=== PATIENT | male | born 1955 | race Two or more races ===

== ENCOUNTER 2024-01-31 14:44 | Inpatient (IN) | payer MEDICARE, MEDICAID ==
[2024-01-31] VITALS (15 sets, daily range): BP systolic 70–159; BP diastolic 21–64; PULSE 89–128; RESP 20; TEMP 99.3–101.1; O2SAT 93–100
[~2024-01-31] VITALS: Ht 182.9 cm; Wt 155.5 kg
[2024-01-31] MEDS: LACTATED RINGER'S 1,000 ML IV ONE (00:14)
[2024-01-31] MEDS: ETOMIDATE (2MG/ML) 20ML VIAL IV ONE ×2 (14:50→15:37)
[2024-01-31] MEDS: ROCURONIUM 10MG/ML 10ML VIAL IV ONE ×2 (14:50→15:37)
[2024-01-31] MEDS: NOREPINEPHRINE 8 MG/250ML KIT 250 ML IV ONE (14:55)
[2024-01-31] MEDS: NOREPINEPHRINE 8 MG/250ML KIT 250 ML IV SCH (15:00)
[2024-01-31 15:26] LABS: Basophils # (auto) 0 10 ^3/uL (0-0.2); Eosinophils # (auto) 0 10 ^3/uL (0-0.8); Eosinophils % (auto) 0.2 % (0.0-7.0); Hematocrit 38.2 % (41.0-53.0); Hemoglobin 12.2 g/dL (13.5-17.5); Lymphocytes # (auto) 0.3 10 ^3/uL (0.4-5.4); Lymphocytes % (auto) 2.9 % (10.0-50.0); Mean Corpuscular Hemoglobin 28.2 pg (28.0-32.0); Mean Corpuscular Hgb Conc. 31.9 g/dL (32.0-36.0); Mean Corpuscular Volume 88.5 fL (80.0-100.0); Monocytes # (auto) 0.1 10 ^3/uL (0-1.3); Monocytes % (auto) 0.6 % (0.0-12.0); Neutrophils # (auto) 8.3 10 ^3/uL (1.6-8.6); Neutrophils % (auto) 96.3 % (37.0-80.0); Nucleated Red Blood Cells % 0.1 %; Red Blood Cells 4.31 10^6/uL (4.5-5.90); Red Cell Distribution Width 16.2 % (11.8-14.3); White Blood Cell 8.6 10^3/uL (4.4-10.8)
[2024-01-31 15:40] LABS: Urine Bacteria MANY /hpf (None Seen); Urine Blood 3+ /uL (Negative); Urine Clarity Ex.Turbid (Clear); Urine Color Light-Orange (Yellow); Urine Mucus FEW (None Seen); Urine Protein, UAD 2+ (Negative); Urine Specific Gravity 1.012 (1.001-1.035); Urine Urobilinogen Normal (Negative); Urine WBC 1284 /hpf (0 - 3); Urine WBC Clumps PRESENT /hpf (None Seen)
[2024-01-31] MEDS: VANCOMYCIN 1GM/200ML 200 ML IV ONE (15:41)
[2024-01-31] MEDS: SODIUM CHLORIDE 0.9% 3,000 ML IV ONE (15:41)
[2024-01-31] MEDS: CEFEPIME 2GM/50ML NS 50 ML IV ONE (15:42)
[2024-01-31 15:45] LABS: Alanine Aminotransferase 12 U/L (7-40); Alkaline Phosphatase 112 U/L (46-116); Anion Gap 9 (5-15); Aspartate Aminotransferase 22 U/L (13-40); BUN/Creatinine Ratio 12.7 (10.0-20.0); Bilirubin, Total 1.2 mg/dL (0.2-1.0); Blood Urea Nitrogen 39 mg/dL (9-23); Calcium 8.9 mg/dL (8.7-10.4); Carbon Dioxide 24 mmol/L (20-30); Chloride 104 mmol/L (98-107); Glucose 83 mg/dL (74-106); Lipase 46 U/L (12-53); Potassium 5.5 mmol/L (3.5-5.1); Sodium 137 mmol/L (136-145)
[2024-01-31 15:47] LABS: Lactic Acid w/Reflex 4.9 mmol/L (0.4-2.0)
[2024-01-31] MEDS: MIDAZOLAM DRIP 50 mg/50mL 50 ML IV ONE (16:24)
[2024-01-31] MEDS: MIDAZOLAM DRIP 50 mg/50mL 50 ML IV SCH (16:31)
[2024-01-31] MEDS: VASOPRESSIN 20 UNITS in SODIUM CHL 0.9% 99 ML IV SCH (16:41)
[2024-01-31 16:48] LABS: Base Excess -3.9 mmol/L (-2.0-2.0)
[2024-01-31] MEDS ORDERED: DOCUSATE SOD 100 MG CAP PO PRN (17:30)
[2024-01-31] MEDS ORDERED: ONDANSETRON HCL 4 MG/2 ML VIAL IV PRN (17:30)
[2024-01-31] MEDS ORDERED: MORPHINE SULFATE INJ 2 MG/ml SYRG IV PRN (17:30)
[2024-01-31] MEDS ORDERED: HYDROmorphone HCL 2 MG/ML VL/or syr IV PRN (17:30)
[2024-01-31] MEDS ORDERED: MAALOX PLUS or MAALOX 30 ML PO PRN (17:30)
[2024-01-31] MEDS ORDERED: NITROGLYCERIN 0.4 MG SL TAB SL PRN (17:30)
[2024-01-31] MEDS: PHENYLEPHRINE IV 250 ML IV ONE ×2 (17:55→17:58)
[2024-01-31] MEDS: fentaNYL Drip 2500mCg/250mlNS 250 ML IV SCH (19:50)
[2024-01-31] MEDS: PHENYLEPHRINE IV 250 ML IV SCH (20:00)
[2024-01-31] MEDS: ACETAMINOPHEN 650 mg PER 20.3 mL UD GT PRN (22:12)
[2024-01-31 22:32] LABS: Hemoglobin 11.9 g/dL (13.5-17.5); Mean Corpuscular Hgb Conc. 32.6 g/dL (32.0-36.0); Red Cell Distribution Width 15.8 % (11.8-14.3)
[2024-01-31 22:37] LABS: Hematocrit 36.5 % (41.0-53.0); Mean Corpuscular Volume 85.8 fL (80.0-100.0); Red Blood Cells 4.26 10^6/uL (4.5-5.90)
[2024-01-31 22:46] LABS: Alanine Aminotransferase 14 U/L (7-40); Albumin 2.8 g/dL (3.2-4.8); Alkaline Phosphatase 115 U/L (46-116); Anion Gap 13 (5-15); Aspartate Aminotransferase 31 U/L (13-40); BUN/Creatinine Ratio 14.3 (10.0-20.0); Bilirubin, Total 1.2 mg/dL (0.2-1.0); Blood Urea Nitrogen 46 mg/dL (9-23); Calcium 8.2 mg/dL (8.7-10.4); Carbon Dioxide 19 mmol/L (20-30); Chloride 107 mmol/L (98-107); Glucose 117 mg/dL (74-106); Magnesium 1.7 mg/dL (1.6-2.6); Potassium 5.1 mmol/L (3.5-5.1); Sodium 139 mmol/L (136-145); Total Protein 5.9 g/dL (5.7-8.2)
[2024-01-31 22:48] LABS: White Blood Cell 44.7 10^3/uL (4.4-10.8)
[2024-01-31 22:49] LABS: Basophils % (manual) 0 (0.0-2.0); Blast Cells 0; Eosinophils % (manual) 0 (0-7); Myelocytes % 0; Promyelocytes % 0; Reactive Lymphocytes 0
[2024-01-31] MEDS: NOREPINEPHRINE BITARTRATE 32 MG in SODIUM CHL 0.9% 218 ML IV SCH (22:56)
[2024-01-31] MEDS: PHENYLEPHRINE INJ 80 MG in SODIUM CHL 0.9% 242 ML IV SCH (22:56)
[2024-01-31] MEDS: SODIUM CHLOR 0.9% PF (SALINE LOCK) 10ML VIAL/SYR IV SCH (22:56)
[2024-01-31 23:25] LABS: Band Neutrophils % (manual) 15
[2024-01-31 23:26] LABS: Anisocytosis Slight; Large Platelets FEW; Lymphocytes % (manual) 1 (10.0-50.0); Metamyelocytes % 1; Monocytes % (manual) 4 (0-12); Platelet Estimate Increased
[2024-02-01] VITALS (113 sets, daily range): BP systolic 78–178; BP diastolic 30–90; PULSE 70–130; RESP 16–25; TEMP 97.7–101.1; O2SAT 85–100
[2024-02-01] MEDS ORDERED: VANCOMYCIN PER PHARMACY 0 MG IV SCH (00:15)
[2024-02-01] MEDS: SODIUM ZIRCONIUM CYCL 10 GM PAK PO ONE (01:20)
[2024-02-01] MEDS: PIPERACILLIN-TAZOB 3.375GM 100 ML IV SCH (01:24)
[2024-02-01] MEDS: LACTATED RINGER'S 1,000 ML IV SCH (01:30)
[2024-02-01 04:23] LABS: Mean Corpuscular Hgb Conc. 33.1 g/dL (32.0-36.0)
[2024-02-01 04:25] LABS: Hematocrit 35.8 % (41.0-53.0); Hemoglobin 11.9 g/dL (13.5-17.5); Mean Corpuscular Hemoglobin 28.1 pg (28.0-32.0); Mean Corpuscular Volume 84.9 fL (80.0-100.0); Red Blood Cells 4.22 10^6/uL (4.5-5.90); Red Cell Distribution Width 15.4 % (11.8-14.3)
[2024-02-01 04:36] LABS: Alanine Aminotransferase 14 U/L (7-40); Albumin 2.8 g/dL (3.2-4.8); Alkaline Phosphatase 113 U/L (46-116); Anion Gap 11 (5-15); Aspartate Aminotransferase 29 U/L (13-40); BUN/Creatinine Ratio 15.4 (10.0-20.0); Bilirubin, Total 1.2 mg/dL (0.2-1.0); Blood Urea Nitrogen 47 mg/dL (9-23); Calcium 8.3 mg/dL (8.7-10.4); Carbon Dioxide 20 mmol/L (20-30); Chloride 106 mmol/L (98-107); Glucose 172 mg/dL (74-106); Potassium 5.4 mmol/L (3.5-5.1); Sodium 137 mmol/L (136-145)
[2024-02-01 04:46] LABS: White Blood Cell 35.2 10^3/uL (4.4-10.8)
[2024-02-01 04:47] LABS: Basophils % (manual) 0 (0.0-2.0); Blast Cells 0; Eosinophils % (manual) 0 (0-7); Metamyelocytes % 0; Myelocytes % 0; Promyelocytes % 0; Reactive Lymphocytes 0
[2024-02-01 04:54] LABS: Anisocytosis Slight; Band Neutrophils % (manual) 4; Large Platelets FEW; Lymphocytes % (manual) 4 (10.0-50.0); Monocytes % (manual) 2 (0-12); Platelet Estimate Adequate
[2024-02-01] MEDS: DOPamine 1600MCG/ML D5W 250 ML IV SCH (06:30)
[2024-02-01 07:38] LABS: Base Excess -3.1 mmol/L (-2.0-2.0)
[2024-02-01] MEDS ORDERED: DEXTROSE (50%) 50ML SYRG IV PRN (08:15)
[2024-02-01 09:03] LABS: INR 1.41 (0.9-1.15); Prothrombin Time 14.6 sec (9.3-11.8)
[2024-02-01] MEDS ORDERED: SODIUM CHLORIDE LOCK 0 ML ONE (09:16)
[2024-02-01] MEDS ORDERED: LIDOCAINE 2%HCL (LOCAL ANESTH.) INJ 20ML MDV ONE (09:16)
[2024-02-01] MEDS ORDERED: EPINEPHrine HCL 1 MG/1 ML AMP ONE (09:17)
[2024-02-01] MEDS ORDERED: MIDAZOLAM HCL 5 MG/ML-1ML VIAL ONE (09:17)
[2024-02-01] MEDS ORDERED: GLYCOPYRROLATE 0.2 MG/ML 1ML VIAL ONE (09:17)
[2024-02-01] MEDS ORDERED: LIDOCAINE 2% JELLY 11ml (GLYDO) ONE (09:18)
[2024-02-01] MEDS ORDERED: fentaNYL CITRATE 100 MCG/2 ML VL ONE (09:18)
[2024-02-01] MEDS ORDERED: MEROPENEM 500MG IVPB 50 ML IV SCH (10:00)
[2024-02-01] MEDS: SODIUM BICARB 8.4% 50Meq/50ml SYR INJ IV ONE (10:14)
[2024-02-01] MEDS: DEXTROSE (50%) 50ML SYRG IV ONE (10:14)
[2024-02-01] MEDS: HYDROCORTISONE SOD SUCC 100 MG/2ML INJ VIAL IV SCH (10:15)
[2024-02-01] MEDS: VANCOMYCIN 1GM/200ML 200 ML IV SCH (10:15)
[2024-02-01] MEDS: PANTOPRAZOLE 40 MG/10 ML VIAL INJ IV SCH (10:15)
[2024-02-01] MEDS: ALBUTEROL SULF 2.5 MG/0.5ML(0.5%) NEB SOLN NEB ONE (10:15)
[2024-02-01] MEDS: InsuLIN REG 1unit/0.01ml Soln (100units/ml) IV ONE (10:29)
[2024-02-01] MEDS: ENOXAPARIN SOD 30 MG/0.3 ML SYRINGE SC SCH (10:30)
[2024-02-01 10:40] LABS: INR 1.63 (0.9-1.15); Partial Thromboplastin Time 32.5 SEC (24.5-34.5); Prothrombin Time 16.7 sec (9.3-11.8)
[2024-02-01 11:28] LABS: Base Excess -4.8 mmol/L (-2.0-2.0)
[2024-02-01] MEDS: MEROPENEM 500MG IVPB 50 ML IV ONE (11:43)
[2024-02-01] MEDS: ACCU-CHEK COMFORT CURVE STRIP VI SCH (11:47)
[2024-02-01] MEDS: InsuLIN REG 1unit/0.01ml Soln (100units/ml) SC SCH (12:04)
[2024-02-01 13:48] LABS: Chloride 106 mmol/L (98-107); Potassium 4.7 mmol/L (3.5-5.1); Sodium 140 mmol/L (136-145)
[2024-02-01 13:49] LABS: Anion Gap 10 (5-15); Carbon Dioxide 24 mmol/L (20-30)
[2024-02-01 13:50] LABS: Calcium 8.5 mg/dL (8.7-10.4)
[2024-02-01 13:54] LABS: Glucose 155 mg/dL (74-106)
[2024-02-01 13:55] LABS: BUN/Creatinine Ratio 18.6 (10.0-20.0); Blood Urea Nitrogen 50 mg/dL (9-23)
[2024-02-01 16:20] LABS: Base Excess -5.1 mmol/L (-2.0-2.0)
[2024-02-01] MEDS: ENOXAPARIN SOD 30 MG/0.3 ML SYRINGE SC ONE (18:38)
[2024-02-01] MEDS: MEROPENEM 500MG IVPB 50 ML IV SCH (21:03)
[2024-02-01 22:24] LABS: Base Excess -2.8 mmol/L (-2.0-2.0)
[2024-02-01] MEDS: AZITHROMYCIN 500MG/ 250ML 250 ML IV ONE (23:26)
[2024-02-02] VITALS (111 sets, daily range): BP systolic 93–159; BP diastolic 30–94; PULSE 38–110; RESP 16–37; TEMP 97–99; O2SAT 98–100
[2024-02-02 04:00] LABS: Basophils # (auto) 0 10 ^3/uL (0-0.2); Basophils % (auto) 0.1 % (0.0-2.0); Eosinophils # (auto) 0.2 10 ^3/uL (0-0.8); Eosinophils % (auto) 0.9 % (0.0-7.0); Hematocrit 33.5 % (41.0-53.0); Hemoglobin 11.2 g/dL (13.5-17.5); Lymphocytes # (auto) 0.4 10 ^3/uL (0.4-5.4); Lymphocytes % (auto) 1.9 % (10.0-50.0); Mean Corpuscular Hemoglobin 28.1 pg (28.0-32.0); Mean Corpuscular Hgb Conc. 33.3 g/dL (32.0-36.0); Mean Corpuscular Volume 84.2 fL (80.0-100.0); Monocytes # (auto) 0.8 10 ^3/uL (0-1.3); Monocytes % (auto) 3.5 % (0.0-12.0); Neutrophils # (auto) 21.6 10 ^3/uL (1.6-8.6); Neutrophils % (auto) 93.6 % (37.0-80.0); Red Blood Cells 3.98 10^6/uL (4.5-5.90); Red Cell Distribution Width 15.7 % (11.8-14.3)
[2024-02-02 04:17] LABS: Alanine Aminotransferase 13 U/L (7-40); Albumin 2.8 g/dL (3.2-4.8); Alkaline Phosphatase 103 U/L (46-116); Anion Gap 8 (5-15); Aspartate Aminotransferase 21 U/L (13-40); BUN/Creatinine Ratio 23.7 (10.0-20.0); Blood Urea Nitrogen 47 mg/dL (9-23); Calcium 8.5 mg/dL (8.7-10.4); Carbon Dioxide 25 mmol/L (20-30); Chloride 107 mmol/L (98-107); GFR African American 43 mL/min; GFR Non-African American 36 mL/min; Glucose 175 mg/dL (74-106); Magnesium 1.9 mg/dL (1.6-2.6); Sodium 140 mmol/L (136-145)
[2024-02-02 04:18] LABS: Bilirubin, Total 0.6 mg/dL (0.2-1.0); Phosphorus 4.4 mg/dL (2.4-5.1)
[2024-02-02 08:13] LABS: Base Excess -0.9 mmol/L (-2.0-2.0)
[2024-02-02] MEDS ORDERED: Nepro With Carb Steady 1 Liter Bottle GT SCH (08:30)
[2024-02-02] MEDS ORDERED: LIDOCAINE 2% JELLY 11ml (GLYDO) ONE (08:47)
[2024-02-02] MEDS ORDERED: LIDOCAINE 2%HCL (LOCAL ANESTH.) INJ 20ML MDV ONE (08:47)
[2024-02-02] MEDS ORDERED: EPINEPHrine HCL 1 MG/1 ML AMP ONE (08:47)
[2024-02-02] MEDS ORDERED: GLYCOPYRROLATE 0.2 MG/ML 1ML VIAL ONE (08:48)
[2024-02-02] MEDS: AZITHROMYCIN 500MG/ 250ML 250 ML IV SCH (12:49)
[2024-02-02] MEDS: ENOXAPARIN SOD 60 MG/0.6 ML SYRINGE SC ONE (21:28)
[2024-02-03] VITALS (107 sets, daily range): BP systolic 94–161; BP diastolic 37–83; PULSE 46–88; RESP 17–24; TEMP 96.3–98.5; O2SAT 95–100
[2024-02-03 03:52] LABS: Basophils # (auto) 0 10 ^3/uL (0-0.2); Eosinophils # (auto) 0 10 ^3/uL (0-0.8); Hematocrit 31.6 % (41.0-53.0); Hemoglobin 10.5 g/dL (13.5-17.5); Lymphocytes # (auto) 0.5 10 ^3/uL (0.4-5.4); Lymphocytes % (auto) 3.5 % (10.0-50.0); Mean Corpuscular Hemoglobin 28.2 pg (28.0-32.0); Mean Corpuscular Hgb Conc. 33.3 g/dL (32.0-36.0); Mean Corpuscular Volume 84.6 fL (80.0-100.0); Monocytes # (auto) 0.4 10 ^3/uL (0-1.3); Monocytes % (auto) 3.1 % (0.0-12.0); Neutrophils # (auto) 12.1 10 ^3/uL (1.6-8.6); Neutrophils % (auto) 93.4 % (37.0-80.0); Nucleated Red Blood Cells % 0.1 %; Red Blood Cells 3.74 10^6/uL (4.5-5.90); Red Cell Distribution Width 15.7 % (11.8-14.3)
[2024-02-03 04:06] LABS: Alanine Aminotransferase 11 U/L (7-40); Albumin 2.5 g/dL (3.2-4.8); Alkaline Phosphatase 79 U/L (46-116); Anion Gap 5 (5-15); Aspartate Aminotransferase 16 U/L (13-40); BUN/Creatinine Ratio 34.2 (10.0-20.0); Blood Urea Nitrogen 41 mg/dL (9-23); Calcium 8.5 mg/dL (8.7-10.4); Carbon Dioxide 28 mmol/L (20-30); Chloride 111 mmol/L (98-107); Glucose 130 mg/dL (74-106); Magnesium 2.2 mg/dL (1.6-2.6); Potassium 4.2 mmol/L (3.5-5.1); Sodium 144 mmol/L (136-145)
[2024-02-03 04:07] LABS: Bilirubin, Total 0.5 mg/dL (0.2-1.0); Total Protein 5.4 g/dL (5.7-8.2)
[2024-02-03 08:07] LABS: Base Excess 1.7 mmol/L (-2.0-2.0)
[2024-02-03] MEDS: NOREPINEPHRINE 8 MG/250ML KIT 250 ML IV SCH (09:00)
[2024-02-03] MEDS: ENOXAPARIN SOD 100 MG/1 ML SYRINGE SC SCH (10:36)
[2024-02-03 11:22] LABS: Basophils # (auto) 0 10 ^3/uL (0-0.2); Basophils % (auto) 0.1 % (0.0-2.0); Eosinophils # (auto) 0 10 ^3/uL (0-0.8); Eosinophils % (auto) 0.1 % (0.0-7.0); Hematocrit 30.1 % (41.0-53.0); Lymphocytes # (auto) 0.6 10 ^3/uL (0.4-5.4); Lymphocytes % (auto) 6.3 % (10.0-50.0); Mean Corpuscular Hemoglobin 28.2 pg (28.0-32.0); Mean Corpuscular Hgb Conc. 33.3 g/dL (32.0-36.0); Mean Corpuscular Volume 84.7 fL (80.0-100.0); Monocytes # (auto) 0.4 10 ^3/uL (0-1.3); Monocytes % (auto) 4.5 % (0.0-12.0); Neutrophils # (auto) 8.8 10 ^3/uL (1.6-8.6); Red Blood Cells 3.55 10^6/uL (4.5-5.90); Red Cell Distribution Width 15.4 % (11.8-14.3); White Blood Cell 9.8 10^3/uL (4.4-10.8)
[2024-02-03 11:33] LABS: Chloride 112 mmol/L (98-107); Sodium 145 mmol/L (136-145)
[2024-02-03 11:34] LABS: Anion Gap 3 (5-15); Carbon Dioxide 30 mmol/L (20-30)
[2024-02-03 11:35] LABS: Calcium 8.4 mg/dL (8.7-10.4)
[2024-02-03 11:39] LABS: BUN/Creatinine Ratio 38.8 (10.0-20.0); Blood Urea Nitrogen 40 mg/dL (9-23); Glucose 125 mg/dL (74-106)
[2024-02-03] MEDS: AMPICILLIN SOD 2GM INJ 2 GM in SODIUM CHL 0.9% 100 ML IV SCH (18:08)
[2024-02-03] MEDS: HYDROCORTISONE SOD SUCC 100 MG/2ML INJ VIAL IV SCH (21:57)
[2024-02-04] VITALS (109 sets, daily range): BP systolic 90–184; BP diastolic 35–128; PULSE 59–147; RESP 12–25; TEMP 96.6–99.1; O2SAT 90–100
[2024-02-04 04:09] LABS: Basophils # (auto) 0 10 ^3/uL (0-0.2); Basophils % (auto) 0.1 % (0.0-2.0); Eosinophils # (auto) 0 10 ^3/uL (0-0.8); Eosinophils % (auto) 0.1 % (0.0-7.0); Hematocrit 31.1 % (41.0-53.0); Hemoglobin 10.5 g/dL (13.5-17.5); Lymphocytes # (auto) 0.6 10 ^3/uL (0.4-5.4); Lymphocytes % (auto) 7.2 % (10.0-50.0); Mean Corpuscular Hemoglobin 28.2 pg (28.0-32.0); Mean Corpuscular Hgb Conc. 33.6 g/dL (32.0-36.0); Monocytes # (auto) 0.4 10 ^3/uL (0-1.3); Monocytes % (auto) 5.1 % (0.0-12.0); Neutrophils # (auto) 6.9 10 ^3/uL (1.6-8.6); Neutrophils % (auto) 87.5 % (37.0-80.0); Nucleated Red Blood Cells % 0.1 %; Red Cell Distribution Width 15.5 % (11.8-14.3); White Blood Cell 7.8 10^3/uL (4.4-10.8)
[2024-02-04 04:38] LABS: Alanine Aminotransferase 21 U/L (7-40); Albumin 2.4 g/dL (3.2-4.8); Alkaline Phosphatase 79 U/L (46-116); Anion Gap 5 (5-15); Aspartate Aminotransferase 36 U/L (13-40); BUN/Creatinine Ratio 44.6 (10.0-20.0); Blood Urea Nitrogen 37 mg/dL (9-23); Calcium 8.5 mg/dL (8.7-10.4); Carbon Dioxide 29 mmol/L (20-30); Chloride 113 mmol/L (98-107); Glucose 123 mg/dL (74-106); Potassium 3.9 mmol/L (3.5-5.1); Sodium 147 mmol/L (136-145)
[2024-02-04 04:39] LABS: Bilirubin, Total 0.5 mg/dL (0.2-1.0)
[2024-02-04 07:15] LABS: Base Excess 4.6 mmol/L (-2.0-2.0)
[2024-02-04] MEDS: ALBUMIN 25% 100 ML IV SCH (10:15)
[2024-02-04] MEDS: ALBUMIN 25% 100 ML IV ONE (10:15)
[2024-02-04] MEDS: FUROSEMIDE 20 MG/2 ML VIAL IV ONE (12:34)
[2024-02-04] MEDS: FREE WATER GT SCH (14:00)
[2024-02-04] MEDS ORDERED: MEROPENEM 1GM IVPB 50 ML IV SCH (18:00)
[2024-02-04] MEDS: MEROPENEM 1GM IVPB 50 ML IV SCH (19:00)
[2024-02-05] VITALS (88 sets, daily range): BP systolic 85–194; BP diastolic 53–135; PULSE 71–151; RESP 12–35; TEMP 97.5–98.8; O2SAT 81–100
[2024-02-05 03:30] LABS: Basophils # (auto) 0 10 ^3/uL (0-0.2); Basophils % (auto) 0.1 % (0.0-2.0); Eosinophils # (auto) 0 10 ^3/uL (0-0.8); Eosinophils % (auto) 0.1 % (0.0-7.0); Hemoglobin 10.4 g/dL (13.5-17.5); Lymphocytes # (auto) 0.6 10 ^3/uL (0.4-5.4); Lymphocytes % (auto) 10.3 % (10.0-50.0); Mean Corpuscular Hemoglobin 28.6 pg (28.0-32.0); Mean Corpuscular Hgb Conc. 33.7 g/dL (32.0-36.0); Mean Corpuscular Volume 84.9 fL (80.0-100.0); Monocytes # (auto) 0.2 10 ^3/uL (0-1.3); Monocytes % (auto) 4.5 % (0.0-12.0); Neutrophils # (auto) 4.7 10 ^3/uL (1.6-8.6); Nucleated Red Blood Cells % 0.1 %; Red Blood Cells 3.65 10^6/uL (4.5-5.90); Red Cell Distribution Width 14.8 % (11.8-14.3); White Blood Cell 5.5 10^3/uL (4.4-10.8)
[2024-02-05 03:44] LABS: Chloride 110 mmol/L (98-107); Potassium 3.6 mmol/L (3.5-5.1); Sodium 146 mmol/L (136-145)
[2024-02-05 03:45] LABS: Anion Gap 5 (5-15); Calcium 8.9 mg/dL (8.7-10.4); Carbon Dioxide 31 mmol/L (20-30)
[2024-02-05 03:50] LABS: Blood Urea Nitrogen 33 mg/dL (9-23); Glucose 140 mg/dL (74-106)
[2024-02-05 07:05] LABS: Base Excess 3.3 mmol/L (-2.0-2.0)
[2024-02-05] MEDS: hydrALAZINE HCL 20 MG/ML VL ONE (08:16)
[2024-02-05] MEDS: hydrALAZINE HCL 20 MG/ML VL IV PRN (08:20)
[2024-02-05] MEDS: FUROSEMIDE 20 MG/2 ML VIAL IV ONE (08:48)
[2024-02-05 09:31] LABS: Base Excess 4.1 mmol/L (-2.0-2.0)
[2024-02-05] MEDS: FUROSEMIDE 20 MG/2 ML VIAL IV SCH (09:41)
[2024-02-05] MEDS: METOPROLOL TARTRATE 1MG/1ML-5ML VIAL IV ONE (09:42)
[2024-02-05] MEDS: ENOXAPARIN SOD 150 MG/1 ML SYRINGE SC SCH (09:55)
[2024-02-05] MEDS ORDERED: ENOXAPARIN SOD 100 MG/1 ML SYRINGE SC SCH (10:00)
[2024-02-06] VITALS (41 sets, daily range): BP systolic 114–173; BP diastolic 44–141; PULSE 73–127; RESP 12–23; TEMP 97.8–98.6; O2SAT 88–100
[2024-02-06 03:47] LABS: Basophils # (auto) 0 10 ^3/uL (0-0.2); Basophils % (auto) 0.1 % (0.0-2.0); Eosinophils # (auto) 0 10 ^3/uL (0-0.8); Eosinophils % (auto) 0.5 % (0.0-7.0); Lymphocytes # (auto) 0.7 10 ^3/uL (0.4-5.4); Lymphocytes % (auto) 12.8 % (10.0-50.0); Mean Corpuscular Hemoglobin 28.4 pg (28.0-32.0); Mean Corpuscular Hgb Conc. 33.3 g/dL (32.0-36.0); Mean Corpuscular Volume 85.5 fL (80.0-100.0); Monocytes # (auto) 0.3 10 ^3/uL (0-1.3); Neutrophils # (auto) 4.7 10 ^3/uL (1.6-8.6); Neutrophils % (auto) 81.6 % (37.0-80.0); Red Blood Cells 3.86 10^6/uL (4.5-5.90); Red Cell Distribution Width 15.1 % (11.8-14.3); White Blood Cell 5.8 10^3/uL (4.4-10.8)
[2024-02-06 04:06] LABS: Alanine Aminotransferase 29 U/L (7-40); Alkaline Phosphatase 69 U/L (46-116); Anion Gap 5 (5-15); BUN/Creatinine Ratio 41.4 (10.0-20.0); Blood Urea Nitrogen 29 mg/dL (9-23); Calcium 8.8 mg/dL (8.7-10.4); Carbon Dioxide 35 mmol/L (20-30); Chloride 110 mmol/L (98-107); Glucose 107 mg/dL (74-106); Magnesium 1.9 mg/dL (1.6-2.6); Potassium 3.7 mmol/L (3.5-5.1); Sodium 150 mmol/L (136-145)
[2024-02-06 04:07] LABS: Albumin 2.9 g/dL (3.2-4.8); Aspartate Aminotransferase 29 U/L (13-40); Bilirubin, Total 0.6 mg/dL (0.2-1.0); Total Protein 5.7 g/dL (5.7-8.2)
[2024-02-06] MEDS: D5W 5% 1,000 ML IV SCH (06:18)
[2024-02-06] MEDS: FUROSEMIDE 20 MG/2 ML VIAL IV SCH (06:20)
[2024-02-06] MEDS: DOCUSATE SOD 100 MG CAP PO ONE (08:45)
[2024-02-06] MEDS ORDERED: DOCUSATE SOD 100 MG CAP PO PRN (08:45)
[2024-02-06 09:20] LABS: Urine Bacteria FEW /hpf (None Seen); Urine Blood 3+ /uL (Negative); Urine Clarity Turbid (Clear); Urine Color Yellow (Yellow); Urine Mucus FEW (None Seen); Urine Protein, UAD TRACE (Negative); Urine Specific Gravity 1.017 (1.001-1.035); Urine Urobilinogen Normal (Negative); Urine WBC 73 /hpf (0 - 3); Urine pH 5.5 (5.0-9.0)
[2024-02-06] MEDS ORDERED: FUROSEMIDE 20 MG/2 ML VIAL IV SCH (10:00)
[2024-02-06] MEDS: METOPROLOL TARTRATE 1MG/1ML-5ML VIAL IV ONE ×2 (10:08→10:10)
[2024-02-06] MEDS: CARVEDILOL 3.125 MG TAB PO ONE (21:29)
[2024-02-06] MEDS: CARVEDILOL 3.125 MG TAB PO SCH (22:00)
[2024-02-07] VITALS (29 sets, daily range): BP systolic 69–141; BP diastolic 37–66; PULSE 78–128; RESP 13–24; TEMP 97.6–98.5; O2SAT 93–100
[2024-02-07 05:06] LABS: Basophils # (auto) 0 10 ^3/uL (0-0.2); Basophils % (auto) 0.2 % (0.0-2.0); Eosinophils # (auto) 0.3 10 ^3/uL (0-0.8); Eosinophils % (auto) 3.8 % (0.0-7.0); Hematocrit 34.1 % (41.0-53.0); Hemoglobin 11.4 g/dL (13.5-17.5); Lymphocytes # (auto) 1.3 10 ^3/uL (0.4-5.4); Lymphocytes % (auto) 16.5 % (10.0-50.0); Mean Corpuscular Hemoglobin 28.3 pg (28.0-32.0); Mean Corpuscular Hgb Conc. 33.4 g/dL (32.0-36.0); Mean Corpuscular Volume 84.9 fL (80.0-100.0); Monocytes # (auto) 0.6 10 ^3/uL (0-1.3); Monocytes % (auto) 7.8 % (0.0-12.0); Neutrophils # (auto) 5.8 10 ^3/uL (1.6-8.6); Neutrophils % (auto) 71.7 % (37.0-80.0); Nucleated Red Blood Cells % 0.1 %; Red Blood Cells 4.02 10^6/uL (4.5-5.90); White Blood Cell 8.1 10^3/uL (4.4-10.8)
[2024-02-07 05:20] LABS: Alanine Aminotransferase 33 U/L (7-40); Albumin 2.8 g/dL (3.2-4.8); Alkaline Phosphatase 65 U/L (46-116); Aspartate Aminotransferase 30 U/L (13-40); BUN/Creatinine Ratio 35.9 (10.0-20.0); Blood Urea Nitrogen 23 mg/dL (9-23); Calcium 8.4 mg/dL (8.7-10.4); Chloride 105 mmol/L (98-107); Glucose 95 mg/dL (74-106); Magnesium 1.5 mg/dL (1.6-2.6); Potassium 2.9 mmol/L (3.5-5.1); Sodium 148 mmol/L (136-145)
[2024-02-07 05:21] LABS: Bilirubin, Total 0.7 mg/dL (0.2-1.0); Total Protein 5.3 g/dL (5.7-8.2)
[2024-02-07 05:28] LABS: Anion Gap 2.99999 (5-15); Carbon Dioxide > 40 mmol/L (20-30)
[2024-02-07] MEDS: POTASSIUM CHL 20MEQ/100ML 100 ML IV ONE (06:29)
[2024-02-07] MEDS: MAGNESIUM SULFATE 1GM/100ML 100 ML IV SCH (08:52)
[2024-02-07 08:56] LABS: INR 1.3 (0.9-1.15); Partial Thromboplastin Time 34.7 SEC (24.5-34.5); Prothrombin Time 13.5 sec (9.3-11.8)
[2024-02-07] MEDS: POTASSIUM CHL 20MEQ/100ML 100 ML IV SCH (10:20)
[2024-02-07] MEDS ORDERED: ACETYLCYSTEINE 10 %(100MG/ML) SOL 4ML NEB PRN (10:30)
[2024-02-07 13:18] LABS: Base Excess 13.6 mmol/L (-2.0-2.0)
[2024-02-07] MEDS: POTASSIUM CHLORIDE 20 MEQ, LIDOCAINE 1% (LOCAL ANESTH.) 2 ML in SODIUM CHL 0.9% 100 ML IV ONE (13:29)
[2024-02-07] MEDS ORDERED: ACETYLCYSTEINE 10 %(100MG/ML) SOL 4ML NEB SCH (14:00)
[2024-02-07] MEDS ORDERED: IPRATROPIUM BROM 0.5 MG/2.5ML INH SOL NEB SCH (14:00)
[2024-02-07] MEDS ORDERED: ALBUTEROL SULF 2.5 MG/0.5ML(0.5%) NEB SOLN NEB SCH (14:00)
[2024-02-07 14:47] LABS: Body Fluid Red Blood Cells 310000 CUMM (0-2000); Body Fluid White Blood Cells 5 CUMM (0-200)
[2024-02-08] VITALS (17 sets, daily range): BP systolic 105–131; BP diastolic 43–65; PULSE 78–97; RESP 13–22; TEMP 97–98.4; O2SAT 94–100
[2024-02-08 05:31] LABS: Basophils # (auto) 0 10 ^3/uL (0-0.2); Basophils % (auto) 0.3 % (0.0-2.0); Eosinophils # (auto) 0.4 10 ^3/uL (0-0.8); Eosinophils % (auto) 6.8 % (0.0-7.0); Hematocrit 34.2 % (41.0-53.0); Hemoglobin 11.5 g/dL (13.5-17.5); Lymphocytes # (auto) 1.3 10 ^3/uL (0.4-5.4); Lymphocytes % (auto) 20.9 % (10.0-50.0); Mean Corpuscular Hemoglobin 28.5 pg (28.0-32.0); Mean Corpuscular Hgb Conc. 33.7 g/dL (32.0-36.0); Mean Corpuscular Volume 84.5 fL (80.0-100.0); Monocytes # (auto) 0.5 10 ^3/uL (0-1.3); Monocytes % (auto) 8.8 % (0.0-12.0); Neutrophils # (auto) 3.9 10 ^3/uL (1.6-8.6); Neutrophils % (auto) 63.2 % (37.0-80.0); Red Blood Cells 4.05 10^6/uL (4.5-5.90); Red Cell Distribution Width 15.1 % (11.8-14.3); White Blood Cell 6.2 10^3/uL (4.4-10.8)
[2024-02-08 05:38] LABS: Alanine Aminotransferase 30 U/L (7-40); Albumin 2.7 g/dL (3.2-4.8); Alkaline Phosphatase 61 U/L (46-116); Aspartate Aminotransferase 25 U/L (13-40); BUN/Creatinine Ratio 33.9 (10.0-20.0); Blood Urea Nitrogen 19 mg/dL (9-23); Calcium 8.3 mg/dL (8.7-10.4); Chloride 101 mmol/L (98-107); Glucose 91 mg/dL (74-106); Magnesium 1.7 mg/dL (1.6-2.6); Sodium 146 mmol/L (136-145); Total Protein 5.3 g/dL (5.7-8.2)
[2024-02-08 05:57] LABS: Anion Gap 4.99999 (5-15); Carbon Dioxide > 40 mmol/L (20-30)
[2024-02-08] MEDS: POTASSIUM CHL 20MEQ/100ML 100 ML IV ONE (07:00)
[2024-02-08 07:39] LABS: Base Excess 15.8 mmol/L (-2.0-2.0)
[2024-02-08] MEDS: POTASSIUM CHL 20MEQ/100ML 100 ML IV SCH (09:00)
[2024-02-08] MEDS: MAGNESIUM SULFATE 1GM/100ML 100 ML IV SCH (09:52)
[2024-02-08] MEDS: ASPirin 81 mg TAB PO SCH (09:56)
[2024-02-08 13:08] LABS: Protein, Body Fluid 2.9 g/dL (.)
[2024-02-08] MEDS ORDERED: ACETYLCYSTEINE 10 %(100MG/ML) SOL 4ML NEB ONE (13:30)
[2024-02-08] MEDS ORDERED: ACETYLCYSTEINE 10 %(100MG/ML) SOL 4ML NEB PRN (13:30)
[2024-02-08] MEDS: ALBUTEROL SULF 2.5 MG/0.5ML(0.5%) NEB SOLN NEB SCH (18:36)
[2024-02-08] MEDS: ACETYLCYSTEINE 10 %(100MG/ML) SOL 4ML NEB SCH (18:36)
[2024-02-08 21:11] LABS: Potassium 3.6 mmol/L (3.5-5.1)
[2024-02-08 21:17] LABS: Magnesium 1.9 mg/dL (1.6-2.6)
[2024-02-08] MEDS: ACETAMINOPHEN 325 MG TAB PO PRN (22:44)
[2024-02-08] MEDS: ATORVASTATIN 20 MG TAB PO SCH (22:44)
[2024-02-08] MEDS: CEFEPIME 2GM/50ML NS 50 ML IV ONE (23:30)
[2024-02-09] VITALS (24 sets, daily range): BP systolic 109–126; BP diastolic 33–56; PULSE 69–97; RESP 15–24; TEMP 97.7–98.5; O2SAT 89–100
[2024-02-09 05:13] LABS: Basophils # (auto) 0 10 ^3/uL (0-0.2); Basophils % (auto) 0.4 % (0.0-2.0); Eosinophils # (auto) 0.6 10 ^3/uL (0-0.8); Eosinophils % (auto) 10.6 % (0.0-7.0); Hematocrit 36.3 % (41.0-53.0); Lymphocytes # (auto) 1.5 10 ^3/uL (0.4-5.4); Lymphocytes % (auto) 26.1 % (10.0-50.0); Mean Corpuscular Hemoglobin 28.1 pg (28.0-32.0); Mean Corpuscular Hgb Conc. 33.1 g/dL (32.0-36.0); Mean Corpuscular Volume 84.6 fL (80.0-100.0); Monocytes # (auto) 0.5 10 ^3/uL (0-1.3); Monocytes % (auto) 9.2 % (0.0-12.0); Neutrophils % (auto) 53.7 % (37.0-80.0); Nucleated Red Blood Cells % 0.1 %; Red Blood Cells 4.29 10^6/uL (4.5-5.90); Red Cell Distribution Width 15.3 % (11.8-14.3); White Blood Cell 5.7 10^3/uL (4.4-10.8)
[2024-02-09 05:29] LABS: Alanine Aminotransferase 27 U/L (7-40); Albumin 2.6 g/dL (3.2-4.8); Alkaline Phosphatase 58 U/L (46-116); Aspartate Aminotransferase 26 U/L (13-40); BUN/Creatinine Ratio 24.6 (10.0-20.0); Blood Urea Nitrogen 14 mg/dL (9-23); Calcium 8.1 mg/dL (8.7-10.4); Chloride 99 mmol/L (98-107); Glucose 104 mg/dL (74-106); Magnesium 1.8 mg/dL (1.6-2.6); Potassium 3.2 mmol/L (3.5-5.1); Sodium 144 mmol/L (136-145)
[2024-02-09 05:30] LABS: Bilirubin, Total 1.2 mg/dL (0.2-1.0); Total Protein 5.3 g/dL (5.7-8.2)
[2024-02-09 05:38] LABS: Anion Gap 4.99999 (5-15)
[2024-02-09 05:39] LABS: Carbon Dioxide > 40 mmol/L (20-30)
[2024-02-09] MEDS: MAGNESIUM SULFATE 1GM/100ML 100 ML IV SCH (06:33)
[2024-02-09] MEDS: POTASSIUM CHL 20MEQ/100ML 100 ML IV ONE (08:06)
[2024-02-09 08:18] LABS: Base Excess 13.8 mmol/L (-2.0-2.0)
[2024-02-09] MEDS: CEFEPIME 2GM/50ML NS 50 ML IV SCH (09:55)
[2024-02-09] MEDS: ENOXAPARIN SOD 40 MG/0.4 ML SYRINGE SC SCH (09:57)
[2024-02-09] MEDS ORDERED: ENOXAPARIN SOD 40 MG/0.4 ML SYRINGE SC SCH (10:00)
[2024-02-09] MEDS: ACETYLCYSTEINE 10 %(100MG/ML) SOL 4ML NEB SCH (10:52)
[2024-02-09] MEDS: ALBUTEROL SULF 2.5 MG/0.5ML(0.5%) NEB SOLN NEB SCH (15:50)
[2024-02-09] MEDS: CEFEPIME 2GM/50ML 50 ML IV SCH (17:57)
[2024-02-09 20:19] LABS: Potassium 3.4 mmol/L (3.5-5.1)
[2024-02-09] MEDS ORDERED: CEFEPIME 2GM/50ML 50 ML IV SCH (22:00)
[2024-02-09] MEDS: POTASSIUM EFFERVESENT TAB 25 MEQ PO ONE (22:48)
[2024-02-10] VITALS (45 sets, daily range): BP systolic 73–130; BP diastolic 19–67; PULSE 76–108; RESP 11–28; TEMP 97.8–98.7; O2SAT 89–100
[2024-02-10 06:20] LABS: Basophils # (auto) 0 10 ^3/uL (0-0.2); Basophils % (auto) 0.5 % (0.0-2.0); Eosinophils # (auto) 0.6 10 ^3/uL (0-0.8); Hematocrit 35.2 % (41.0-53.0); Lymphocytes # (auto) 1.5 10 ^3/uL (0.4-5.4); Lymphocytes % (auto) 22.3 % (10.0-50.0); Mean Corpuscular Hemoglobin 28.5 pg (28.0-32.0); Mean Corpuscular Volume 83.7 fL (80.0-100.0); Monocytes # (auto) 0.6 10 ^3/uL (0-1.3); Monocytes % (auto) 8.4 % (0.0-12.0); Neutrophils % (auto) 59.8 % (37.0-80.0); Nucleated Red Blood Cells % 0.1 %; Red Blood Cells 4.21 10^6/uL (4.5-5.90); Red Cell Distribution Width 15.3 % (11.8-14.3); White Blood Cell 6.6 10^3/uL (4.4-10.8)
[2024-02-10 06:37] LABS: Alanine Aminotransferase 29 U/L (7-40); Albumin 2.8 g/dL (3.2-4.8); Alkaline Phosphatase 59 U/L (46-116); BUN/Creatinine Ratio 28.8 (10.0-20.0); Blood Urea Nitrogen 17 mg/dL (9-23); Calcium 8.3 mg/dL (8.7-10.4); Chloride 97 mmol/L (98-107); Glucose 98 mg/dL (74-106); Magnesium 1.9 mg/dL (1.6-2.6); Potassium 3.6 mmol/L (3.5-5.1); Sodium 140 mmol/L (136-145)
[2024-02-10 06:38] LABS: Bilirubin, Total 1.5 mg/dL (0.2-1.0); Total Protein 5.5 g/dL (5.7-8.2)
[2024-02-10 06:52] LABS: Aspartate Aminotransferase 25 U/L (13-40)
[2024-02-10 06:57] LABS: Anion Gap 2.99999 (5-15); Carbon Dioxide > 40 mmol/L (20-30)
[2024-02-10 09:09] LABS: Base Excess 9.4 mmol/L (-2.0-2.0)
[2024-02-10] MEDS: POTASSIUM EFFERVESENT TAB 25 MEQ PO ONE (09:12)
[2024-02-10] MEDS: fentaNYL CITRATE 100 MCG/2 ML VL IV ONE (18:23)
[2024-02-10] MEDS: MIDAZOLAM HCL 5 MG/ML-1ML VIAL IV ONE (18:23)
[2024-02-11] VITALS (35 sets, daily range): BP systolic 91–127; BP diastolic 40–60; PULSE 75–105; RESP 13–25; TEMP 97.5–99.2; O2SAT 92–100
[2024-02-11 05:14] LABS: Basophils # (auto) 0.1 10 ^3/uL (0-0.2); Basophils % (auto) 0.8 % (0.0-2.0); Eosinophils # (auto) 0.5 10 ^3/uL (0-0.8); Eosinophils % (auto) 5.9 % (0.0-7.0); Hematocrit 34.6 % (41.0-53.0); Hemoglobin 11.8 g/dL (13.5-17.5); Lymphocytes # (auto) 1.8 10 ^3/uL (0.4-5.4); Mean Corpuscular Hgb Conc. 34.2 g/dL (32.0-36.0); Mean Corpuscular Volume 84.7 fL (80.0-100.0); Monocytes # (auto) 0.7 10 ^3/uL (0-1.3); Monocytes % (auto) 7.9 % (0.0-12.0); Neutrophils # (auto) 5.4 10 ^3/uL (1.6-8.6); Neutrophils % (auto) 64.4 % (37.0-80.0); Nucleated Red Blood Cells % 0.4 %; Red Blood Cells 4.08 10^6/uL (4.5-5.90); Red Cell Distribution Width 15.6 % (11.8-14.3); White Blood Cell 8.4 10^3/uL (4.4-10.8)
[2024-02-11 05:29] LABS: Alanine Aminotransferase 29 U/L (7-40); Alkaline Phosphatase 59 U/L (46-116); Anion Gap 3 (5-15); Aspartate Aminotransferase 33 U/L (13-40); BUN/Creatinine Ratio 26.3 (10.0-20.0); Blood Urea Nitrogen 15 mg/dL (9-23); Calcium 8.6 mg/dL (8.7-10.4); Carbon Dioxide 36 mmol/L (20-30); Chloride 99 mmol/L (98-107); Glucose 100 mg/dL (74-106); Magnesium 1.8 mg/dL (1.6-2.6); Potassium 4.2 mmol/L (3.5-5.1); Sodium 138 mmol/L (136-145)
[2024-02-11 05:30] LABS: Albumin 2.7 g/dL (3.2-4.8); Bilirubin, Total 1.5 mg/dL (0.2-1.0); Total Protein 5.6 g/dL (5.7-8.2)
[2024-02-12] VITALS (29 sets, daily range): BP systolic 90–128; BP diastolic 33–75; PULSE 76–105; RESP 9–26; TEMP 97.5–98.7; O2SAT 93–100
[2024-02-12 04:59] LABS: Basophils # (auto) 0.1 10 ^3/uL (0-0.2); Basophils % (auto) 0.8 % (0.0-2.0); Eosinophils # (auto) 0.4 10 ^3/uL (0-0.8); Eosinophils % (auto) 6.5 % (0.0-7.0); Hematocrit 35.8 % (41.0-53.0); Hemoglobin 12.1 g/dL (13.5-17.5); Lymphocytes # (auto) 1.8 10 ^3/uL (0.4-5.4); Lymphocytes % (auto) 27.5 % (10.0-50.0); Mean Corpuscular Hemoglobin 28.1 pg (28.0-32.0); Mean Corpuscular Hgb Conc. 33.8 g/dL (32.0-36.0); Mean Corpuscular Volume 83.1 fL (80.0-100.0); Monocytes # (auto) 0.6 10 ^3/uL (0-1.3); Monocytes % (auto) 9.8 % (0.0-12.0); Neutrophils # (auto) 3.6 10 ^3/uL (1.6-8.6); Neutrophils % (auto) 55.4 % (37.0-80.0); Nucleated Red Blood Cells % 0.1 %; Red Blood Cells 4.31 10^6/uL (4.5-5.90); Red Cell Distribution Width 15.6 % (11.8-14.3); White Blood Cell 6.5 10^3/uL (4.4-10.8)
[2024-02-12 05:15] LABS: Chloride 98 mmol/L (98-107); Potassium 3.9 mmol/L (3.5-5.1); Sodium 136 mmol/L (136-145)
[2024-02-12 05:16] LABS: Anion Gap 4 (5-15); Carbon Dioxide 34 mmol/L (20-30)
[2024-02-12 05:21] LABS: BUN/Creatinine Ratio 19.7 (10.0-20.0); Blood Urea Nitrogen 14 mg/dL (9-23); Glucose 99 mg/dL (74-106)
[2024-02-13] VITALS (25 sets, daily range): BP systolic 103–119; BP diastolic 34–77; PULSE 57–93; RESP 10–86; TEMP 97.8–98.7; O2SAT 91–98
[2024-02-13 04:47] LABS: Basophils # (auto) 0.1 10 ^3/uL (0-0.2); Eosinophils # (auto) 0.4 10 ^3/uL (0-0.8); Eosinophils % (auto) 5.2 % (0.0-7.0); Hematocrit 36.7 % (41.0-53.0); Hemoglobin 12.3 g/dL (13.5-17.5); Lymphocytes % (auto) 28.3 % (10.0-50.0); Mean Corpuscular Hemoglobin 27.9 pg (28.0-32.0); Mean Corpuscular Hgb Conc. 33.5 g/dL (32.0-36.0); Mean Corpuscular Volume 83.3 fL (80.0-100.0); Monocytes # (auto) 0.7 10 ^3/uL (0-1.3); Neutrophils # (auto) 3.9 10 ^3/uL (1.6-8.6); Neutrophils % (auto) 55.5 % (37.0-80.0); Nucleated Red Blood Cells % 0.1 %; Red Blood Cells 4.41 10^6/uL (4.5-5.90); Red Cell Distribution Width 15.4 % (11.8-14.3); White Blood Cell 6.9 10^3/uL (4.4-10.8)
[2024-02-13 05:07] LABS: Alanine Aminotransferase 32 U/L (7-40); Albumin 3.1 g/dL (3.2-4.8); Alkaline Phosphatase 70 U/L (46-116); Anion Gap 6 (5-15); Aspartate Aminotransferase 29 U/L (13-40); BUN/Creatinine Ratio 25.4 (10.0-20.0); Bilirubin, Total 1.8 mg/dL (0.2-1.0); Blood Urea Nitrogen 17 mg/dL (9-23); Calcium 9.1 mg/dL (8.7-10.4); Carbon Dioxide 34 mmol/L (20-30); Chloride 95 mmol/L (98-107); Glucose 106 mg/dL (74-106); Magnesium 1.8 mg/dL (1.6-2.6); Potassium 3.8 mmol/L (3.5-5.1); Sodium 135 mmol/L (136-145); Total Protein 6.3 g/dL (5.7-8.2)
[2024-02-13] MEDS: FUROSEMIDE 40 MG/4 ML VIAL IV SCH (09:34)
[2024-02-13] MEDS: cefTRIAXone 1GM/50ML D5W 50 ML IV SCH (09:34)
[2024-02-13] MEDS ORDERED: ATOR20TA50 PO (16:00)
[2024-02-13] MEDS ORDERED: ASPI-325 PO (16:00)
[2024-02-13] MEDS ORDERED: CEFP200T15 PO (16:00)
[2024-02-13] MEDS ORDERED: CARV-214 PO (16:00)
[2024-02-14] VITALS (15 sets, daily range): BP systolic 103–121; BP diastolic 50–73; PULSE 68–95; RESP 16–80; TEMP 36.4; O2SAT 90–100
[2024-02-14 06:39] LABS: Basophils # (auto) 0.1 10 ^3/uL (0-0.2); Basophils % (auto) 1.2 % (0.0-2.0); Eosinophils # (auto) 0.3 10 ^3/uL (0-0.8); Eosinophils % (auto) 4.7 % (0.0-7.0); Hematocrit 35.2 % (41.0-53.0); Lymphocytes # (auto) 1.7 10 ^3/uL (0.4-5.4); Lymphocytes % (auto) 26.9 % (10.0-50.0); Mean Corpuscular Hemoglobin 28.3 pg (28.0-32.0); Mean Corpuscular Volume 83.2 fL (80.0-100.0); Monocytes # (auto) 0.7 10 ^3/uL (0-1.3); Monocytes % (auto) 10.9 % (0.0-12.0); Neutrophils # (auto) 3.5 10 ^3/uL (1.6-8.6); Neutrophils % (auto) 56.3 % (37.0-80.0); Nucleated Red Blood Cells % 0.1 %; Red Blood Cells 4.22 10^6/uL (4.5-5.90); Red Cell Distribution Width 15.4 % (11.8-14.3); White Blood Cell 6.3 10^3/uL (4.4-10.8)
[2024-02-14 07:00] LABS: Alanine Aminotransferase 29 U/L (7-40); Albumin 3.2 g/dL (3.2-4.8); Alkaline Phosphatase 75 U/L (46-116); Anion Gap 6 (5-15); Aspartate Aminotransferase 29 U/L (13-40); BUN/Creatinine Ratio 29.2 (10.0-20.0); Bilirubin, Total 1.8 mg/dL (0.2-1.0); Blood Urea Nitrogen 19 mg/dL (9-23); Calcium 9.6 mg/dL (8.7-10.4); Carbon Dioxide 33 mmol/L (20-30); Chloride 97 mmol/L (98-107); Glucose 93 mg/dL (74-106); Magnesium 1.8 mg/dL (1.6-2.6); Potassium 3.4 mmol/L (3.5-5.1); Sodium 136 mmol/L (136-145); Total Protein 6.2 g/dL (5.7-8.2)
[2024-02-14] MEDS: POTASSIUM CHLORIDE 60 MEQ, LIDOCAINE 1% (LOCAL ANESTH.) 6 ML in SODIUM CHL 0.9% 500 ML IV ONE (07:30)
[2024-02-15] VITALS (8 sets, daily range): BP systolic 104–116; BP diastolic 46–55; PULSE 62–91; RESP 16–20; TEMP 97.4–98.2; O2SAT 95–98
[2024-02-15 04:28] LABS: Basophils # (auto) 0.1 10 ^3/uL (0-0.2); Basophils % (auto) 1.2 % (0.0-2.0); Eosinophils # (auto) 0.3 10 ^3/uL (0-0.8); Eosinophils % (auto) 5.1 % (0.0-7.0); Hematocrit 34.2 % (41.0-53.0); Hemoglobin 11.8 g/dL (13.5-17.5); Lymphocytes # (auto) 1.7 10 ^3/uL (0.4-5.4); Lymphocytes % (auto) 29.8 % (10.0-50.0); Mean Corpuscular Hemoglobin 28.6 pg (28.0-32.0); Mean Corpuscular Hgb Conc. 34.5 g/dL (32.0-36.0); Monocytes # (auto) 0.6 10 ^3/uL (0-1.3); Monocytes % (auto) 10.3 % (0.0-12.0); Neutrophils # (auto) 3.1 10 ^3/uL (1.6-8.6); Neutrophils % (auto) 53.6 % (37.0-80.0); Nucleated Red Blood Cells % 0.1 %; Red Blood Cells 4.12 10^6/uL (4.5-5.90); Red Cell Distribution Width 15.4 % (11.8-14.3); White Blood Cell 5.7 10^3/uL (4.4-10.8)
[2024-02-15 04:45] LABS: Alanine Aminotransferase 28 U/L (7-40); Albumin 3.2 g/dL (3.2-4.8); Alkaline Phosphatase 76 U/L (46-116); Anion Gap 5 (5-15); Aspartate Aminotransferase 24 U/L (13-40); BUN/Creatinine Ratio 31.7 (10.0-20.0); Bilirubin, Total 1.4 mg/dL (0.2-1.0); Blood Urea Nitrogen 20 mg/dL (9-23); Calcium 9.5 mg/dL (8.7-10.4); Carbon Dioxide 32 mmol/L (20-30); Chloride 101 mmol/L (98-107); Glucose 107 mg/dL (74-106); Magnesium 1.8 mg/dL (1.6-2.6); Potassium 3.9 mmol/L (3.5-5.1); Sodium 138 mmol/L (136-145); Total Protein 6.2 g/dL (5.7-8.2)
== END 2024-02-15 15:10 | disposition hospice, home (50) | DRG 870 ==
LOC: ER 14:44 → EDBD 14:44 → TELE 17:21 → ICU WEST 21:14 → DOU IN ICU 02-06 13:45 → TELE-CENTR 02-13 04:59
PROVIDERS: ADMIT Internal Medicine Pulmonary Disease; ATTEND Internal Medicine Pulmonary Disease
PROC: 5A1955Z Respiratory Ventilation, Greater than 96 Consecutive Hours (ICD-10-PCS; principal; 2024-01-31)
PROC: 05HM33Z Insertion of Infusion Device into Right Internal Jugular Vein, Percutaneous Approach (ICD-10-PCS; 2024-01-31)
PROC: 03HY32Z Insertion of Monitoring Device into Upper Artery, Percutaneous Approach (ICD-10-PCS; 2024-01-31)
PROC: 0BH17EZ Insertion of Endotracheal Airway into Trachea, Via Natural or Artificial Opening (ICD-10-PCS; 2024-01-31)
PROC: 0B9B8ZZ Drainage of Left Lower Lobe Bronchus, Via Natural or Artificial Opening Endoscopic (ICD-10-PCS; 2024-02-02)
PROC: 0B968ZZ Drainage of Right Lower Lobe Bronchus, Via Natural or Artificial Opening Endoscopic (ICD-10-PCS; 2024-02-02)
PROC: 5A09357 Assistance with Respiratory Ventilation, Less than 24 Consecutive Hours, Continuous Positive Airway Pressure (ICD-10-PCS; 2024-02-05)
PROC: 0W9B3ZZ Drainage of Left Pleural Cavity, Percutaneous Approach (ICD-10-PCS; 2024-02-07)
PROC: 05HB33Z Insertion of Infusion Device into Right Basilic Vein, Percutaneous Approach (ICD-10-PCS; 2024-02-09)
PROC: B54MZZA Ultrasonography of Right Upper Extremity Veins, Guidance (ICD-10-PCS; 2024-02-09)
PROC: 0BC78ZZ Extirpation of Matter from Left Main Bronchus, Via Natural or Artificial Opening Endoscopic (ICD-10-PCS; 2024-02-10)
DX: A41.59 Other Gram-negative sepsis (principal); R65.21 Severe sepsis with septic shock; J86.9 Pyothorax without fistula; I21.A1 Myocardial infarction type 2; G93.41 Metabolic encephalopathy; J15.69 Pneumonia due to other Gram-negative bacteria; J96.21 Acute and chronic respiratory failure with hypoxia; I50.33 Acute on chronic diastolic (congestive) heart failure; J15.9 Unspecified bacterial pneumonia; N39.0 Urinary tract infection, site not specified; N17.9 Acute kidney failure, unspecified; Z68.43 Body mass index [BMI] 50.0-59.9, adult; E87.4 Mixed disorder of acid-base balance; E87.0 Hyperosmolality and hypernatremia; I13.0 Hypertensive heart and chronic kidney disease with heart failure and stage 1 through stage 4 chronic kidney disease, or unspecified chronic kidney disease; Z51.5 Encounter for palliative care; E87.5 Hyperkalemia; I48.91 Unspecified atrial fibrillation; R31.9 Hematuria, unspecified; E88.09 Other disorders of plasma-protein metabolism, not elsewhere classified; E66.01 Morbid (severe) obesity due to excess calories; N18.9 Chronic kidney disease, unspecified; N20.0 Calculus of kidney; Z79.899 Other long term (current) drug therapy; E11.22 Type 2 diabetes mellitus with diabetic chronic kidney disease
CPT/HCPCS: 32555; 36415; 36600; 70450; 70486; 71045; 76604; 76775; 76942; 80048; 80053; 80069; 80202; 81001; 82550; 82805; 82962; 83036; 83605; 83615; 83690; 83735; 83880; 83986; 84132; 84484; 85007; 85025; 85027; 85610; 85730; 87040; 87070; 87077; 87081; 87086; 87186; 87205; 89051; 92610; 93005; 93306; 93886; 93970; 94002; 94003; 94640; 94660; 94668; 97163; G0378; J0171; J0692; J1815; J2001; J2185; J2250; J2470; J2543; J3480; J7060; P9047

== ENCOUNTER 2024-05-28 17:28 | Inpatient (IN) | payer OTHER, MEDICAID ==
[~2024-05-28] VITALS: Ht 170.2 cm; Wt 161.5 kg
[~2024-05-28 17:28] MED LIST: ASPI-325 PO; ATOR20TA50 PO; CARV-214 PO; CEFP200T15 PO
--- NOTE | 2024-05-28 18:02 | ED.PDOC ---
History of Present Illness HPI Comments 69 y/o M, with a Hx of morbid obesity, CHF, DM, and HTN, is BIBA for ALOC, today. Per EMS report, patient is a resident of an assisted living facility and was brought after staff, initially called after finding patient altered for the past 2 hours. On scene, EMS informs on faculty staff that talked to them then reporting instead of patient being altered for 2 days and became non-verbal, today. Upon arrival to ED, patient is stated to be unable to answer questions and is A&Ox2. At time of assessment, patient is answering questions but is lethargic. Patient has no other reported associated symptoms or recent sick ailments or injuries. Chief Complaint: ALOC Time Seen by MD: 05:45 Primary Care Provider: JAMILAH Reviewed Notes: Nurses Notes, Top Frame Fitter Notes, Medications, Allergies Allergies: Coded Allergies: UNOBTAINABLE (Unverified , 01/31/24) ALOC Home Meds Active Scripts Cefpodoxime Proxetil (Cefpodoxime Proxetil) 200 Mg Tab, 1 TAB PO BID for 21 Days, #42 TAB Prov:JULIANO GOMEZ RESIDENT 02/13/24 Carvedilol (COREG) 3.125 Mg Tab, 3.125 MG PO Q12HR for 30 Days, #60 TAB Prov:JULIANO GOMEZ RESIDENT 02/13/24 Atorvastatin Calcium (ATORVASTATIN CALCIUM) 20 Mg Tab, 40 MG PO HS for 30 Days, #60 TAB 2 Refills Prov:JULIANO GOMEZ RESIDENT 02/13/24 Aspirin (Aspirin Low Dose) 81 Mg Tab, 81 MG PO DAILY for 30 Days, #30 TAB 2 Refills Prov:JULIANO GOMEZ RESIDENT 02/13/24 Information Source: Emergency Med Personnel Mode of Arrival: EMS Severity: Moderate Timing: Days Duration: Since onset Prehospital treatment: 12 Lead EKG, Automotive Glass Specialist Past Medical History PAST MEDICAL HISTORY: CHF, DM, HTN Past Medical History (Other): morbid obesity Surgical History: Unknown, Unobtainable Family History Family History: Unknown, Unobtainable Social History Smoker: Unknown, Unobtainable Alcohol: Unknown, Unobtainable Drugs: Unknown, Unobtainable Lives In: Assisted Care, Retirement Constitutional: denies: chills, diaphoresis, fatigue, fever, malaise, sweats, weakness, others EENTM: denies: blurred vision, double vision, ear bleeding, ear discharge, ear drainage, ear pain, ear ringing, eye pain, eye redness, hearing loss, mouth p ain, mouth swelling, nasal discharge, nose bleeding, nose congestion, nose pain, photophobia, tearing, throat pain, throat swelling, voice changes, others Respiratory: denies: cough, hemoptysis, orthopnea, SOB at rest, shortness of br eath, SOB with excertion, stridor, wheezing, others Cardiovascular: denies: chest pain, dizzy spells, diaphoresis, Dyspnea on exertion, edema, irregular heart beat, left arm pain, lightheadedness, palpitations, PND, syncope, others Gastrointestinal: denies: abdomen distended, abdominal pain, blood streaked bowels, constipated, diarrhea, dysphagia, difficulty swallowing, hematemesis, melena, nausea, poor appetite, poor fluid intake, rectal bleeding, rectal pain, vomiting, others Genitourinary: denies: burning, dysuria, flank pain, frequency, hematuria, incontinence, penile discharge, penile sore, pain, testicle pain, testicle swelling, urgency, others Neurological: reports: others (ALOC); denies: dizziness, fainting, headache, left sided numbness, left sided weakness, numbness, paresthesia, pre-existing deficit, right sided numbness, right sided weakness, seizure, speech problems, tingling, tremors, weakness Musculoskeletal: denies: back pain, gout, joint pain, joint swelling, muscle pain, muscle stiffness, neck pain, others Integumetry: denies: bruises, change in color, change in hair/nails, dryness, laceration, lesions, lumps, rash, wounds, others Allergic/Immunocompromised: denies: Difficulty Healing, Frequent Infections, Hives, Itching, others Hematologic/Lymphatic: denies: anemia, blood clots, easy bleeding, easy bruising, swollen glands, others Endocrine: denies: excessive hunger, excessive sweating, excessive thirst, excessive urination, flushing, intolerance to cold, intolerance to heat, unexplained weight gain, unexplained weight loss, others Psychiatric: denies: anxiety, bipolar disorder, depression, hopeless, panic disorder, schizophrenia, sleepless, suicidal, others All Other Systems: Reviewed and Negative Physical Exam General Appearance: Moderate Distress, Obese, Other (lethargic ) HEENT: Normal ENT Inspection, Pharynx Normal, TMs Normal Neck: Full Range of Motion, Non-Tender, Normal, Normal Inspection Respiratory: Chest Non-Tender, Decreased Breath Sounds, No Accessory Muscle Use, No Respiratory Distress Cardiovascular: No Edema, No JVD, No Murmur, No Gallop, Normal Peripheral Pulses, Regular Rate/Rhythm Breast Exam: Deferred Gastrointestinal: No Organomegaly, Non Tender, No Pulsatile Mass, Normal Bowel Sounds, Soft Genitalia: Deferred Pelvic: Deferred Rectal: Deferred Extremities: No calf tenderness, Normal capillary refill, No pedal edema Musculoskeletal : Apperance: Normal Neurologic: open die inspector II-XII nml as Tested, Other (answering questions and lethargic ) Cerebellar Function: Normal Reflexes: Normal Skin: Dry, Normal Color, Warm Lymphatic: No Adenopathy Was a procedure done? Was a procedure done?: No Differential Dx Considerations may include: encephalopathy, electrolyte imbalance, hypotension, dehydration, hyperglycemia, TIA, CVA X-Ray, Labs, Meds, VS Vital Signs Date Time Temp Pulse Resp B/P (MAP) Pulse Ox O2 Delivery O2 Flow Rate FiO2 05/28/24 19:30 Nasal Cannula* 2 28 05/28/24 18:22 78 05/28/24 18:05 98.3 74 12 119/47 (71) 96 98.3 05/28/24 18:03 92 Nasal Cannula* 2 28 05/28/24 17:36 98.3 57 20 103/60 (74) 92 Lab Test 05/28/24 19:04 05/28/24 18:06 Range/Units White Blood Count 10.4 4.4-10.8 10^3/uL Red Blood Count 4.68 4.5-5.90 10^6/uL Hemoglobin 14.3 13.5-17.5 g/dL Hematocrit 43.1 41.0-53.0 % Mean Corpuscular Volume 92.2 80.0-100.0 fL Mean Corpuscular Hemoglobin 30.5 28.0-32.0 pg Mean Corpuscular Hemoglobin Concent 33.1 32.0-36.0 g/dL Red Cell Distribution Width 16.7 H 11.8-14.3 % Platelet Count 255 140-450 10^3/uL Mean Platelet Volume 7.9 6.9-10.8 fL Neutrophils (%) (Auto) 84.9 H 37.0-80.0 % Lymphocytes (%) (Auto) 8.4 L 10.0-50.0 % Monocytes (%) (Auto) 5.8 0.0-12.0 % Eosinophils (%) (Auto) 0.7 0.0-7.0 % Basophils (%) (Auto) 0.2 0.0-2.0 % Neutrophils # (Auto) 8.9 H 1.6-8.6 10 ^3/uL Lymphocytes # (Auto) 0.9 0.4-5.4 10 ^3/uL Monocytes # (Auto) 0.6 0-1.3 10 ^3/uL Eosinophils # (Auto) 0.1 0-0.8 10 ^3/uL Basophils # (Auto) 0 0-0.2 10 ^3/uL Nucleated Red Blood Cells 0.1 % Sodium Level 144 136-145 mmol/L Potassium Level 4.7 3.5-5.1 mmol/L Chloride Level 105 98-107 mmol/L Carbon Dioxide Level 36 H 20-31 mmol/L Anion Gap 3 L 5-15 Blood Urea Nitrogen 22 9-23 mg/dL Creatinine 1.00 0.700-1.30 mg/dL Glomerular Filtration Rate Calc 81 >90 mL/min BUN/Creatinine Ratio 22.0 H 10.0-20.0 Serum Glucose 113 H 74-106 mg/dL Lactic Acid Level 1.3 0.4-2.0 mmol/L Calcium Level 9.4 8.7-10.4 mg/dL Total Bilirubin 1.0 0.2-1.0 mg/dL Aspartate Amino Transferase (AST) 8 L 13-40 U/L Alanine Aminotransferase (ALT) < 9 7-40 U/L Alkaline Phosphatase 88 46-116 U/L Total Protein 7.3 5.7-8.2 g/dL Albumin 3.4 3.2-4.8 g/dL Plasma/Serum Blood Alcohol < 3.0 <10 mg/dL Urine Color Yellow Yellow Urine Clarity Turbid H Clear Urine pH 6.0 5.0-9.0 Urine Specific [place] 1.016 1.001-1.035 Urine Protein Trace H Negative Urine Ketones Negative Negative Urine Blood Trace H Negative /uL Urine Nitrite Negative Negative Urine Bilirubin Negative Negative Urine Urobilinogen 2 H Negative mg/dL Urine Leukocyte Esterase 3+ Negative /uL Urine RBC 25 0 - 3 /hpf Urine WBC 278 0 - 3 /hpf Urine WBC Clumps Present None Seen /hpf Urine Squamous Epithelial Cells Few <5 /hpf Urine Bacteria Few H None Seen /hpf Urine Mucus Few None Seen Urine Glucose Normal Normal mg/dL Urine Opiates Screen Neg NEGATIVE Urine Fentanyl Screen Neg NEGATIVE Urine Barbiturates Screen Neg NEGATIVE Urine Phencyclidine Screen Neg NEGATIVE Urine Amphetamines Screen Neg NEGATIVE Urine Benzodiazepines Screen Neg NEGATIVE Urine Cocaine Screen Neg NEGATIVE Urine Cannabinoids Screen Neg NEGATIVE Current Medications Medications (Trade) Dose Ordered Sig/Lito Route Start Time Stop Time Status Last Admin Azithromycin 250 ml @ 125 mls/hr ONCE ONCE IV 05/28/24 19:00 05/28/24 20:59 DC 05/28/24 20:56 Ceftriaxone Sodium 50 ml @ 100 mls/hr ONCE ONCE IV 05/28/24 19:00 05/28/24 19:29 DC 05/28/24 20:21 X-Ray, Labs, Meds, VS Comment Patient will be admitted for altered mental status, pneumonia, urinary tract infection Patient will be started on azithromycin and Rocephin Time of 1ST Reevaluation: 06:15 Reevaluation 1ST: Unchanged Patient Education/Counseling: Diagnosis, Treatment, Other (patient is altered ) Family Education/Counseling: Diagnosis, Treatment, No Family Present Departure 1 Departure Time of Disposition: 21:29 Impression: Primary Impression: Altered mental state Qualified Codes: R40.0 - Somnolence Additional Impressions: Urinary tract infection Qualified Codes: N30.01 - Acute cystitis with hematuria Pneumonia Qualified Codes: J18.9 - Pneumonia, unspecified organism Disposition: ADMITTED INPATIENT Condition: Fair Critical Care Note Critical Care Time?: Yes (35 min-critical care time only) Stability Stability form required: No Heart Score Heart Score: Heart Score Response (Comments) Value History N/A 0 EKG N/A 0 Age N/A 0 Risk Factors N/A 0 Troponin N/A 0 Total 0 I personally scribed for ALANNA CORDOBA ([email or web address]) on 05/28/24 at 18:02. Electronically submitted by Matt Auguste ([email or web address]). ALANNA CORDOBA May 28, 2024 18:02
[2024-05-28 18:03] VITALS: O2SAT 92
[2024-05-28 18:25] LABS: Urine Bacteria FEW /hpf (None Seen); Urine Blood TRACE /uL (Negative); Urine Clarity Turbid (Clear); Urine Color Yellow (Yellow); Urine Mucus FEW (None Seen); Urine Protein, UAD TRACE (Negative); Urine Specific Gravity 1.016 (1.001-1.035); Urine Urobilinogen 2 mg/dL (Negative); Urine WBC 278 /hpf (0 - 3); Urine WBC Clumps PRESENT /hpf (None Seen)
--- NOTE | 2024-05-28 18:42 | DVH ---
CHEST RADIOGRAPH Indication:cough Technique: Single frontal view of the chest was obtained Comparison: XY CHEST PORTABLE on DOS: 02/15/24, XY CHEST PORTABLE on DOS: 02/14/24, XY CHEST PORTABLE on DOS: 02/13/24 FINDINGS: Lines and Tubes: None Lungs: Opacification of the right medial lower lung zone. Mild interstitial prominence. Left lower l cricket zone opacification with obscuration of the left hemidiaphragm. Pleura: No effusion. No pneumothorax. Cardiomediastinal contours: Limited evaluation of the heart size due to left lower lung zone opacific ation. Bones: No acute osseous abnormality. IMPRESSION: Improved aeration of the left hemithorax with persistent left lower lung zone opacification which may be from pleural effusion/ atelectasis / pneumonia. Right lower lung zone pneumonia/atelectasis. Pulmonary vascular congestion.
[2024-05-28 19:36] LABS: Basophils # (auto) 0 10 ^3/uL (0-0.2); Basophils % (auto) 0.2 % (0.0-2.0); Eosinophils # (auto) 0.1 10 ^3/uL (0-0.8); Eosinophils % (auto) 0.7 % (0.0-7.0); Hematocrit 43.1 % (41.0-53.0); Hemoglobin 14.3 g/dL (13.5-17.5); Lymphocytes # (auto) 0.9 10 ^3/uL (0.4-5.4); Lymphocytes % (auto) 8.4 % (10.0-50.0); Mean Corpuscular Hemoglobin 30.5 pg (28.0-32.0); Mean Corpuscular Hgb Conc. 33.1 g/dL (32.0-36.0); Mean Corpuscular Volume 92.2 fL (80.0-100.0); Monocytes # (auto) 0.6 10 ^3/uL (0-1.3); Monocytes % (auto) 5.8 % (0.0-12.0); Neutrophils # (auto) 8.9 10 ^3/uL (1.6-8.6); Neutrophils % (auto) 84.9 % (37.0-80.0); Nucleated Red Blood Cells % 0.1 %; Platelet Count (auto) 255 10^3/uL (140-450); Red Blood Cells 4.68 10^6/uL (4.5-5.90); Red Cell Distribution Width 16.7 % (11.8-14.3); White Blood Cell 10.4 10^3/uL (4.4-10.8)
[2024-05-28 19:47] LABS: Amphetamine Screen, Urine Neg (NEGATIVE); Barbiturate Scree,Urine Neg (NEGATIVE); Benzodiazephine Screen, Urine Neg (NEGATIVE); Cocaine Screen, Urine Neg (NEGATIVE)
[2024-05-28 19:48] LABS: Cannabinoid Screen, Urine Neg (NEGATIVE); Opiate Scree,Urine Neg (NEGATIVE); Phencyclidine Screen, Urine Neg (NEGATIVE)
[2024-05-28 19:55] LABS: Albumin 3.4 g/dL (3.2-4.8); Alkaline Phosphatase 88 U/L (46-116); Anion Gap 3 (5-15); Aspartate Aminotransferase 8 U/L (13-40); Blood Alcohol < 3.0 mg/dL (<10); Blood Urea Nitrogen 22 mg/dL (9-23); Calcium 9.4 mg/dL (8.7-10.4); Carbon Dioxide 36 mmol/L (20-31); Chloride 105 mmol/L (98-107); Glucose 113 mg/dL (74-106); Potassium 4.7 mmol/L (3.5-5.1); Sodium 144 mmol/L (136-145)
[2024-05-28 19:56] LABS: Total Protein 7.3 g/dL (5.7-8.2)
[2024-05-28 20:08] LABS: Alanine Aminotransferase < 9 U/L (7-40)
[2024-05-28] MEDS: cefTRIAXone 1GM/50ML D5W 50 ML IV ONE (20:21)
[2024-05-28] MEDS: AZITHROMYCIN 500MG/ 250ML 250 ML IV ONE (20:56)
--- NOTE | 2024-05-28 21:21 | DVH ---
EXAM: CT HEAD WITHOUT CONTRAST INDICATION: aloc TECHNIQUE: CT of the head without intravenous contrast. Radiation Dose Information: CT Dose: CTDI volume is 66.54 mGy. Dose-length product is 1066.36 mGy*cm The dose indicators for CT are the volume Computed Tomography (CT) Dose Index (CTDIvol) and the Dose Length Product (DLP), and are measured in units of mGy and mGy-cm, respectively. These indicators are not patient dose, but values generated from the CT scanner acquisition factors. The report includes radiation exposure data for exposures received during this examination. COMPARISON: CT HEAD WITHOUT CONTRAST on DOS: 02/02/24 FINDINGS: There is no evidence of acute intracranial hemorrhage, extra-axial collection, mass effect, midline s hift, herniation or hydrocephalus. The ventricles, sulci and cisterns are age appropriate. The sierra-white differentiation is intact. Patchy periventricular and subcortical white matter hypoattenuation is nonspecific but may be related to small vessel ischemic disease. The visualized paranasal sinuses and mastoid air cells are clear. The surrounding soft tissues and osseous structures are unremarkable. IMPRESSION: 1. No CT evidence of acute intracranial abnormality. HS:Y
[2024-05-28] MEDS ORDERED: DEXTROSE (50%) 50ML SYRG IV PRN (22:30)
[2024-05-28] MEDS ORDERED: ONDANSETRON HCL 4 MG/2 ML VIAL IV PRN (22:30)
[2024-05-28] MEDS ORDERED: ACETAMINOPHEN 325 MG TAB PO PRN (22:30)
[2024-05-29] VITALS (11 sets, daily range): BP systolic 81–148; BP diastolic 32–96; PULSE 60–95; RESP 16–22; TEMP 97.4–98.4; O2SAT 88–99
--- NOTE | 2024-05-29 00:29 | DVHHP2 ---
History of Present Illness Reason for Visit: Altered mental status History of Present Illness 69-year-old male presents for evaluation of altered mental status. Patient is a resident at a assisted living facility. He was noted to be progressively more confused over the past two days. Currently he is lethargic oriented x2. R eports mild shortness for breath. No blurred vision or unilateral weakness. No chest pain. Past Medical History Hypertension, CHF, diabetes mellitus Past Surgical History Unknown Family History Unknown Smoke: No ALCOHOL: none Drugs: None Lives: [facility] Review of Systems Review of Systems Review of systems are currently negative otherwise addressed in HPI. Allergies: Coded Allergies: UNOBTAINABLE (Unverified , 01/31/24) ALOC Medications Current Medications Medications Dose Ordered Sig/Lito Route Start Time Stop Time Status Last Admin Dose Admin Nystatin 1 applic BID TOP 05/29/24 10:00 Ciprofloxacin HCl 1 drop Q6HR EACHEYE 05/29/24 00:00 Ceftriaxone Sodium 50 ml @ 100 mls/hr DAILY@2100 IV 05/29/24 21:00 Azithromycin 250 ml @ 125 mls/hr DAILY@2200 IV 05/29/24 22:00 Atorvastatin Calcium 40 mg HS PO 05/29/24 22:00 Aspirin 81 mg DAILY PO 05/29/24 10:00 Metoprolol Tartrate 25 mg BID PO 05/29/24 10:00 Lisinopril 10 mg DAILY PO 05/29/24 10:00 Furosemide 20 mg DAILY PO 05/29/24 10:00 Apixaban 5 mg BID PO 05/29/24 10:00 UNV Diagnostic Test (Pha) 1 strip ACHS 05/29/24 07:00 Insulin Human Regular ACHS SC 05/29/24 07:00 Dextrose 50 ml UD PRN IV 05/28/24 22:30 Ondansetron HCl 4 mg Q4HP PRN IV 05/28/24 22:30 Enoxaparin Sodium 40 mg DAILY SC 05/29/24 10:00 UNV Acetaminophen 650 mg Q6HP PRN PO 05/28/24 22:30 Exam Vital Signs Vital Signs Date Time Temp Pulse Resp B/P (MAP) Pulse Ox O2 Delivery O2 Flow Rate FiO2 05/28/24 19:30 Nasal Cannula* 2 28 05/28/24 18:22 78 05/28/24 18:05 98.3 12 119/47 (71) 96 98.3 Exam Gen: 69 year old male in mild distress, morbidly obese Skin: Warm, dry, normal color and texture, rash under left breast HEENT: Normocephalic atraumatic, mucous membranes moist and pink, bilateral conjunctivitis. Neck: Cervical and supraclavicular nodes normal without enlargement, trachea is midline, thyroid gland is normal without masses. Pulmonary: Diminished breath sounds bilaterally. Cardiac: Regular rate and rhythm. No murmur Abdomen: Soft, nontender, nondistended, bowel sounds present all 4 quadrants, no guarding, no rigidity, no organomegaly. Extremities: No cyanosis, clubbing, no edema Neuro: Cranial nerves II through XII grossly intact, normal affect and speech, no focal motor deficits. Labs/Xrays ORDERING PHYSICIAN: ALANNA CORDOBA MOLD DESIGN ENGINEER PROCEDURE(s): CXRP - CHEST PORTABLE REASON: cough ORDER NUMBER(s): [id number], ACCESSION NUMBER(s): [id number] CHEST RADIOGRAPH Indication:cough Technique: Single frontal view of the chest was obtained Comparison: XY CHEST PORTABLE on DOS: 02/15/24, XY CHEST PORTABLE on DOS: 02/14/24, XY CHEST PORTABLE on DOS: 02/13/24 FINDINGS: Lines and Tubes: None Lungs: Opacification of the right medial lower lung zone. Mild interstitial prominence. Left lower lung zone opacification with obscuration of the left hemidiaphragm. Pleura: No effusion. No pneumothorax. Cardiomediastinal contours: Limited evaluation of the heart size due to left lower lung zone opacification. Bones: No acute osseous abnormality. IMPRESSION: Improved aeration of the left hemithorax with persistent left lower lung zone opacification which may be from pleural effusion/ atelectasis / pneumonia. Right lower lung zone pneumonia/atelectasis. Pulmonary vascular congestion. ATED BY: DEIDRE FANG DO ORDERING PHYSICIAN: ALANNA CORDOBA MOLD DESIGN ENGINEER PROCEDURE(s): HWOCT - HEAD WITHOUT CONTRAST REASON: aloc ORDER NUMBER(s): [id number], ACCESSION NUMBER(s): [id number] EXAM: CT HEAD WITHOUT CONTRAST INDICATION: aloc TECHNIQUE: CT of the head without intravenous contrast. Radiation Dose Information: CT Dose: CTDI volume is 66.54 mGy. Dose-length product is 1066.36 mGy*cm The dose indicators for CT are the volume Computed Tomography (CT) Dose Index (CTDIvol) and the Dose Length Product (DLP), and are measured in units of mGy and mGy-cm, respectively. These indicators are not patient dose, but values generated from the CT scanner acquisition factors. The report includes radiation exposure data for exposures received during this examination. COMPARISON: CT HEAD WITHOUT CONTRAST on DOS: 02/02/24 FINDINGS: There is no evidence of acute intracranial hemorrhage, extra-axial collection, mass effect, midline shift, herniation or hydrocephalus. The ventricles, sulci and cisterns are age appropriate. The sierra-white differentiation is intact. Patchy periventricular and subcortical white matter hypoattenuation is nonspecific but may be related to small vessel ischemic disease. The visualized paranasal sinuses and mastoid air cells are clear. The surrounding soft tissues and osseous structures are unremarkable. IMPRESSION: 1. No CT evidence of acute intracranial abnormality. Labs Test 05/28/24 19:04 05/28/24 18:06 Range/Units White Blood Count 10.4 4.4-10.8 10^3/uL Red Blood Count 4.68 4.5-5.90 10^6/uL Hemoglobin 14.3 13.5-17.5 g/dL Hematocrit 43.1 41.0-53.0 % Mean Corpuscular Volume 92.2 80.0-100.0 fL Mean Corpuscular Hemoglobin 30.5 28.0-32.0 pg Mean Corpuscular Hemoglobin Concent 33.1 32.0-36.0 g/dL Red Cell Distribution Width 16.7 H 11.8-14.3 % Platelet Count 255 140-450 10^3/uL Mean Platelet Volume 7.9 6.9-10.8 fL Neutrophils (%) (Auto) 84.9 H 37.0-80.0 % Lymphocytes (%) (Auto) 8.4 L 10.0-50.0 % Monocytes (%) (Auto) 5.8 0.0-12.0 % Eosinophils (%) (Auto) 0.7 0.0-7.0 % Basophils (%) (Auto) 0.2 0.0-2.0 % Neutrophils # (Auto) 8.9 H 1.6-8.6 10 ^3/uL Lymphocytes # (Auto) 0.9 0.4-5.4 10 ^3/uL Monocytes # (Auto) 0.6 0-1.3 10 ^3/uL Eosinophils # (Auto) 0.1 0-0.8 10 ^3/uL Basophils # (Auto) 0 0-0.2 10 ^3/uL Nucleated Red Blood Cells 0.1 % Sodium Level 144 136-145 mmol/L Potassium Level 4.7 3.5-5.1 mmol/L Chloride Level 105 98-107 mmol/L Carbon Dioxide Level 36 H 20-31 mmol/L Anion Gap 3 L 5-15 Blood Urea Nitrogen 22 9-23 mg/dL Creatinine 1.00 0.700-1.30 mg/dL Glomerular Filtration Rate Calc 81 >90 mL/min BUN/Creatinine Ratio 22.0 H 10.0-20.0 Serum Glucose 113 H 74-106 mg/dL Lactic Acid Level 1.3 0.4-2.0 mmol/L Calcium Level 9.4 8.7-10.4 mg/dL Total Bilirubin 1.0 0.2-1.0 mg/dL Aspartate Amino Transferase (AST) 8 L 13-40 U/L Alanine Aminotransferase (ALT) < 9 7-40 U/L Alkaline Phosphatase 88 46-116 U/L Total Protein 7.3 5.7-8.2 g/dL Albumin 3.4 3.2-4.8 g/dL Plasma/Serum Blood Alcohol < 3.0 <10 mg/dL Urine Color Yellow Yellow Urine Clarity Turbid H Clear Urine pH 6.0 5.0-9.0 Urine Specific [place] 1.016 1.001-1.035 Urine Protein Trace H Negative Urine Ketones Negative Negative Urine Blood Trace H Negative /uL Urine Nitrite Negative Negative Urine Bilirubin Negative Negative Urine Urobilinogen 2 H Negative mg/dL Urine Leukocyte Esterase 3+ Negative /uL Urine RBC 25 0 - 3 /hpf Urine WBC 278 0 - 3 /hpf Urine WBC Clumps Present None Seen /hpf Urine Squamous Epithelial Cells Few <5 /hpf Urine Bacteria Few H None Seen /hpf Urine Mucus Few None Seen Urine Glucose Normal Normal mg/dL Urine Opiates Screen Neg NEGATIVE Urine Fentanyl Screen Neg NEGATIVE Urine Barbiturates Screen Neg NEGATIVE Urine Phencyclidine Screen Neg NEGATIVE Urine Amphetamines Screen Neg NEGATIVE Urine Benzodiazepines Screen Neg NEGATIVE Urine Cocaine Screen Neg NEGATIVE Urine Cannabinoids Screen Neg NEGATIVE Assessment/Plan Assessment/Plan Assessment Metabolic encephalopathy Bilateral pneumonia Urinary tract infection Bilateral conjunctivitis Diabetes mellitus Morbid obesity Plan Admit the patient to [facility] surge to the hospitalist Rocephin/azithromycin Resume home medications Continue treatment per orders. Plan discussed with: Other My Orders Orders - BHASKAR DEXTER AGACNP Procedure Category Date Status Time Nystatin Powder PHA 05/29/24 In Process (Mycostatin Powder) 10:00 Ciprofloxacin 0.3% PHA 05/29/24 In Process Opthalmic (Cipro Opth 00:00 Ceftriaxone 1gm/50ml PHA 05/29/24 In Process D5w (Rocephin) 21:00 Azithromycin 500mg/ PHA 05/29/24 In Process 250ml (Zithromax 50 22:00 Atorvastatin (Lipitor) PHA 05/29/24 In Process 22:00 Aspirin Tablet PHA 05/29/24 In Process 10:00 Metoprolol Tartrate PHA 05/29/24 In Process Tablet (Lopressor Ta 10:00 Lisinopril Tablet PHA 05/29/24 In Process (Zestril Tablet) 10:00 Furosemide Tablet PHA 05/29/24 In Process (Lasix Tablet) 10:00 Apixaban (Eliquis) PHA 05/29/24 Pending 10:00 Blood Culture LUIS 05/28/24 In Process 22:29 Glucose Blood PHA 05/29/24 In Process (Accu-Chek Comfort 07:00 Insulin R (Human) PHA 05/29/24 In Process (Insulin R) 07:00 Dextrose 50% Syringe PHA 05/28/24 In Process 22:30 Admit ADMIT 05/28/24 Transmitted 22:29 Ondansetron Hcl PHA 05/28/24 In Process (Zofran) 22:30 Enoxaparin Sodium PHA 05/29/24 Pending (Lovenox) 10:00 Complete Blood Count LAB 05/29/24 Logged 04:00 Comprehensive LAB 05/29/24 Logged Metabolic Panel 04:00 Cardiac DIET 05/29/24 Transmitted Diet-2gna,Lofat,Lochol Breakfast Condition: Stable ZOE 05/28/24 In Process 22:29 Acetaminophen Tablet PHA 05/28/24 In Process (Tylenol Tablet) 22:30 Bedside Commode ZOE 05/28/24 In Process 22:29 Sequential ZOE 05/28/24 In Process Compression Device Date of Service: May 28, 2024 Billing Provider: BHASKAR DEXTER Common Visit Codes: [id number] INP/OBS CARE (HIGH) BHASKAR DEXTER May 29, 2024 00:29
[2024-05-29] MEDS: CIPROFLOXACIN 0.3%OPTH(EYE) SOL 5ML EACHEYE SCH (00:48)
[2024-05-29] MEDS: SODIUM CHLORIDE 0.9% 500 ML IV ONE (01:18)
[2024-05-29] MEDS: ALBUMIN 5% 250 ML IV ONE (04:26)
[2024-05-29] MEDS: InsuLIN REG 1unit/0.01ml Soln (100units/ml) SC SCH (06:25)
[2024-05-29] MEDS: ACCU-CHEK COMFORT CURVE STRIP VI SCH (06:26)
--- NOTE | 2024-05-29 06:47 | ECG ---
[facility] Test Date: 2024-05-28 Test Time: 18:22:36 Pat Name: ERROL ABDULLAHI Department: ER Room: 0294 A Gender: M Merchandise Planner: VANI : 1955 Requested By: ALANNA CORDOBA Order Number: [id number] Reading MD: Marciano Rodriguez Measurements Intervals Heath Rate: 78 P: 0 ND: 0 QRS: 133 QRSD: 112 T: 44 QT: 432 QTc: 493 Interpretive Statements Atrial fibrillation Incomplete right bundle branch block Anterior infarct, old Baseline wander in lead(s) V3,V6 Electronically Signed On 06-06-2024 12:57:15 PST by Marciano Rodriguez Please click the below link to view image of tracing.
[2024-05-29 07:11] LABS: Basophils # (auto) 0.1 10 ^3/uL (0-0.2); Basophils % (auto) 0.9 % (0.0-2.0); Eosinophils # (auto) 0.1 10 ^3/uL (0-0.8); Hematocrit 39.8 % (41.0-53.0); Hemoglobin 12.8 g/dL (13.5-17.5); Lymphocytes # (auto) 1.4 10 ^3/uL (0.4-5.4); Lymphocytes % (auto) 12.2 % (10.0-50.0); Mean Corpuscular Hemoglobin 29.8 pg (28.0-32.0); Mean Corpuscular Hgb Conc. 32.2 g/dL (32.0-36.0); Mean Corpuscular Volume 92.4 fL (80.0-100.0); Monocytes # (auto) 0.7 10 ^3/uL (0-1.3); Monocytes % (auto) 6.1 % (0.0-12.0); Neutrophils % (auto) 79.8 % (37.0-80.0); Nucleated Red Blood Cells % 0.2 %; Platelet Count (auto) 173 10^3/uL (140-450); Red Blood Cells 4.31 10^6/uL (4.5-5.90); Red Cell Distribution Width 16.6 % (11.8-14.3); White Blood Cell 11.3 10^3/uL (4.4-10.8)
[2024-05-29 07:35] LABS: Bilirubin, Total 0.7 mg/dL (0.2-1.0); Total Protein 6.7 g/dL (5.7-8.2)
[2024-05-29 07:42] LABS: Glucose 101 mg/dL (74-106)
[2024-05-29 07:45] LABS: Alanine Aminotransferase 10 U/L (7-40); Albumin 3.3 g/dL (3.2-4.8); Alkaline Phosphatase 78 U/L (46-116); Anion Gap 7 (5-15); Aspartate Aminotransferase 29 U/L (13-40); BUN/Creatinine Ratio 25.8 (10.0-20.0); Blood Urea Nitrogen 24 mg/dL (9-23); Calcium 8.9 mg/dL (8.7-10.4); Carbon Dioxide 29 mmol/L (20-31); Chloride 108 mmol/L (98-107); Potassium 5.2 mmol/L (3.5-5.1); Sodium 144 mmol/L (136-145)
[2024-05-29] MEDS: LISINOPRIL 5 MG TAB PO SCH (10:00)
[2024-05-29] MEDS: ASPirin 81 mg TAB PO SCH (10:00)
[2024-05-29] MEDS ORDERED: APIXABAN 5 MG TAB PO SCH (10:00)
[2024-05-29] MEDS: FUROSEMIDE 20 MG TAB PO SCH (10:00)
[2024-05-29] MEDS: METOPROLOL TARTRATE 25 MG TAB PO SCH (10:00)
[2024-05-29] MEDS: NYSTATIN TOPICAL POWDER 15GM TOP SCH (13:21)
--- NOTE | 2024-05-29 14:54 | DVH ---
Bilateral Chest Sonogram Clinical history: Pleural effusion Technique: Limited sonographic evaluation of the right and left chest was performed. Findings/Impression: There is no significant pleural effusion.
--- NOTE | 2024-05-29 15:35 | DVHPN2 ---
Subjective Patient encephalopathic Reviewed: Care Plan, H&P, Labs, Medications Changes from previous H/P or p: No Changes General: Per HPI Objective Vitals Vital Signs Date Time Temp Pulse Resp B/P (MAP) Pulse Ox O2 Delivery O2 Flow Rate FiO2 05/29/24 13:00 98.4 85 19 99/32 (54) 96 98.4 05/29/24 08:00 Nasal Cannula* 4 36 Intake/Output Intake and Output 05/29/24 07:00 Intake Total 1300 ml Output Total 300 ml Balance 1000 ml Intake Oral 0 ml IV Total 1300 ml Output Urine Total 300 ml General Appearance: Other (Lethargic) HEENT: Atraumatic, PERRLA Lungs: Clear to auscultation, Normal air movement Cardiovascular: Normal S1, Normal S2 Abdomen: Normal bowel sounds, Soft Musculoskeletal: Normal sensory function, Normal motor function Extremities: Other (Redness diaper extremity and left trunk) Neuro: Normal speech Skin: Dry, Intact Psych/Mental Status: Mental status NL, Mood NL Medications Current Medications Medications Dose Ordered Sig/Lito Route Start Time Stop Time Status Last Admin Dose Admin Nystatin 1 applic BID TOP 05/29/24 10:00 Ciprofloxacin HCl 1 drop Q6HR EACHEYE 05/29/24 00:00 05/29/24 12:00 1 DROP Ceftriaxone Sodium 50 ml @ 100 mls/hr DAILY@2100 IV 05/29/24 21:00 Atorvastatin Calcium 40 mg HS PO 05/29/24 22:00 Aspirin 81 mg DAILY PO 05/29/24 10:00 Metoprolol Tartrate 25 mg BID PO 05/29/24 10:00 Furosemide 20 mg DAILY PO 05/29/24 10:00 Apixaban 5 mg BID PO 05/29/24 10:00 Hold Diagnostic Test (Pha) 1 strip ACHS 05/29/24 07:00 05/29/24 11:32 1 STRIP Insulin Human Regular ACHS SC 05/29/24 07:00 Dextrose 50 ml UD PRN IV 05/28/24 22:30 Ondansetron HCl 4 mg Q4HP PRN IV 05/28/24 22:30 Enoxaparin Sodium 40 mg DAILY SC 05/29/24 10:00 Hold Acetaminophen 650 mg Q6HP PRN PO 05/28/24 22:30 Clindamycin Phosphate 50 ml @ 50 mls/hr Q8HR IV 05/29/24 22:00 Laboratory Results Laboratory Tests 05/29/24 06:34 Chemistry Test 05/28/24 19:04 05/29/24 06:34 Albumin 3.4 g/dL (3.2-4.8) 3.3 g/dL (3.2-4.8) Calcium Level 9.4 mg/dL (8.7-10.4) 8.9 mg/dL (8.7-10.4) Total Protein 7.3 g/dL (5.7-8.2) 6.7 g/dL (5.7-8.2) LFT Test 05/28/24 19:04 05/29/24 06:34 Alanine Aminotransferase (ALT) < 9 U/L (7-40) 10 U/L (7-40) Alkaline Phosphatase 88 U/L (46-116) 78 U/L (46-116) Aspartate Amino Transferase (AST) 8 U/L (13-40) L 29 U/L (13-40) Total Bilirubin 1.0 mg/dL (0.2-1.0) 0.7 mg/dL (0.2-1.0) Urinalysis Test 05/28/24 18:06 Urine Color Yellow (Yellow) Urine Clarity Turbid (Clear) H Urine pH 6.0 (5.0-9.0) Urine Specific [place] 1.016 (1.001-1.035) Urine Protein Trace (Negative) H Urine Ketones Negative (Negative) Urine Blood Trace /uL (Negative) H Urine Nitrite Negative (Negative) Urine Bilirubin Negative (Negative) Urine Urobilinogen 2 mg/dL (Negative) H Urine Leukocyte Esterase 3+ /uL (Negative) Urine RBC 25 /hpf (0 - 3) Urine WBC 278 /hpf (0 - 3) Urine WBC Clumps Present /hpf (None Seen) Urine Squamous Epithelial Cells Few /hpf (<5) Urine Bacteria Few /hpf (None Seen) H Urine Mucus Few (None Seen) Urine Glucose Normal mg/dL (Normal) Labs and/or images reviewed: Labs reviewed by me, Image(s) reviewed by me Assessment/Plan Assessment/Plan Impression: -metabolic encephalopathy -probable sepsis -cellulitis to left upper extremity and trunk -acute hypoxic respiratory failure -morbid obesity -complicated cystitis Plan: -check ESR, CRP, vitamin-D, TSH, ABG -O2 supplementation to keep saturation greater than 92% -change antibiotic therapy to Rocephin and clindamycin -pinzon cultures -CT of the head negative -based on ABG results, patient may require transfer to step-down ICU Critical care time spent with patient discussing and formulating plan of care: 40 minutes. This does not include time spent performing procedures. This medical document was created using an electronic medical record system with [employer] dictation system. Although this document has been carefully reviewed, there may still be some phonetic and typographical errors. These areas are purely typographical due to imperfections of the software programs, and do not reflect any compromise in the patient's medical care. Plan discussed with: Patient, Other (RN) My Orders Orders - JOHN ENRIQUE NP Procedure Category Date Status Time Order Specialty ZOE 05/29/24 In Process Mattress 13:34 * Dietary Consult CONS 05/29/24 Transmitted 13:35 Cover Wound With Foam ZOE 05/29/24 In Process Dressing 11:08 Apply Z-Guard ZOE 05/29/24 In Process 11:08 Cleanse Wound With ZOE 05/29/24 In Process Mild Soap A 13:37 Chest Ultrasound US 05/29/24 Resulted 13:50 Erythrocyte LAB 05/29/24 In Process Sedimentation Rate 13:52 Abg W/ Co-Ox RT 05/29/24 Logged 15:00 Clindamycin 300mg Iv PHA 05/29/24 In Process (Cleocin Iv) 22:00 Complete Blood Count LAB 05/30/24 Verified 04:00 Sodium Bicarb PHA 05/29/24 In Process 50meq/50ml Vial 15:15 Basic Metabolic Panel LAB 05/30/24 Verified 04:00 Clindamycin 300mg Iv PHA 05/29/24 In Process (Cleocin Iv) 15:30 Vitamin B12 LAB 05/29/24 Transmitted 15:28 Vitamin D 25-Hydroxy LAB 05/29/24 Transmitted D2 + D3 15:28 Vitamin B6 LAB 05/29/24 Transmitted 15:28 Vitamin B1 (Thiamine) LAB 05/29/24 Transmitted 15:28 Basic Metabolic Panel LAB 05/29/24 Transmitted 18:00 Date of Service: May 29, 2024 Billing Provider: JOHN ENRIQUE NP Common Visit Codes: [id number] CARE 30-74 MIN JOHN ENRIQUE NP May 29, 2024 15:35
[2024-05-29] MEDS: CLINDAMYCIN 300MG IV 50 ML IV ONE (15:45)
[2024-05-29 16:08] LABS: Erythrocyte Sedimentation Rate 30 mm/hr (0-20)
[2024-05-29] MEDS: SODIUM BICARB 50mEq/50ml Vial 50 ML in SOD CHL 0.45% 1,000 ML IV ONE (18:34)
[2024-05-29 20:04] LABS: Base Excess 2.5 mmol/L (-2.0-3.0)
[2024-05-29 21:40] LABS: Chloride 109 mmol/L (98-107); Potassium 5.1 mmol/L (3.5-5.1); Sodium 147 mmol/L (136-145)
[2024-05-29 21:41] LABS: Anion Gap 4 (5-15); Calcium 9.1 mg/dL (8.7-10.4); Carbon Dioxide 34 mmol/L (20-31)
[2024-05-29] MEDS: cefTRIAXone 1GM/50ML D5W 50 ML IV SCH (21:45)
[2024-05-29 21:46] LABS: BUN/Creatinine Ratio 24.2 (10.0-20.0); Blood Urea Nitrogen 30 mg/dL (9-23); Glucose 84 mg/dL (74-106)
[2024-05-29] MEDS: ATORVASTATIN 20 MG TAB PO SCH (21:46)
[2024-05-29] MEDS: CLINDAMYCIN 300MG IV 50 ML IV SCH (21:46)
[2024-05-29] MEDS ORDERED: AZITHROMYCIN 500MG/ 250ML 250 ML IV SCH (22:00)
[2024-05-29 23:22] LABS: Base Excess 5.3 mmol/L (-2.0-3.0)
[2024-05-30] VITALS (11 sets, daily range): BP systolic 96–117; BP diastolic 32–59; PULSE 68–97; RESP 18–19; TEMP 97.3–99; O2SAT 94–98
[2024-05-30 07:38] LABS: Chloride 108 mmol/L (98-107); Potassium 4.5 mmol/L (3.5-5.1); Sodium 146 mmol/L (136-145)
[2024-05-30 07:39] LABS: Anion Gap 8 (5-15); Calcium 9.1 mg/dL (8.7-10.4); Carbon Dioxide 30 mmol/L (20-31)
[2024-05-30 07:44] LABS: BUN/Creatinine Ratio 30.8 (10.0-20.0); Blood Urea Nitrogen 33 mg/dL (9-23); Glucose 104 mg/dL (74-106)
[2024-05-30 07:57] LABS: Basophils # (auto) 0 10 ^3/uL (0-0.2); Basophils % (auto) 0.4 % (0.0-2.0); Eosinophils # (auto) 0.2 10 ^3/uL (0-0.8); Eosinophils % (auto) 1.7 % (0.0-7.0); Hemoglobin 12.4 g/dL (13.5-17.5); Lymphocytes % (auto) 10.9 % (10.0-50.0); Mean Corpuscular Hemoglobin 30.1 pg (28.0-32.0); Mean Corpuscular Hgb Conc. 32.5 g/dL (32.0-36.0); Mean Corpuscular Volume 92.5 fL (80.0-100.0); Monocytes # (auto) 0.6 10 ^3/uL (0-1.3); Monocytes % (auto) 6.3 % (0.0-12.0); Neutrophils # (auto) 7.6 10 ^3/uL (1.6-8.6); Neutrophils % (auto) 80.7 % (37.0-80.0); Platelet Count (auto) 214 10^3/uL (140-450); Red Blood Cells 4.11 10^6/uL (4.5-5.90); Red Cell Distribution Width 16.4 % (11.8-14.3); White Blood Cell 9.4 10^3/uL (4.4-10.8)
--- NOTE | 2024-05-30 13:59 | DVHPN2 ---
Subjective Patient encephalopathic Reviewed: Care Plan, H&P, Labs, Medications Changes from previous H/P or p: No Changes General: Per HPI Objective Vitals Vital Signs Date Time Temp Pulse Resp B/P (MAP) Pulse Ox O2 Delivery O2 Flow Rate FiO2 05/30/24 09:57 99/35 05/30/24 08:00 96 Bi-Pap+ 28 28 05/30/24 05:00 97.3 85 18 97.3 05/29/24 20:00 4 Intake/Output Intake and Output 05/30/24 07:00 Intake Total 150 ml Output Total 950 ml Balance -800 ml Intake Oral 0 ml IV Total 150 ml Output Urine Total 950 ml # Bowel Movements 1 General Appearance: Alert, Cooperative, mild distress, Other (Oriented x2) HEENT: Atraumatic, PERRLA Lungs: Clear to auscultation, Normal air movement Cardiovascular: Normal S1, Normal S2 Abdomen: Normal bowel sounds, Soft Musculoskeletal: Normal sensory function, Normal motor function Extremities: Other (Redness diaper extremity and left trunk) Neuro: Normal speech Skin: Dry, Intact Psych/Mental Status: Mental status NL, Mood NL Medications Current Medications Medications Dose Ordered Sig/Lito Route Start Time Stop Time Status Last Admin Dose Admin Nystatin 1 applic BID TOP 05/29/24 10:00 05/30/24 09:56 1 APPLIC Ciprofloxacin HCl 1 drop Q6HR EACHEYE 05/29/24 00:00 05/30/24 12:16 1 DROP Ceftriaxone Sodium 50 ml @ 100 mls/hr DAILY@2100 IV 05/29/24 21:00 05/29/24 21:45 100 MLS/HR Atorvastatin Calcium 40 mg HS PO 05/29/24 22:00 05/29/24 21:46 40 MG Aspirin 81 mg DAILY PO 05/29/24 10:00 Metoprolol Tartrate 25 mg BID PO 05/29/24 10:00 Furosemide 20 mg DAILY PO 05/29/24 10:00 Apixaban 5 mg BID PO 05/29/24 10:00 Hold Diagnostic Test (Pha) 1 strip ACHS 05/29/24 07:00 05/30/24 11:30 1 STRIP Insulin Human Regular ACHS SC 05/29/24 07:00 Dextrose 50 ml UD PRN IV 05/28/24 22:30 Ondansetron HCl 4 mg Q4HP PRN IV 05/28/24 22:30 Enoxaparin Sodium 40 mg DAILY SC 05/29/24 10:00 Hold Acetaminophen 650 mg Q6HP PRN PO 05/28/24 22:30 Clindamycin Phosphate 50 ml @ 50 mls/hr Q8HR IV 05/29/24 22:00 05/30/24 05:16 50 MLS/HR Laboratory Results Laboratory Tests 05/30/24 06:33 Chemistry Test 05/29/24 21:18 05/30/24 06:33 Calcium Level 9.1 mg/dL (8.7-10.4) 9.1 mg/dL (8.7-10.4) Urinalysis Test 05/28/24 18:06 Urine Color Yellow (Yellow) Urine Clarity Turbid (Clear) H Urine pH 6.0 (5.0-9.0) Urine Specific [place] 1.016 (1.001-1.035) Urine Protein Trace (Negative) H Urine Ketones Negative (Negative) Urine Blood Trace /uL (Negative) H Urine Nitrite Negative (Negative) Urine Bilirubin Negative (Negative) Urine Urobilinogen 2 mg/dL (Negative) H Urine Leukocyte Esterase 3+ /uL (Negative) Urine RBC 25 /hpf (0 - 3) Urine WBC 278 /hpf (0 - 3) Urine WBC Clumps Present /hpf (None Seen) Urine Squamous Epithelial Cells Few /hpf (<5) Urine Bacteria Few /hpf (None Seen) H Urine Mucus Few (None Seen) Urine Glucose Normal mg/dL (Normal) Blood Gas Results Test 05/29/24 19:52 05/29/24 23:13 Arterial Blood pH 7.190 (7.350-7.450) 7.332 (7.350-7.450) FiO2 % 36.0 28.0 Microbiology Microbiology Date/Time Source Procedure Growth Status 05/29/24 03:03 Chest Gram Stain - Final Resulted 05/29/24 03:03 Chest Wound Culture - Preliminary Resulted 05/28/24 23:30 Blood Blood Culture - Preliminary NO GROWTH AFTER 24 HOURS OF INCUBATION. Resulted Labs and/or images reviewed: Labs reviewed by me, Image(s) reviewed by me Assessment/Plan Assessment/Plan Impression: -metabolic encephalopathy -probable sepsis -cellulitis to left upper extremity and trunk -acute hypoxic respiratory failure -morbid obesity -complicated cystitis -acute hypercarbic respiratory failure with CO2 narcosis Plan: Events: Patient ABG revealed severe respiratory alkalosis. Patient was placed on BiPAP with improvement with the patient's mentation. Patient also had repeat ABG with improved hypercarbic failure. -BiPAP p.r.n. -O2 supplementation to keep saturation greater than 92% -change antibiotic therapy to Rocephin and clindamycin -pinzon cultures -repeat labs in a.m. -PUD, DVT prophylaxis Total time spent with patient discussing and formulating plan of care: 35 minutes. This medical document was created using an electronic medical record system with [employer] dictation system. Although this document has been carefully reviewed, there may still be some phonetic and typographical errors. These areas are purely typographical due to imperfections of the software programs, and do not reflect any compromise in the patient's medical care. Plan discussed with: Patient, Other (RN) My Orders Orders - JOHN ENRIQUE NP Procedure Category Date Status Time Clindamycin 300mg Iv PHA 05/29/24 In Process (Cleocin Iv) 22:00 Vitamin D 25-Hydroxy LAB 05/29/24 In Process D2 + D3 15:28 Vitamin B6 LAB 05/29/24 In Process 15:28 Vitamin B1 (Thiamine) LAB 05/29/24 In Process 15:28 Abg W/ Co-Ox RT 05/29/24 Logged 18:52 Date of Service: May 30, 2024 Billing Provider: JOHN ENRIQUE NP Common Visit Codes: [id number] INP/OBS CARE(HIGH) JOHN ENRIQUE NP May 30, 2024 13:59
[2024-05-30] MEDS: ENOXAPARIN SOD 40 MG/0.4 ML SYRINGE SC ONE (17:34)
[2024-05-31 01:00] VITALS: BP 114/48; PULSE 90; RESP 19; TEMP 98.1; O2SAT 95
[2024-05-31 05:00] VITALS: BP 113/44; PULSE 99; RESP 19; TEMP 97.7; O2SAT 93
[2024-05-31 07:04] LABS: Chloride 109 mmol/L (98-107); Potassium 4.4 mmol/L (3.5-5.1); Sodium 147 mmol/L (136-145)
[2024-05-31 07:05] LABS: Anion Gap 5 (5-15); Calcium 8.9 mg/dL (8.7-10.4); Carbon Dioxide 33 mmol/L (20-31)
[2024-05-31 07:11] LABS: BUN/Creatinine Ratio 38.8 (10.0-20.0); Blood Urea Nitrogen 31 mg/dL (9-23); Glucose 93 mg/dL (74-106)
[2024-05-31 07:16] LABS: Basophils # (auto) 0 10 ^3/uL (0-0.2); Basophils % (auto) 0.6 % (0.0-2.0); Eosinophils # (auto) 0.3 10 ^3/uL (0-0.8); Eosinophils % (auto) 3.7 % (0.0-7.0); Hematocrit 34.5 % (41.0-53.0); Hemoglobin 11.3 g/dL (13.5-17.5); Lymphocytes % (auto) 13.3 % (10.0-50.0); Mean Corpuscular Hemoglobin 30.4 pg (28.0-32.0); Mean Corpuscular Hgb Conc. 32.9 g/dL (32.0-36.0); Mean Corpuscular Volume 92.4 fL (80.0-100.0); Monocytes # (auto) 0.6 10 ^3/uL (0-1.3); Monocytes % (auto) 7.5 % (0.0-12.0); Neutrophils # (auto) 5.5 10 ^3/uL (1.6-8.6); Neutrophils % (auto) 74.9 % (37.0-80.0); Nucleated Red Blood Cells % 0.1 %; Platelet Count (auto) 191 10^3/uL (140-450); Red Blood Cells 3.73 10^6/uL (4.5-5.90); Red Cell Distribution Width 16.2 % (11.8-14.3); White Blood Cell 7.3 10^3/uL (4.4-10.8)
[2024-05-31 09:00] VITALS: BP 116/42; PULSE 93; RESP 19; TEMP 98.4; O2SAT 100
[2024-05-31] MEDS: ENOXAPARIN SOD 40 MG/0.4 ML SYRINGE SC SCH (09:57)
--- NOTE | 2024-05-31 14:29 | DVHDS2 ---
Discharge Summary Date of Admission May 28, 2024 at 22:29 Date of Discharge: May 31, 2024 Admitting Diagnosis Metabolic encephalopathy Labs/Diagnostic Data: Laboratory Results Test 05/31/24 11:20 05/31/24 06:18 05/29/24 23:13 05/29/24 19:52 POC Glucose 90 mg/dl (70-106) White Blood Count 7.3 10^3/uL (4.4-10.8) Red Blood Count 3.73 10^6/uL (4.5-5.90) Hemoglobin 11.3 g/dL (13.5-17.5) Hematocrit 34.5 % (41.0-53.0) Mean Corpuscular Volume 92.4 fL (80.0-100.0) Mean Corpuscular Hemoglobin 30.4 pg (28.0-32.0) Mean Corpuscular Hemoglobin Concent 32.9 g/dL (32.0-36.0) Red Cell Distribution Width 16.2 % (11.8-14.3) Platelet Count 191 10^3/uL (140-450) Mean Platelet Volume 7.6 fL (6.9-10.8) Neutrophils (%) (Auto) 74.9 % (37.0-80.0) Lymphocytes (%) (Auto) 13.3 % (10.0-50.0) Monocytes (%) (Auto) 7.5 % (0.0-12.0) Eosinophils (%) (Auto) 3.7 % (0.0-7.0) Basophils (%) (Auto) 0.6 % (0.0-2.0) Neutrophils # (Auto) 5.5 10 ^3/uL (1.6-8.6) Lymphocytes # (Auto) 1.0 10 ^3/uL (0.4-5.4) Monocytes # (Auto) 0.6 10 ^3/uL (0-1.3) Eosinophils # (Auto) 0.3 10 ^3/uL (0-0.8) Basophils # (Auto) 0 10 ^3/uL (0-0.2) Nucleated Red Blood Cells 0.1 % Sodium Level 147 mmol/L (136-145) Potassium Level 4.4 mmol/L (3.5-5.1) Chloride Level 109 mmol/L (98-107) Carbon Dioxide Level 33 mmol/L (20-31) Anion Gap 5 (5-15) Blood Urea Nitrogen 31 mg/dL (9-23) Creatinine 0.80 mg/dL (0.700-1.30) Glomerular Filtration Rate Calc 96 mL/min (>90) BUN/Creatinine Ratio 38.8 (10.0-20.0) Serum Glucose 93 mg/dL (74-106) Calcium Level 8.9 mg/dL (8.7-10.4) Blood Gas Specimen Type Arterial Blood Gas Sample Site Left radial Blood Gas Patient Temperature 37.0 Arterial Blood Date Drawn Arterial Blood pH 7.332 (7.350-7.450) Arterial Blood Partial Pressure CO2 63.8 mmHg (35.0-48.0) Arterial Blood Partial Pressure O2 73.0 mmHg (83.0-108.0) Arterial Blood HCO3 33.0 mmol/L (21.0-28.0) Arterial Blood Oxygen Saturation 95.4 % (94.0-98.0) Arterial Blood Base Excess 5.3 mmol/L (-2.0-3.0) Arterial Blood Oxyhemoglobin 93.1 % (94.0-98.0) Arterial Blood Carboxyhemoglobin 2.0 % (0.5-1.5) Arterial Blood Methemoglobin 0.4 % (0.0-1.5) Eric Test Yes Blood Gas Total Hemoglobin 12.80 g/dL (13.5-17.5) Blood Gas Modality Mask - bipap FiO2 % 28.0 Blood Gas EPAP 5 Blood Gas IPAP 20 Blood Gas Critical Value Read Back yes Blood Gas Notified Whom bernarda Bocanegra md Blood Gas Notified Time [id number] Blood Gas Notified By pradeep hudson, Blood Gas Liter Flow 4.00 Test 05/29/24 19:50 05/29/24 19:09 05/29/24 14:30 05/29/24 06:34 Vitamin B12 Level 543 pg/mL (211-911) Erythrocyte Sedimentation Rate 30 mm/hr (0-20) C-Reactive Protein High Sensitivity 1.14 mg/dL (<1.0) Total Bilirubin 0.7 mg/dL (0.2-1.0) Aspartate Amino Transferase (AST) 29 U/L (13-40) Alanine Aminotransferase (ALT) 10 U/L (7-40) Alkaline Phosphatase 78 U/L (46-116) Total Protein 6.7 g/dL (5.7-8.2) Albumin 3.3 g/dL (3.2-4.8) Test 05/28/24 19:04 05/28/24 18:06 Lactic Acid Level 1.3 mmol/L (0.4-2.0) Plasma/Serum Blood Alcohol < 3.0 mg/dL (<10) Urine Color Yellow (Yellow) Urine Clarity Turbid (Clear) Urine pH 6.0 (5.0-9.0) Urine Specific [place] 1.016 (1.001-1.035) Urine Protein Trace (Negative) Urine Ketones Negative (Negative) Urine Blood Trace /uL (Negative) Urine Nitrite Negative (Negative) Urine Bilirubin Negative (Negative) Urine Urobilinogen 2 mg/dL (Negative) Urine Leukocyte Esterase 3+ /uL (Negative) Urine RBC 25 /hpf (0 - 3) Urine WBC 278 /hpf (0 - 3) Urine WBC Clumps Present /hpf (None Seen) Urine Squamous Epithelial Cells Few /hpf (<5) Urine Bacteria Few /hpf (None Seen) Urine Mucus Few (None Seen) Urine Glucose Normal mg/dL (Normal) Urine Opiates Screen Neg (NEGATIVE) Urine Fentanyl Screen Neg (NEGATIVE) Urine Barbiturates Screen Neg (NEGATIVE) Urine Phencyclidine Screen Neg (NEGATIVE) Urine Amphetamines Screen Neg (NEGATIVE) Urine Benzodiazepines Screen Neg (NEGATIVE) Urine Cocaine Screen Neg (NEGATIVE) Urine Cannabinoids Screen Neg (NEGATIVE) Other Laboratory Tests 05/31/24 06:18 Brief Hx & Hospital Course: History of Present Illness 69-year-old male presents for evaluation of altered mental status. Patient is a resident at a assisted living facility. He was noted to be progressively more confused over the past two days. Currently he is lethargic oriented x2. Reports mild shortness for breath. No blurred vision or unilateral weakness. No chest pain. Course of hospitalization: Initial assessment of the patient reveals that he was extremely lethargic to verbal and painful stimuli. Patient had ABG performed which revealed respiratory acidosis with CO2 89.6. Patient was placed on BiPAP with patient becoming more alert and requesting mask to be taken off. Patient has had no further signs of lethargy in his alert and oriented. Patient was noted to have severe redness to left chest, armpit and arm. Patient was placed on antibiotic therapy including Levaquin and clindamycin as well as topical nystatin powder. Redness has improved. Leukocytosis has improved. Patient was requesting to be discharged back to his facility. He will be continued on antibiotic therapy with clindamycin 300 mg p.o. 3 times a day x5 days. He will also be placed on Florastor 250 mg p.o. daily as well as continuing with nystatin topical powder. The patient was agreeable with discharge plan. All questions answered. Physical examination General: Alert and Oriented x3. No acute distress. Well-nourished. Eyes: EOMI. Anicteric. HENT: Moist mucous membranes. Lungs: Clear to auscultation bilaterally. No accessory muscle use. Cardiovascular: Regular rate and rhythm. No murmur. No JVD. Abdomen: Soft, non-tender and non-distended. No palpable masses. Extremities: No edema. Non-tender. Skin: No rashes or lesions. Warm. Neurologic: No focal neurological deficits. CN II-XII grossly intact, but not individually tested. Psychiatric: Cooperative. Appropriate mood and affect. Total time spent with patient discussing and formulating plan of care: 35 minutes. This medical document was created using an electronic medical record system with [employer] dictation system. Although this document has been carefully reviewed, there may still be some phonetic and typographical errors. These areas are purely typographical due to imperfections of the software programs, and do not reflect any compromise in the patient's medical care. Condition at Discharge: Guarded Final Diagnosis/Problems List Metabolic encephalopathy secondary to sepsis Secondary Diagnosis: -metabolic encephalopathy -community-acquired pneumonia ruled out -cellulitis to left upper extremity and trunk -acute hypoxic respiratory failure -morbid obesity -complicated cystitis -acute hypercarbic respiratory failure with CO2 narcosis Discharge Disposition: Alf Facility Discharge Instruct/Medications Diet: Cardiac 2g Na,low cholest Activity: No Restrictions, As Tolerated Medications: Clindamycin 300 mg p.o. q.8 hours x5 days Florastor 250 mg, one tablet daily Nystatin powder to left chest and torso Continue all previous home medications 36 Discharge Statement: "Patient was advised to return to the ER or call 911 if any headaches, dizziness, shortness of breath, chest pain, abdominal pain, bleeding, fevers, or worsening of medical condition. Patient was counseled about treatment plan, medications, possible side effects, patientverbalized understanding. All questions were answered to the best of my ability. This discharge took greater then 30 minutes in planning, reviewing documentation, counseling the patient, and discussing with other team members." ASSESSMENT ASSESSMENT Assessment Metabolic encephalopathy secondary to sepsis Date of Service: May 31, 2024 Billing Provider: JOHN ENRIQUE NP Common Visit Codes: [id number] DISCH DAY >30min JOHN ENRIQUE NP May 31, 2024 14:29
[2024-05-31 16:57] VITALS: BP 112/64; PULSE 95; RESP 18; TEMP 98.1; O2SAT 98
[2024-06-01] MEDS ORDERED: FLORASTOR (S. BOULARDII) 250 MG CAP PO SCH (10:00)
[2024-06-03 18:06] LABS: Vitamin B1, Whole Blood 229.1 nmol/L (66.5-200.0)
[2024-06-04 09:06] LABS: Vitamin B6 4.6 ug/L (3.4-65.2)
== END 2024-05-31 18:30 | disposition hospice, home (50) | DRG 871 ==
LOC: EDBD 17:28 → ER 17:28 → OVERFLOW 22:29 → WEST WING 05-29 03:12
PROVIDERS: ADMIT Nurse Practitioner; ATTEND Nurse Practitioner Acute Care
PROC: 5A09357 Assistance with Respiratory Ventilation, Less than 24 Consecutive Hours, Continuous Positive Airway Pressure (ICD-10-PCS; principal; 2024-05-29)
DX: A41.9 Sepsis, unspecified organism (principal); G93.41 Metabolic encephalopathy; J96.01 Acute respiratory failure with hypoxia; J96.02 Acute respiratory failure with hypercapnia; L03.114 Cellulitis of left upper limb; E87.29 Other acidosis; Z68.43 Body mass index [BMI] 50.0-59.9, adult; E66.01 Morbid (severe) obesity due to excess calories; E11.9 Type 2 diabetes mellitus without complications; I11.0 Hypertensive heart disease with heart failure; I50.9 Heart failure, unspecified; N30.90 Cystitis, unspecified without hematuria; H10.89 Other conjunctivitis
CPT/HCPCS: 36415; 36600; 70450; 71045; 76604; 80048; 80053; 80307; 80320; 81001; 82306; 82607; 82805; 82962; 83605; 84207; 84425; 85025; 85652; 86141; 87040; 87077; 87186; 87205; 93005; 94660; 99291; G0378; J3490

== ENCOUNTER 2024-06-28 22:50 | Inpatient (IN) | payer OTHER, MEDICARE, MEDICAID ==
[~2024-06-28] VITALS: Ht 177.8 cm; Wt 160.1 kg
--- NOTE | 2024-06-28 23:17 | ED.PDOC ---
History of Present Illness HPI Comments 69-year-old male who came to ER via EMS for generalized weakness. Per EMS, was picked up at an assisted care facility, where caregivers noted that patient has been generally weak all day, complaining of lower abdominal pain with notable turbid urine coming out of his catheter. Patient is morbidly obese, bedbound, have history of hypertension, diabetes, dyslipidemia, congestive heart failure, AFib, CVA and recurrent urinary tract infections Chief Complaint: General Weakness Time Seen by MD: 23:17 Primary Care Provider: JAMILAH Reviewed Notes: Nurses Notes Allergies: Uncoded Allergies: orang peel (Adverse Reaction, Intermediate, rash, lip breaks, 06/29/24) Home Meds Active Scripts Cefpodoxime Proxetil (Cefpodoxime Proxetil) 200 Mg Tab, 1 TAB PO BID for 21 Days, #42 TAB Prov:JULIANO GOMEZ RESIDENT 02/13/24 Carvedilol (COREG) 3.125 Mg Tab, 3.125 MG PO Q12HR for 30 Days, #60 TAB Prov:JULIANO GOMEZ RESIDENT 02/13/24 Atorvastatin Calcium (ATORVASTATIN CALCIUM) 20 Mg Tab, 40 MG PO HS for 30 Days, #60 TAB 2 Refills Prov:JULIANO GOMEZ RESIDENT 02/13/24 Aspirin (Aspirin Low Dose) 81 Mg Tab, 81 MG PO DAILY for 30 Days, #30 TAB 2 Refills Prov:JULIANO GOMEZ RESIDENT 02/13/24 Information Source: Patient, Emergency Med Personnel Mode of Arrival: EMS Severity: Moderate Timing: Hours Duration: Since onset Prehospital treatment: None Past Medical History PAST MEDICAL HISTORY: AFIB, CHF, CVA, DM, High Lipids, HTN, UTI'S Surgical History: Denies all surgeries Family History Family History: Reviewed,noncontributory to illness Social History Smoker: Non-Smoker Alcohol: Denies ETOH Use Drugs: Denies Drug Use Lives In: Assisted Care Constitutional: reports: malaise, weakness; denies: chills, diaphoresis, fatigue, fever, sweats, others EENTM: denies: blurred vision, double vision, ear bleeding, ear discharge, ear drainage, ear pain, ear ringing, eye pain, eye redness, hearing loss, mouth pain, mouth swelling, nasal discharge, nose bleeding, nose congestion, nose belkis n, photophobia, tearing, throat pain, throat swelling, voice changes, others Respiratory: denies: cough, hemoptysis, orthopnea, SOB at rest, shortness of breath, SOB with excertion, stridor, wheezing, others Cardiovascular: denies: chest pain, dizzy spells, diaphoresis, Dyspnea on exertion, edema, irregular heart beat, left arm pain, lightheadedness, palpitations, PND, syncope, others Gastrointestinal: reports: abdominal pain; denies: abdomen distended, blood streaked bowels, constipated, diarrhea, dysphagia, difficulty swallowing, hematemesis, melena, nausea, poor appetite, poor fluid intake, rectal bleeding, rectal pain, vomiting, others Genitourinary: denies: burning, dysuria, flank pain, frequency, hematuria, incontinence, penile discharge, penile sore, pain, testicle pain, testicle swelling, urgency, others Neurological: denies: dizziness, fainting, headache, left sided numbness, left sided weakness, numbness, paresthesia, pre-existing deficit, right sided numbness, right sided weakness, seizure, speech problems, tingling, tremors, weakness, others Musculoskeletal: denies: back pain, gout, joint pain, joint swelling, muscle pain, muscle stiffness, neck pain, others Integumetry: denies: bruises, change in color, change in hair/nails, dryness, laceration, lesions, lumps, rash, wounds, others Allergic/Immunocompromised: denies: Difficulty Healing, Frequent Infections, Hives, Itching, others Hematologic/Lymphatic: denies: anemia, blood clots, easy bleeding, easy bruising, swollen glands, others Endocrine: denies: excessive hunger, excessive sweating, excessive thirst, excessive urination, flushing, intolerance to cold, intolerance to heat, unexplained weight gain, unexplained weight loss, others Psychiatric: denies: anxiety, bipolar disorder, depression, hopeless, panic disorder, schizophrenia, sleepless, suicidal, others Physical Exam General Appearance: Mild Distress, Obese HEENT: Normal ENT Inspection, Pharynx Normal, TMs Normal Neck: Full Range of Motion, Non-Tender, Normal, Normal Inspection Respiratory: Chest Non-Tender, Lungs Clear, No Accessory Muscle Use, No Respiratory Distress, Normal Breath Sounds Cardiovascular: No Edema, No JVD, No Murmur, No Gallop, Normal Peripheral Pulses, Regular Rate/Rhythm Breast Exam: Deferred Gastrointestinal: No Organomegaly, Non Tender, No Pulsatile Mass, Normal Bowel Sounds, Soft Genitalia: Deferred Pelvic: Deferred Rectal: Deferred Extremities: No calf tenderness, Normal capillary refill, Normal inspection, Normal range of motion, Non-tender, No pedal edema Musculoskeletal : Apperance: Normal Neurologic: Alert, blade balancer II-XII nml as Tested, No Motor Deficits, Normal Affect, Normal Mood, No Sensory Deficits Cerebellar Function: Normal Reflexes: Normal Skin: Dry, Normal Color, Warm Lymphatic: No Adenopathy Was a procedure done? Was a procedure done?: No EKG EKG : Pulse Rate (adult): 132 Cardiac Rhythm: Afib Differential Dx Considerations may include: Anemia, electrolyte imbalance, congestive heart failure, UTI, sepsis, CVA, AFib X-Ray, Labs, Meds, VS Vital Signs Date Time Temp Pulse Resp B/P (MAP) Pulse Ox O2 Delivery O2 Flow Rate FiO2 06/29/24 02:35 79/26 06/29/24 02:30 74/19 06/29/24 02:25 85/31 06/29/24 02:20 72/25 06/29/24 02:00 99.8 104 24 71/38 (49) 90 99.8 06/29/24 01:00 101.6 06/29/24 00:16 101.6 120 36 102/52 (69) 98 101.6 06/28/24 23:37 99.0 113 33 93/45 (61) 94 99.0 06/28/24 23:17 132 06/28/24 22:59 99.0 115 26 120/65 (83) 85 06/28/24 22:54 132 Lab Test 06/29/24 00:22 06/29/24 00:20 06/29/24 00:15 06/28/24 23:32 Range/Units Influenza Type A Antigen Negative Negative Influenza Type B Antigen Negative Negative SARS-CoV-2 Antigen (Rapid) Negative NEGATIVE Troponin I High Sensitivity 5 4 </=54 ng/L Urine Color Light-orange Yellow Urine Clarity Ex.turbid Clear Urine pH 8.5 5.0-9.0 Urine Specific [place] 1.019 1.001-1.035 Urine Protein 3+ H Negative Urine Ketones Negative Negative Urine Blood Trace H Negative /uL Urine Nitrite Negative Negative Urine Bilirubin Negative Negative Urine Urobilinogen Normal Negative mg/dL Urine Leukocyte Esterase 3+ Negative /uL Urine RBC 107 0 - 3 /hpf Urine WBC 70 0 - 3 /hpf Urine WBC Clumps Present None Seen /hpf Urine Squamous Epithelial Cells None seen <5 /hpf Urine Calcium Oxalate Crystals Many None Seen Urine Triple Phosphate Crystals Mod None Seen /hpf Urine Bacteria Many H None Seen /hpf Urine Mucus Few None Seen Urine Glucose Normal Normal mg/dL White Blood Count 16.6 H 4.4-10.8 10^3/uL Red Blood Count 4.48 L 4.5-5.90 10^6/uL Hemoglobin 13.4 L 13.5-17.5 g/dL Hematocrit 41.1 41.0-53.0 % Mean Corpuscular Volume 91.8 80.0-100.0 fL Mean Corpuscular Hemoglobin 29.8 28.0-32.0 pg Mean Corpuscular Hemoglobin Concent 32.5 32.0-36.0 g/dL Red Cell Distribution Width 15.4 H 11.8-14.3 % Platelet Count 247 140-450 10^3/uL Mean Platelet Volume 7.7 6.9-10.8 fL Neutrophils (%) (Auto) 37.0-80.0 % Lymphocytes (%) (Auto) 10.0-50.0 % Monocytes (%) (Auto) 0.0-12.0 % Basophils (%) (Auto) 0.0-2.0 % Neutrophils # (Auto) 1.6-8.6 10 ^3/uL Lymphocytes # (Auto) 0.4-5.4 10 ^3/uL Monocytes # (Auto) 0-1.3 10 ^3/uL Differential Total Cells Counted 100.0 100 Neutrophils % (Manual) 94 H 37.0-80.0 Band Neutrophils % (Manual) 3 Lymphocytes % (Manual) 2 L 10.0-50.0 Monocytes % (Manual) 0 0-12 Eosinophils % (Manual) 1 0-7 Basophils % (Manual) 0 0.0-2.0 Metamyelocytes % (manual) 0 Myelocytes % (Manual) 0 Promyelocytes % (Manual) 0 Blast Cells % (Manual) 0 Reactive Lymphocytes 0 Platelet Estimate Adequate Prothrombin Time 12.7 H 9.3-11.8 sec Prothrombin Time INR 1.22 H 0.9-1.15 Activated Partial Thromboplast Time 30.8 24.5-34.5 SEC Sodium Level 142 136-145 mmol/L Potassium Level 4.7 3.5-5.1 mmol/L Chloride Level 107 98-107 mmol/L Carbon Dioxide Level 26 20-31 mmol/L Anion Gap 9 5-15 Blood Urea Nitrogen 22 9-23 mg/dL Creatinine 0.87 0.700-1.30 mg/dL Glomerular Filtration Rate Calc 93 >90 mL/min BUN/Creatinine Ratio 25.3 H 10.0-20.0 Serum Glucose 116 H 74-106 mg/dL Lactic Acid Level 1.8 0.4-2.0 mmol/L Calcium Level 9.5 8.7-10.4 mg/dL Magnesium Level 1.6 1.6-2.6 mg/dL Total Bilirubin 1.6 H 0.2-1.0 mg/dL Aspartate Amino Transferase (AST) 12 L 13-40 U/L Alanine Aminotransferase (ALT) < 9 7-40 U/L Alkaline Phosphatase 96 46-116 U/L B-Type Natriuretic Peptide 103.46 0-100 pg/mL Total Protein 6.8 5.7-8.2 g/dL Albumin 3.3 3.2-4.8 g/dL Current Medications Medications (Trade) Dose Ordered Sig/Lito Route Start Time Stop Time Status Last Admin Piperacillin Sod/ Tazobactam Sod 100 ml @ 100 mls/hr ONCE ONCE IV 06/28/24 23:15 06/29/24 00:14 DC 06/29/24 00:06 Acetaminophen (Tylenol Tablet Or Capsule) 1,000 mg ONCE ONCE PO 06/29/24 00:45 06/29/24 00:46 DC 06/29/24 01:00 Norepinephrine Bitartrate 250 ml @ 3.75 mls/hr Q24H IV 06/29/24 02:15 06/29/24 02:20 CHEST RADIOGRAPH Indication: weakness Technique: Single frontal view of the chest was obtained Comparison: XY CHEST PORTABLE on DOS: 05/28/24, XY CHEST PORTABLE on DOS: 02/15/24, XY CHEST PORTABLE on DOS: 02/14/24 Findings/ IMPRESSION: Mild cardiomegaly. Left basilar opacification which may represent a small pleural effusion or atelectasis. Elevated left hemidiaphragm limits evaluation. Patchy right lower lung zone opacification which may be related to chronic interstitial lung disease versus developing airspace disease. First troponin 2nd troponin is five. EKG reveals sinus tach at 1:32 a.m.. There are no ischemic changes. BNP is 103. WBC is 16.6. Lactic acid is 1.8 CMP is essentially normal. Patient was placed on Zosyn and observe is no sepsis protocol he also needed Levophed for hemodynamic support. Time of 1ST Reevaluation: 23:10 Reevaluation 1ST: Unchanged Patient Education/Counseling: Diagnosis, Treatment Family Education/Counseling: No Family Present Departure 1 Departure Time of Disposition: 02:58 Impression: Primary Impression: Sepsis Qualified Codes: A41.9 - Sepsis, unspecified organism Additional Impressions: Pneumonia Qualified Codes: J18.9 - Pneumonia, unspecified organism Pleural effusion Urinary tract infection Qualified Codes: T83.511A - Infection and inflammatory reaction due to indwelling urethral catheter, initial encounter; N39.0 - Urinary tract infection, site not specified Disposition: 09 ADMITTED INPATIENT Admit to: Tele Condition: Guarded Critical Care Note Critical Care Time?: Yes (35 min-critical care time only) Stability Stability form required: No Heart Score Heart Score: Heart Score Response (Comments) Value History N/A 0 EKG N/A 0 Age N/A 0 Risk Factors N/A 0 Troponin N/A 0 Total 0 I personally scribed for ALBARO BAY MD ([email or web address]) on 06/28/24 at 23:17. Electronically submitted by Sukhjinder Mccarthy ([email or web address]). I personally scribed for ALBARO BAY MD ([email or web address]) on 06/28/24 at 23:54. Electronically submitted by Sukhjinder Mccarthy ([email or web address]). ALBARO BAY MD Jun 28, 2024 23:17
[2024-06-28 23:37] VITALS: PULSE 113; RESP 33; O2SAT 88
--- NOTE | 2024-06-28 23:43 | DVH ---
CHEST RADIOGRAPH Indication: weakness Technique: Single frontal view of the chest was obtained Comparison: XY CHEST PORTABLE on DOS: 05/28/24, XY CHEST PORTABLE on DOS: 02/15/24, XY CHEST PORTABLE o n DOS: 02/14/24 Findings/ IMPRESSION: Mild cardiomegaly. Left basilar opacification which may represent a small pleural effusion or atelect asis. Elevated left hemidiaphragm limits evaluation. Patchy right lower lung zone opacification which may be related to chronic interstitial lung disease versus developing airspace disease.
[2024-06-29] MEDS: PIPERACILLIN-TAZOB 3.375GM 100 ML IV ONE (00:06)
[2024-06-29 00:11] LABS: Hematocrit 41.1 % (41.0-53.0); Hemoglobin 13.4 g/dL (13.5-17.5); Mean Corpuscular Hemoglobin 29.8 pg (28.0-32.0); Mean Corpuscular Hgb Conc. 32.5 g/dL (32.0-36.0); Mean Corpuscular Volume 91.8 fL (80.0-100.0); Platelet Count (auto) 247 10^3/uL (140-450); Red Blood Cells 4.48 10^6/uL (4.5-5.90); Red Cell Distribution Width 15.4 % (11.8-14.3); White Blood Cell 16.6 10^3/uL (4.4-10.8)
[2024-06-29 00:19] LABS: Basophils % (manual) 0 (0.0-2.0); Blast Cells 0; Metamyelocytes % 0; Monocytes % (manual) 0 (0-12); Myelocytes % 0; Promyelocytes % 0; Reactive Lymphocytes 0
[2024-06-29 00:28] LABS: INR 1.22 (0.9-1.15); Partial Thromboplastin Time 30.8 SEC (24.5-34.5); Prothrombin Time 12.7 sec (9.3-11.8)
[2024-06-29 00:29] LABS: Albumin 3.3 g/dL (3.2-4.8); Alkaline Phosphatase 96 U/L (46-116); Anion Gap 9 (5-15); BUN/Creatinine Ratio 25.3 (10.0-20.0); Blood Urea Nitrogen 22 mg/dL (9-23); Calcium 9.5 mg/dL (8.7-10.4); Carbon Dioxide 26 mmol/L (20-31); Chloride 107 mmol/L (98-107); Potassium 4.7 mmol/L (3.5-5.1); Sodium 142 mmol/L (136-145); Total Protein 6.8 g/dL (5.7-8.2)
[2024-06-29 00:33] LABS: Alanine Aminotransferase < 9 U/L (7-40); Aspartate Aminotransferase 12 U/L (13-40); Bilirubin, Total 1.6 mg/dL (0.2-1.0); Glucose 116 mg/dL (74-106); Magnesium 1.6 mg/dL (1.6-2.6)
[2024-06-29] MEDS: ACETAMINOPHEN 500 MG TAB or CAP PO ONE (01:00)
[2024-06-29 01:10] LABS: Band Neutrophils % (manual) 3; Eosinophils % (manual) 1 (0-7); Lymphocytes % (manual) 2 (10.0-50.0); Platelet Estimate Adequate
[2024-06-29 01:29] LABS: Urine Bacteria MANY /hpf (None Seen); Urine Blood TRACE /uL (Negative); Urine Clarity Ex.Turbid (Clear); Urine Color Light-Orange (Yellow); Urine Mucus FEW (None Seen); Urine Protein, UAD 3+ (Negative); Urine Specific Gravity 1.019 (1.001-1.035); Urine Urobilinogen Normal (Negative); Urine WBC 70 /hpf (0 - 3); Urine WBC Clumps PRESENT /hpf (None Seen); Urine pH 8.5 (5.0-9.0)
[2024-06-29 01:51] LABS: COVID19 ANTIGEN SOFIA FIA NEGATIVE (NEGATIVE); Rapid Influenza A Negative (Negative); Rapid Influenza B Negative (Negative)
[2024-06-29] MEDS: NOREPINEPHRINE 8 MG/250ML KIT 250 ML IV SCH (02:20)
[2024-06-29 02:35] VITALS: PULSE 93; RESP 24; O2SAT 94
[2024-06-29] MEDS: NOREPINEPHRINE 8 MG/250ML KIT 250 ML IV ONE (02:41)
[2024-06-29] MEDS ORDERED: MORPHINE SULFATE INJ 2 MG/ml SYRG IV PRN (05:15)
[2024-06-29] MEDS ORDERED: DEXTROSE (50%) 50ML SYRG IV PRN (05:15)
[2024-06-29] MEDS ORDERED: HYDROcodone-ACET 5/325MG TAB PO PRN (05:15)
[2024-06-29] MEDS ORDERED: ONDANSETRON HCL 4 MG/2 ML VIAL IV PRN (05:15)
[2024-06-29] MEDS ORDERED: NITROGLYCERIN 0.4 MG SL TAB SL PRN (05:15)
[2024-06-29] MEDS ORDERED: ACETAMINOPHEN 325 MG TAB PO PRN (05:15)
[2024-06-29] MEDS ORDERED: DOCUSATE SOD 100 MG CAP PO PRN (05:15)
--- NOTE | 2024-06-29 05:40 | DVHHP2 ---
History of Present Illness Reason for Visit: Sepsis, unspecified organism History of Present Illness The patient is a 69-year-old male bed-bound, morbidly obese with multiple past medical history including AFib, CVA, CHF, DM, and hypertension who presented to [facility] ED for evaluation of generalized weakness. As reported by EMS, patient was picked up at assisted care living facility where caregivers noted she has been generalized weak all day, complaint of lower abdominal pain, and Flynn catheter dependent. Patient was seen and evaluated in the ED, laboratory data shows elevated WBC 16.6, platelets 247, sodium 142, potassium 4.7, BUN 22, creatinine 0.87, GFR 93, glucose 116, total bilirubin 1.6, BNP 103.46, troponin 5, AST 12, ALT 9, blood pressure 89/31 trending up to 112/27, heart rate 95, temperature 99.7 F, O2 saturation 94% on oxygen. Urinalysis positive for urinary tract infection. Chest x-ray revealing mild cardiomegaly, left bibasilar opacification which may represent a small pleural effusion atelectasis; patchy right lower lung zone opacification which may be related to chronic interstitial lung disease versus developing airspace disease. Patient was started on IV norepinephrine, IV antibiotic regimen Zosyn, please see medication orders section in the computer. On my assessment, patient remains weak, no headache, no dizziness, no diaphoresis, currently on oxygen, no diarrhea, no nausea, no vomiting, no fever, no chills. Patient was admitted for further evaluation and medical management. Past Medical History AFIB, CHF, CVA, DM, High Lipids, HTN, UTI'S Past Surgical History Denies all surgeries Family History Reviewed, noncontributory to the management of this case. Past Social History The patient lives at home, denies smoking, alcohol or illicit drugs abuse. Review of Systems Constitutional: Yes: Weakness; No: Fever, Chills, Sweats, Malaise, Other Eyes: No: Pain, Vision change, Conjunctivae inflammation, Eyelid inflammation, Other, Redness ENT: No: Ear pain, Ear discharge, Nose pain, Nose discharge, Nose congestion, Mouth pain, Mouth swelling, Throat pain, Throat swelling, Other Respiratory: No: Cough, Dry, Shortness of breath, SOB with excertion, Wheezing, Hemoptysis, Pleuritic Pain, Sputum, Wheezing, Other Cardiovascular: No: Chest Pain, Palpitations, Orthopnea, Paroxysmal Noc. Dyspnea, Edema, Lt Headedness, Other Gastrointestinal: Nausea, Vomiting, Abdominal Pain; No: Diarrhea, Constipation, Melena, Hematochezia, Other Genitourinary: No Dysuria, No Frequency, No Incontinence, No Hematuria, No Retention; Other (Flynn catheter in place.) Musculoskeletal: No: other, neck pain, shoulder pain, arm pain, back pain, hand pain, leg pain, foot pain Skin: No: Rash, Lesions, Jaundice, Bruising, Other Neurological: No: Weakness, Numbness, Incoordination, Change in speech, Confusion, Seizures, Other Allergies: Uncoded Allergies: orang peel (Adverse Reaction, Intermediate, rash, lip breaks, 06/29/24) Medications Current Medications Medications Dose Ordered Sig/Lito Route Start Time Stop Time Status Last Admin Dose Admin Norepinephrine Bitartrate 250 ml @ 3.75 mls/hr Q24H IV 06/29/24 02:15 06/29/24 02:20 3.75 MLS/HR Exam Vital Signs Vital Signs Date Time Temp Pulse Resp B/P (MAP) Pulse Ox O2 Delivery O2 Flow Rate FiO2 06/29/24 05:00 95 20 126/43 (70) 95 06/29/24 02:40 99.7 99.7 06/29/24 02:35 Nasal Cannula* 2 28 General Appearance: Alert, Oriented X3, Cooperative, No acute distress HEENT: Atraumatic, PERRLA, EOMI, Mucous membr. moist/pink Respiratory: Normal air movement, Other (Diminished breath sounds) Cardiovascular: Regular rate, Normal S1, Normal S2, No murmurs Abdominal: Normal bowel sounds, Soft, No tenderness, No hepatospenomegaly, No masses Extremities: No clubbing, No cyanosis, No edema, Normal pulses, No tenderness/swelling Neuro: Normal speech, Normal tone, Sensation intact, Cranial nerves 3-12 NL, Reflexes 2+, Other (Generalized weakness) Psych/Mental Status: Mental status NL, Mood NL Labs/Xrays Labs Test 06/29/24 00:22 06/29/24 00:20 06/29/24 00:15 06/28/24 23:32 Range/Units Influenza Type A Antigen Negative Negative Influenza Type B Antigen Negative Negative SARS-CoV-2 Antigen (Rapid) Negative NEGATIVE Troponin I High Sensitivity 5 </=54 ng/L Urine Color Light-orange Yellow Urine Clarity Ex.turbid Clear Urine pH 8.5 5.0-9.0 Urine Specific [place] 1.019 1.001-1.035 Urine Protein 3+ H Negative Urine Ketones Negative Negative Urine Blood Trace H Negative /uL Urine Nitrite Negative Negative Urine Bilirubin Negative Negative Urine Urobilinogen Normal Negative mg/dL Urine Leukocyte Esterase 3+ Negative /uL Urine RBC 107 0 - 3 /hpf Urine WBC 70 0 - 3 /hpf Urine WBC Clumps Present None Seen /hpf Urine Squamous Epithelial Cells None seen <5 /hpf Urine Calcium Oxalate Crystals Many None Seen Urine Triple Phosphate Crystals Mod None Seen /hpf Urine Bacteria Many H None Seen /hpf Urine Mucus Few None Seen Urine Glucose Normal Normal mg/dL White Blood Count 16.6 H 4.4-10.8 10^3/uL Red Blood Count 4.48 L 4.5-5.90 10^6/uL Hemoglobin 13.4 L 13.5-17.5 g/dL Hematocrit 41.1 41.0-53.0 % Mean Corpuscular Volume 91.8 80.0-100.0 fL Mean Corpuscular Hemoglobin 29.8 28.0-32.0 pg Mean Corpuscular Hemoglobin Concent 32.5 32.0-36.0 g/dL Red Cell Distribution Width 15.4 H 11.8-14.3 % Platelet Count 247 140-450 10^3/uL Mean Platelet Volume 7.7 6.9-10.8 fL Neutrophils (%) (Auto) 37.0-80.0 % Lymphocytes (%) (Auto) 10.0-50.0 % Monocytes (%) (Auto) 0.0-12.0 % Basophils (%) (Auto) 0.0-2.0 % Neutrophils # (Auto) 1.6-8.6 10 ^3/uL Lymphocytes # (Auto) 0.4-5.4 10 ^3/uL Monocytes # (Auto) 0-1.3 10 ^3/uL Differential Total Cells Counted 100.0 100 Neutrophils % (Manual) 94 H 37.0-80.0 Band Neutrophils % (Manual) 3 Lymphocytes % (Manual) 2 L 10.0-50.0 Monocytes % (Manual) 0 0-12 Eosinophils % (Manual) 1 0-7 Basophils % (Manual) 0 0.0-2.0 Metamyelocytes % (manual) 0 Myelocytes % (Manual) 0 Promyelocytes % (Manual) 0 Blast Cells % (Manual) 0 Reactive Lymphocytes 0 Platelet Estimate Adequate Prothrombin Time 12.7 H 9.3-11.8 sec Prothrombin Time INR 1.22 H 0.9-1.15 Activated Partial Thromboplast Time 30.8 24.5-34.5 SEC Sodium Level 142 136-145 mmol/L Potassium Level 4.7 3.5-5.1 mmol/L Chloride Level 107 98-107 mmol/L Carbon Dioxide Level 26 20-31 mmol/L Anion Gap 9 5-15 Blood Urea Nitrogen 22 9-23 mg/dL Creatinine 0.87 0.700-1.30 mg/dL Glomerular Filtration Rate Calc 93 >90 mL/min BUN/Creatinine Ratio 25.3 H 10.0-20.0 Serum Glucose 116 H 74-106 mg/dL Lactic Acid Level 1.8 0.4-2.0 mmol/L Calcium Level 9.5 8.7-10.4 mg/dL Magnesium Level 1.6 1.6-2.6 mg/dL Total Bilirubin 1.6 H 0.2-1.0 mg/dL Aspartate Amino Transferase (AST) 12 L 13-40 U/L Alanine Aminotransferase (ALT) < 9 7-40 U/L Alkaline Phosphatase 96 46-116 U/L B-Type Natriuretic Peptide 103.46 0-100 pg/mL Total Protein 6.8 5.7-8.2 g/dL Albumin 3.3 3.2-4.8 g/dL PATIENT: ERROL ABDULLAHI ACCT: [id number] UNIT: [id number] : 1955 LOC: ER ROOM / BED: / AGE / SEX: 69 / M ADM STATUS: REG ER SERVICE ORDERING PHYSICIAN: ALBARO BAY MD PROCEDURE(s): CXRP - CHEST PORTABLE REASON: weakness ORDER NUMBER(s): [id number], ACCESSION NUMBER(s): [id number] CHEST RADIOGRAPH Indication: weakness Technique: Single frontal view of the chest was obtained Comparison: XY CHEST PORTABLE on DOS: 05/28/24, XY CHEST PORTABLE on DOS: 02/15/24, XY CHEST PORTABLE on DOS: 02/14/24 Findings/ IMPRESSION: Mild cardiomegaly. Left basilar opacification which may represent a small pleural effusion or atelectasis. Elevated left hemidiaphragm limits evaluation. Patchy right lower lung zone opacification which may be related to chronic interstitial lung disease versus developing airspace disease. Assessment/Plan Assessment/Plan Sepsis, unspecified organism Pneumonia, unspecified organism Pleural effusion Urinary tract infection Generalized weakness Infection and inflammatory reaction due to indwelling urethral catheter, initial encounter Urinary tract infection, site not specified Plan 1. Admit to intensive care unit 2. Breathing treatment 3. Pain control management 4. IV antibiotic management 5. Management of fluids and electrolytes 6. Consultation for Cardiology/hospitalist 7. Diagnostic test chest x-ray 8. DVT prophylaxis-on aspirin 9. Repeat labs CBC, CMP in a.m. 10. Home medication reviewed and reconciled 11. Continue with current medical management 12. Treatment plan discussed with patient and RN. Patient verbalized understanding. Plan discussed with: Patient, Other (RN) My Orders Orders - EMILI VALDOVINOS DNP Procedure Category Date Status Time Complete Blood Count LAB 06/29/24 Transmitted 05:06 Comprehensive LAB 06/29/24 Transmitted Metabolic Panel 05:06 Zosyn Extended PHA 06/29/24 Transmitted Infusion 06:00 * Cardiology Consult CONS 06/29/24 Transmitted 05:06 Famotidine Injection PHA 06/29/24 Transmitted (Pepcid Injection) 10:00 Atorvastatin (Lipitor) PHA 06/29/24 Transmitted 22:00 Aspirin Tablet PHA 06/29/24 Transmitted 10:00 Consistent DIET 06/29/24 Transmitted Carb(Ccho)Diabetes Breakfast Glucose Blood PHA 06/29/24 Transmitted (Accu-Chek Comfort 07:00 Mild Sliding Scale PHA 06/29/24 Transmitted 07:00 Dextrose 50% Syringe PHA 06/29/24 Transmitted 05:15 Admit ADMIT 06/29/24 Transmitted 05:06 Allergies ZOE 06/29/24 Transmitted 05:06 Code Status CODE 06/29/24 Transmitted 05:06 Sodium Chloride Lock PHA 06/29/24 Transmitted (Saline Lock Ns) 06:00 Oxygen Per Hour RT 06/29/24 Transmitted 05:06 Hydrocodone-Acet PHA 06/29/24 Transmitted 5/325mg Tab ([place] 05:15 Ondansetron Hcl PHA 06/29/24 Transmitted (Zofran) 05:15 Docusate Sodium PHA 06/29/24 Transmitted Capsule (Colace 05:15 Fall Risk Precautions [facility] 06/29/[address] 05:06 Complete Blood Count LAB 06/30/24 Verified 04:00 Comprehensive LAB 06/30/24 Verified Metabolic Panel 04:00 Condition: Critical [facility] 06/29/24 Transmitted 05:06 Acetaminophen Tablet [facility] 06/29/24 Transmitted (Tylenol Tablet) 05:15 Sequential [facility] 06/29/24 Transmitted Compression Device Nitroglycerin [facility] 06/29/24 Transmitted Sublingual (Ntrostat 05:15 Morphine Sulfate [facility] 06/29/24 Transmitted Injection 05:15 Notify Of Changes [facility] 06/29/24 Transmitted From Base 05:06 Fire Sprinkler Installer For [facility] 06/29/24 Transmitted 24 Hours 05:06 Emergency Dysrhythmia [facility] 06/29/24 Transmitted Protocol 05:06 Rhythm Strips Once [facility] 06/29/24 Transmitted Every Shift 05:06 Oxygen By Nasal 06/29/24 Transmitted Cannula 05:06 Problem List: (1) Sepsis, unspecified organism (2) Urinary tract infection (3) Pleural effusion (4) Pneumonia, unspecified organism (5) Urinary tract infection, site not specified (6) Generalized weakness (7) Infection and inflammatory reaction due to indwelling urethral catheter, initial encounter Date of Service: Jun 29, 2024 Billing Provider: EMILI VALDOVINOS DNP Common Visit Codes: [id number] INP/OBS CARE (HIGH) EMILI VALDOVINOS DNP Jun 29, 2024 05:40
[2024-06-29] MEDS: SODIUM CHLOR 0.9% PF (SALINE LOCK) 10ML VIAL/SYR IV SCH (06:00)
[2024-06-29 06:22] LABS: Mean Corpuscular Hgb Conc. 32.3 g/dL (32.0-36.0)
[2024-06-29 06:24] LABS: Hematocrit 41.2 % (41.0-53.0); Hemoglobin 13.3 g/dL (13.5-17.5); Mean Corpuscular Hemoglobin 29.5 pg (28.0-32.0); Mean Corpuscular Volume 91.4 fL (80.0-100.0); Platelet Count (auto) 335 10^3/uL (140-450); Red Blood Cells 4.51 10^6/uL (4.5-5.90); Red Cell Distribution Width 15.8 % (11.8-14.3)
[2024-06-29 06:26] LABS: White Blood Cell 39.7 10^3/uL (4.4-10.8)
[2024-06-29 06:28] LABS: Basophils % (manual) 0 (0.0-2.0); Blast Cells 0; Eosinophils % (manual) 0 (0-7); Metamyelocytes % 0; Myelocytes % 0; Promyelocytes % 0; Reactive Lymphocytes 0
[2024-06-29 06:39] LABS: Albumin 3.4 g/dL (3.2-4.8); Alkaline Phosphatase 91 U/L (46-116); Anion Gap 8 (5-15); Aspartate Aminotransferase 16 U/L (13-40); BUN/Creatinine Ratio 18.2 (10.0-20.0); Calcium 9.6 mg/dL (8.7-10.4); Carbon Dioxide 26 mmol/L (20-31); Chloride 104 mmol/L (98-107); Potassium 4.8 mmol/L (3.5-5.1); Sodium 138 mmol/L (136-145); Total Protein 7.1 g/dL (5.7-8.2)
[2024-06-29 06:40] LABS: Alanine Aminotransferase < 9 U/L (7-40); Bilirubin, Total 2.1 mg/dL (0.2-1.0); Blood Urea Nitrogen 25 mg/dL (9-23); Glucose 157 mg/dL (74-106)
[2024-06-29] MEDS: InsuLIN REG 1unit/0.01ml Soln (100units/ml) SC SCH (07:00)
[2024-06-29] MEDS: ACCU-CHEK COMFORT CURVE STRIP VI SCH (07:12)
[2024-06-29 08:00] VITALS: PULSE 72; RESP 22; O2SAT 93
[2024-06-29 08:20] LABS: Band Neutrophils % (manual) 3; Lymphocytes % (manual) 2 (10.0-50.0); Monocytes % (manual) 2 (0-12)
[2024-06-29 08:21] LABS: Platelet Estimate Adequate
[2024-06-29] MEDS: PIPERACILLIN-TAZOB 3.375GM 100 ML IV SCH (08:29)
[2024-06-29] MEDS: FAMOTIDINE (10MG/ML) 2ML VL IV SCH (10:08)
[2024-06-29] MEDS: ASPirin 81 mg TAB PO SCH (10:08)
--- NOTE | 2024-06-29 11:20 | DVHINCON2 ---
Date Seen: Jun 29, 2024 Referring Physician Critsian Reason for Consultation Hypotension History of Present Illness 69-year-old male with PMH for HTN, CHF, dm , morbid obesity, atrial fibrillation on Eliquis who resides at an assisted living facility presents to the hospital for generalized weakness. Patient fairly sleepy, lethargic and poor historian therefore information gathering mainly from chart review. Apparently per EMS sara jones was picked up at assisted care living facility where caregivers noted she has been generalized weak all day, complaint of lower abdominal pain, and Flynn catheter dependent. In the ER, CXR showed mild cardiomegaly with left basilar opacifications. Patchy right lower lobe opacifications noting possible developing airspace disease. Patient also noted to be hypotensive which did not respond to IV fluid challenge. Patient is seemingly started on Levophed drip. WBCs today 39.7. Creatinine 1.37. Troponin trending negative. Initial lactate 1.8. Cardiology consulted for hypotension. EKG reviewed and shows atrial fibrillation with RVR at 132 beats per minute. Past Medical History As above Past Surgical History As above Family History Denies pertinent family cardiac history Social History Denies alcohol, tobacco, or illicit drug use. Allergies: Uncoded Allergies: orang peel (Adverse Reaction, Intermediate, rash, lip breaks, 06/29/24) Home Meds Active Scripts Cefpodoxime Proxetil (Cefpodoxime Proxetil) 200 Mg Tab, 1 TAB PO BID for 21 Days, #42 TAB Prov:JULIANO GOMEZ RESIDENT 02/13/24 Carvedilol (COREG) 3.125 Mg Tab, 3.125 MG PO Q12HR for 30 Days, #60 TAB Prov:JULIANO GOMEZ RESIDENT 02/13/24 Atorvastatin Calcium (ATORVASTATIN CALCIUM) 20 Mg Tab, 40 MG PO HS for 30 Days, #60 TAB 2 Refills Prov:JULIANO GOMEZ RESIDENT 02/13/24 Aspirin (Aspirin Low Dose) 81 Mg Tab, 81 MG PO DAILY for 30 Days, #30 TAB 2 Refills Prov:JULIANO GOMEZ RESIDENT 02/13/24 Current Medications Current Medications Medications (Trade) Dose Ordered Sig/Lito Route PRN Reason Start Time Stop Time Status Last Admin Norepinephrine Bitartrate 250 ml @ 3.75 mls/hr Q24H IV 06/29/24 02:15 06/29/24 07:38 Piperacillin Sod/ Tazobactam Sod 100 ml @ 25 mls/hr Q8H IV 06/29/24 08:00 06/29/24 08:29 Famotidine (Pepcid Injection) 20 mg DAILY IV 06/29/24 10:00 06/29/24 10:08 Atorvastatin Calcium (Lipitor) 10 mg HS PO 06/29/24 22:00 Aspirin 81 mg DAILY PO 06/29/24 10:00 06/29/24 10:08 Diagnostic Test (Pha) (Accu-Chek Comfort Curve T) 1 strip ACHS 06/29/24 07:00 06/29/24 07:12 Insulin Human Regular (InsuLIN R) ACHS SC 06/29/24 07:00 Dextrose 50 ml UD PRN IV Blood Sugar LESS THAN 60 06/29/24 05:15 Sodium Chloride (Saline Lock Ns) 10 ml Q8HR IV 06/29/24 06:00 06/29/24 06:00 Acetaminophen/ Hydrocodone Bitart ([place] 5/325MG Tab) 1 tab Q4HP PRN PO MODERATE PAIN (4-6 PAIN SCALE) 06/29/24 05:15 Ondansetron HCl (Zofran) 4 mg Q4HP PRN IV NAUSEA / VOMITING 06/29/24 05:15 Docusate Sodium (Colace Capsule) 100 mg BIDPRN PRN PO FOR CONSTIPATION 06/29/24 05:15 Acetaminophen (Tylenol Tablet) 650 mg Q6HP PRN PO PAIN SCALE 1-3 OR TEMP>100.4 06/29/24 05:15 Nitroglycerin (Ntrostat Sublingual) 0.4 mg Q5MINP PRN SL FOR CHEST PAIN 06/29/24 05:15 Morphine Sulfate 2 mg Q30M PRN IV FOR CHEST PAIN 06/29/24 05:15 Review of Systems Constitutional: No: Fever, Chills, Sweats, , Other positive: Weakness, Malaise Eyes: No: Pain, Vision change, Conjunctivae inflammation, Eyelid inflammation, Other, Redness ENT: No: Ear pain, Ear discharge, Nose pain, Nose discharge, Nose congestion, Mouth pain, Mouth swelling, Throat pain, Throat swelling, Other Respiratory: No: Cough, Dry, , SOB with exertion, Wheezing, Hemoptysis, Pleuritic Pain, Sputum, Wheezing, Other positive: Shortness of breath Cardiovascular: ; No: Chest Pain Palpitations, Orthopnea, Paroxysmal Noc. Dyspnea, Edema, Lt Headedness, Other Gastrointestinal: No: Nausea, Vomiting, Abdominal Pain, Diarrhea, Constipation, Melena, Hematochezia, Other Genitourinary: No Dysuria, No Frequency, No Incontinence, No Hematuria, No Retention, No Other Musculoskeletal: neck pain; No: other, shoulder pain, arm pain, back pain, hand pain, leg pain, foot pain Skin: No: Rash, Lesions, Jaundice, Bruising, Other Neurological: Other (Dizziness, headache.); No: Weakness, Numbness, Incoordination, Change in speech, Confusion, Seizures Vital Signs Vital Signs Date Time Temp Pulse Resp B/P (MAP) Pulse Ox O2 Delivery O2 Flow Rate FiO2 06/29/24 08:15 81 25 118/33 (61) 94 06/29/24 08:00 Nasal Cannula* 2 28 06/29/24 08:00 98.5 98.5 Physical Exam General appearance: Patient is well-developed, well-nourished, in no acute distress. HEENT: Exam shows: Normocephalic, atraumatic, PERRLA, EOMI Neck: Supple, no bruits Chest: Equal chest excursion bilaterally. Breath sounds rhonchi and diminished. Heart: Rhythm: Irregular rate; no murmur or gallop Abdomen: Exam shows: Soft, nontender, nondistended Musculoskeletal: No clubbing, no cyanosis, + lower extremity edema Dermatology: Skin warm, moist. Neurological: Exam shows: Sleepy and oriented x2-3, Available prior records, labs, EKG, rhythm strips reviewed and interpreted Labs/Diagnostic Data Labs Test 06/29/24 07:09 06/29/24 05:48 06/29/24 00:22 06/29/24 00:20 Range/Units POC Glucose 146 H 70-106 mg/dl White Blood Count 39.7 #*H 4.4-10.8 10^3/uL Red Blood Count 4.51 4.5-5.90 10^6/uL Hemoglobin 13.3 L 13.5-17.5 g/dL Hematocrit 41.2 41.0-53.0 % Mean Corpuscular Volume 91.4 80.0-100.0 fL Mean Corpuscular Hemoglobin 29.5 28.0-32.0 pg Mean Corpuscular Hemoglobin Concent 32.3 32.0-36.0 g/dL Red Cell Distribution Width 15.8 H 11.8-14.3 % Platelet Count 335 140-450 10^3/uL Mean Platelet Volume 7.7 6.9-10.8 fL Neutrophils (%) (Auto) 37.0-80.0 % Lymphocytes (%) (Auto) 10.0-50.0 % Monocytes (%) (Auto) 0.0-12.0 % Basophils (%) (Auto) 0.0-2.0 % Neutrophils # (Auto) 1.6-8.6 10 ^3/uL Lymphocytes # (Auto) 0.4-5.4 10 ^3/uL Monocytes # (Auto) 0-1.3 10 ^3/uL Differential Total Cells Counted 100.0 100 Neutrophils % (Manual) 93 H 37.0-80.0 Band Neutrophils % (Manual) 3 Lymphocytes % (Manual) 2 L 10.0-50.0 Monocytes % (Manual) 2 0-12 Eosinophils % (Manual) 0 0-7 Basophils % (Manual) 0 0.0-2.0 Metamyelocytes % (manual) 0 Myelocytes % (Manual) 0 Promyelocytes % (Manual) 0 Blast Cells % (Manual) 0 Reactive Lymphocytes 0 Platelet Estimate Adequate Sodium Level 138 136-145 mmol/L Potassium Level 4.8 3.5-5.1 mmol/L Chloride Level 104 98-107 mmol/L Carbon Dioxide Level 26 20-31 mmol/L Anion Gap 8 5-15 Blood Urea Nitrogen 25 H 9-23 mg/dL Creatinine 1.37 H 0.700-1.30 mg/dL Glomerular Filtration Rate Calc 56 >90 mL/min BUN/Creatinine Ratio 18.2 10.0-20.0 Serum Glucose 157 H 74-106 mg/dL Calcium Level 9.6 8.7-10.4 mg/dL Total Bilirubin 2.1 H 0.2-1.0 mg/dL Aspartate Amino Transferase (AST) 16 13-40 U/L Alanine Aminotransferase (ALT) < 9 7-40 U/L Alkaline Phosphatase 91 46-116 U/L Total Protein 7.1 5.7-8.2 g/dL Albumin 3.4 3.2-4.8 g/dL Influenza Type A Antigen Negative Negative Influenza Type B Antigen Negative Negative SARS-CoV-2 Antigen (Rapid) Negative NEGATIVE Troponin I High Sensitivity 5 </=54 ng/L Test 06/29/24 00:15 06/28/24 23:32 Range/Units Urine Color Light-orange Yellow Urine Clarity Ex.turbid Clear Urine pH 8.5 5.0-9.0 Urine Specific [place] 1.019 1.001-1.035 Urine Protein 3+ H Negative Urine Ketones Negative Negative Urine Blood Trace H Negative /uL Urine Nitrite Negative Negative Urine Bilirubin Negative Negative Urine Urobilinogen Normal Negative mg/dL Urine Leukocyte Esterase 3+ Negative /uL Urine RBC 107 0 - 3 /hpf Urine WBC 70 0 - 3 /hpf Urine WBC Clumps Present None Seen /hpf Urine Squamous Epithelial Cells None seen <5 /hpf Urine Calcium Oxalate Crystals Many None Seen Urine Triple Phosphate Crystals Mod None Seen /hpf Urine Bacteria Many H None Seen /hpf Urine Mucus Few None Seen Urine Glucose Normal Normal mg/dL Prothrombin Time 12.7 H 9.3-11.8 sec Prothrombin Time INR 1.22 H 0.9-1.15 Activated Partial Thromboplast Time 30.8 24.5-34.5 SEC Lactic Acid Level 1.8 0.4-2.0 mmol/L Magnesium Level 1.6 1.6-2.6 mg/dL B-Type Natriuretic Peptide 103.46 0-100 pg/mL Assessment * Septic shock * Atrial fibrillation with episode of RVR * Acute hypoxic respiratory failure * Pneumonia * UTI * Long-term indwelling catheter * MIGUEL Plan/Recommendation Case Discussed with Dr Mclaughlin. * Hypotension in the setting of septic shock. * On empiric antibiotics. Follow up blood and urine cultures * Continue on Levophed drip for blood pressure support. * Follow-up echo. * Atrial fibrillation controlled. * Home dose Lopressor held in setting of hypotension. * Continue on full-dose Lovenox for stroke prophylaxis with plan to restart home dose Eliquis 5 mg twice daily upon discharge. * Avoid nephrotoxic agents. * Continue monitoring creatinine. * Continue close monitoring in ICU. Critical care, time spent: 48 minutes This medical document was created using an electronic medical record system with voice recognition software and computerized dictation system. Although this document has been carefully reviewed, there might still be some phonetic and typographical errors. Occasional wrong-word or ``sound-alike substitutions may have occurred due to the inherent limitations of voice recognition software. These areas are purely typographical due to imperfections of the software programs and do not reflect any compromise in the patient's medical care. Please read the chart carefully and recognize, using context, where these substitutions have occurred. Thank you for allowing me to participate in the management of this patient. Plan discussed with: Patient Date of Service: Jun 29, 2024 Billing Provider: KELVIN ZAVALA Cardiology Common Codes: [id number] INP/OBS CARE (High), [id number] CARE 30-74 MIN KELVIN ZAVALA Jun 29, 2024 11:19
--- NOTE | 2024-06-29 13:17 | DVHPN2 ---
Reviewed: Care Plan, H&P, Labs, Medications, Previous Orders, Radiology Eyes: No Pain, No Vision change, No Conjunctivae inflammation, No Eyelid inflammation, No Other, No Redness ENT: No Ear pain, No Ear discharge, No Nose pain, No Nose discharge, No Nose congestion, No Mouth pain, No Mouth swelling, No Throat pain, No Throat swelling, No Other Cardiovascular: No Chest Pain, No Palpitations, No Orthopnea, No Paroxysmal Noc. Dyspnea, No Edema, No Lt Headedness, No Other Respiratory: No Cough, No Dry, No Shortness of breath, No SOB with excertion, No Wheezing, No Hemoptysis, No Pleuritic Pain, No Sputum, No Other Gastrointestinal: Nausea, Vomiting, Abdominal Pain; No Diarrhea, No Constipation, No Melena, No Hematochezia, No Other Genitourinary: No Dysuria, No Frequency, No Incontinence, No Hematuria, No Retention; Other (Flynn catheter in place.) Musculoskeletal: No other, No neck pain, No shoulder pain, No arm pain, No back pain, No hand pain, No leg pain, No foot pain Skin: No Rash, No Lesions, No Jaundice, No Bruising, No Other Objective Vitals Vital Signs Date Time Temp Pulse Resp B/P (MAP) Pulse Ox O2 Delivery O2 Flow Rate FiO2 06/29/24 12:43 101/42 06/29/24 12:00 67 06/29/24 10:30 15 91 06/29/24 08:00 Nasal Cannula* 2 28 06/29/24 08:00 98.5 98.5 Intake/Output Intake and Output 06/29/24 07:00 Intake Total 100 ml Balance 100 ml Intake IV Total 100 ml Medications Current Medications Medications Dose Ordered Sig/Lito Route Start Time Stop Time Status Last Admin Dose Admin Norepinephrine Bitartrate 250 ml @ 3.75 mls/hr Q24H IV 06/29/24 02:15 06/29/24 12:43 56.25 MLS/HR Piperacillin Sod/ Tazobactam Sod 100 ml @ 25 mls/hr Q8H IV 06/29/24 08:00 06/29/24 08:29 25 MLS/HR Famotidine 20 mg DAILY IV 06/29/24 10:00 06/29/24 10:08 20 MG Atorvastatin Calcium 10 mg HS PO 06/29/24 22:00 Aspirin 81 mg DAILY PO 06/29/24 10:00 06/29/24 10:08 81 MG Diagnostic Test (Pha) 1 strip ACHS 06/29/24 07:00 06/29/24 12:09 1 STRIP Insulin Human Regular ACHS SC 06/29/24 07:00 06/29/24 12:10 3 UNITS Dextrose 50 ml UD PRN IV 06/29/24 05:15 Sodium Chloride 10 ml Q8HR IV 06/29/24 06:00 06/29/24 06:00 10 ML Acetaminophen/ Hydrocodone Bitart 1 tab Q4HP PRN PO 06/29/24 05:15 Ondansetron HCl 4 mg Q4HP PRN IV 06/29/24 05:15 Docusate Sodium 100 mg BIDPRN PRN PO 06/29/24 05:15 Acetaminophen 650 mg Q6HP PRN PO 06/29/24 05:15 Nitroglycerin 0.4 mg Q5MINP PRN SL 06/29/24 05:15 Morphine Sulfate 2 mg Q30M PRN IV 06/29/24 05:15 Enoxaparin Sodium 140 mg Q12HR SC 06/29/24 22:00 Laboratory Results Laboratory Tests 06/29/24 05:48 Chemistry Test 06/28/24 23:32 06/29/24 05:48 Albumin 3.3 g/dL (3.2-4.8) 3.4 g/dL (3.2-4.8) Calcium Level 9.5 mg/dL (8.7-10.4) 9.6 mg/dL (8.7-10.4) Magnesium Level 1.6 mg/dL (1.6-2.6) Total Protein 6.8 g/dL (5.7-8.2) 7.1 g/dL (5.7-8.2) Coagulation Test 06/28/24 23:32 Prothrombin Time 12.7 sec (9.3-11.8) H Prothrombin Time INR 1.22 (0.9-1.15) H Activated Partial Thromboplast Time 30.8 SEC (24.5-34.5) Cardiac Markers Test 06/28/24 23:32 B-Type Natriuretic Peptide 103.46 pg/mL (0-100) LFT Test 06/28/24 23:32 06/29/24 05:48 Alanine Aminotransferase (ALT) < 9 U/L (7-40) < 9 U/L (7-40) Alkaline Phosphatase 96 U/L (46-116) 91 U/L (46-116) Aspartate Amino Transferase (AST) 12 U/L (13-40) L 16 U/L (13-40) Total Bilirubin 1.6 mg/dL (0.2-1.0) H 2.1 mg/dL (0.2-1.0) H Urinalysis Test 06/29/24 00:15 Urine Color Light-orange (Yellow) Urine Clarity Ex.turbid (Clear) Urine pH 8.5 (5.0-9.0) Urine Specific [place] 1.019 (1.001-1.035) Urine Protein 3+ (Negative) H Urine Ketones Negative (Negative) Urine Blood Trace /uL (Negative) H Urine Nitrite Negative (Negative) Urine Bilirubin Negative (Negative) Urine Urobilinogen Normal mg/dL (Negative) Urine Leukocyte Esterase 3+ /uL (Negative) Urine RBC 107 /hpf (0 - 3) Urine WBC 70 /hpf (0 - 3) Urine WBC Clumps Present /hpf (None Seen) Urine Squamous Epithelial Cells None seen /hpf (<5) Urine Calcium Oxalate Crystals Many (None Seen) Urine Triple Phosphate Crystals Mod /hpf (None Seen) Urine Bacteria Many /hpf (None Seen) H Urine Mucus Few (None Seen) Urine Glucose Normal mg/dL (Normal) Labs and/or images reviewed: Labs reviewed by me, Image(s) reviewed by me Assessment/Plan Assessment/Plan Septic shock Acute metabolic encephalopathy -community-acquired pneumonia ruled out -cellulitis to left upper extremity and trunk -acute hypoxic respiratory failure -morbid obesity -complicated cystitis -acute hypercarbic respiratory failure with CO2 narcosis Plan discussed with: Patient Date of Service: Jun 29, 2024 Billing Provider: KYLEE PERRY MD Common Visit Codes: [id number] CARE 30-74 MIN KYLEE PERRY MD Jun 29, 2024 13:17
--- NOTE | 2024-06-29 13:22 | DVHPN2 ---
Reviewed: Care Plan, H&P, Labs, Medications, Previous Orders, Radiology Changes from previous H/P or p: No Changes Eyes: No Pain, No Vision change, No Conjunctivae inflammation, No Eyelid inflammation, No Other, No Redness ENT: No Ear pain, No Ear discharge, No Nose pain, No Nose discharge, No Nose congestion, No Mouth pain, No Mouth swelling, No Throat pain, No Throat swelling, No Other Cardiovascular: No Chest Pain, No Palpitations, No Orthopnea, No Paroxysmal Noc. Dyspnea, No Edema, No Lt Headedness, No Other Respiratory: No Cough, No Dry, No Shortness of breath, No SOB with excertion, No Wheezing, No Hemoptysis, No Pleuritic Pain, No Sputum, No Other Gastrointestinal: Nausea, Vomiting, Abdominal Pain; No Diarrhea, No Constipation, No Melena, No Hematochezia, No Other Genitourinary: No Dysuria, No Frequency, No Incontinence, No Hematuria, No Retention; Other (Flynn catheter in place.) Musculoskeletal: No other, No neck pain, No shoulder pain, No arm pain, No back pain, No hand pain, No leg pain, No foot pain Skin: No Rash, No Lesions, No Jaundice, No Bruising, No Other Objective Vitals Vital Signs Date Time Temp Pulse Resp B/P (MAP) Pulse Ox O2 Delivery O2 Flow Rate FiO2 06/29/24 12:43 101/42 06/29/24 12:00 67 06/29/24 10:30 15 91 06/29/24 08:00 Nasal Cannula* 2 28 06/29/24 08:00 98.5 98.5 Intake/Output Intake and Output 06/29/24 07:00 Intake Total 100 ml Balance 100 ml Intake IV Total 100 ml Medications Current Medications Medications Dose Ordered Sig/Lito Route Start Time Stop Time Status Last Admin Dose Admin Norepinephrine Bitartrate 250 ml @ 3.75 mls/hr Q24H IV 06/29/24 02:15 06/29/24 12:43 56.25 MLS/HR Piperacillin Sod/ Tazobactam Sod 100 ml @ 25 mls/hr Q8H IV 06/29/24 08:00 06/29/24 08:29 25 MLS/HR Famotidine 20 mg DAILY IV 06/29/24 10:00 06/29/24 10:08 20 MG Atorvastatin Calcium 10 mg HS PO 06/29/24 22:00 Aspirin 81 mg DAILY PO 06/29/24 10:00 06/29/24 10:08 81 MG Diagnostic Test (Pha) 1 strip ACHS 06/29/24 07:00 06/29/24 12:09 1 STRIP Insulin Human Regular ACHS SC 06/29/24 07:00 06/29/24 12:10 3 UNITS Dextrose 50 ml UD PRN IV 06/29/24 05:15 Sodium Chloride 10 ml Q8HR IV 06/29/24 06:00 06/29/24 06:00 10 ML Acetaminophen/ Hydrocodone Bitart 1 tab Q4HP PRN PO 06/29/24 05:15 Ondansetron HCl 4 mg Q4HP PRN IV 06/29/24 05:15 Docusate Sodium 100 mg BIDPRN PRN PO 06/29/24 05:15 Acetaminophen 650 mg Q6HP PRN PO 06/29/24 05:15 Nitroglycerin 0.4 mg Q5MINP PRN SL 06/29/24 05:15 Morphine Sulfate 2 mg Q30M PRN IV 06/29/24 05:15 Enoxaparin Sodium 140 mg Q12HR SC 06/29/24 22:00 Laboratory Results Laboratory Tests 06/29/24 05:48 Chemistry Test 06/28/24 23:32 06/29/24 05:48 Albumin 3.3 g/dL (3.2-4.8) 3.4 g/dL (3.2-4.8) Calcium Level 9.5 mg/dL (8.7-10.4) 9.6 mg/dL (8.7-10.4) Magnesium Level 1.6 mg/dL (1.6-2.6) Total Protein 6.8 g/dL (5.7-8.2) 7.1 g/dL (5.7-8.2) Coagulation Test 06/28/24 23:32 Prothrombin Time 12.7 sec (9.3-11.8) H Prothrombin Time INR 1.22 (0.9-1.15) H Activated Partial Thromboplast Time 30.8 SEC (24.5-34.5) Cardiac Markers Test 06/28/24 23:32 B-Type Natriuretic Peptide 103.46 pg/mL (0-100) LFT Test 06/28/24 23:32 06/29/24 05:48 Alanine Aminotransferase (ALT) < 9 U/L (7-40) < 9 U/L (7-40) Alkaline Phosphatase 96 U/L (46-116) 91 U/L (46-116) Aspartate Amino Transferase (AST) 12 U/L (13-40) L 16 U/L (13-40) Total Bilirubin 1.6 mg/dL (0.2-1.0) H 2.1 mg/dL (0.2-1.0) H Urinalysis Test 06/29/24 00:15 Urine Color Light-orange (Yellow) Urine Clarity Ex.turbid (Clear) Urine pH 8.5 (5.0-9.0) Urine Specific [place] 1.019 (1.001-1.035) Urine Protein 3+ (Negative) H Urine Ketones Negative (Negative) Urine Blood Trace /uL (Negative) H Urine Nitrite Negative (Negative) Urine Bilirubin Negative (Negative) Urine Urobilinogen Normal mg/dL (Negative) Urine Leukocyte Esterase 3+ /uL (Negative) Urine RBC 107 /hpf (0 - 3) Urine WBC 70 /hpf (0 - 3) Urine WBC Clumps Present /hpf (None Seen) Urine Squamous Epithelial Cells None seen /hpf (<5) Urine Calcium Oxalate Crystals Many (None Seen) Urine Triple Phosphate Crystals Mod /hpf (None Seen) Urine Bacteria Many /hpf (None Seen) H Urine Mucus Few (None Seen) Urine Glucose Normal mg/dL (Normal) Assessment/Plan Assessment/Plan Acute hypoxic respiratory failure: Oxygen by nasal cannula Septic shock elevated white count 39 K secondary to community-acquired left lower lobe pneumonia: Blood cultures Zosyn Acute urinary tract infection: Rocephin blood cultures urine cultures Acute metabolic encephalopathy Hypercholesterolemia: Lipitor COVID test negative Flu test negative -community-acquired pneumonia ruled out -cellulitis to left upper extremity and trunk Time taken 65 minutes Patient is full code Advanced care planning time 20 minutes -morbid obesity -complicated cystitis Patient is hospice revoked Discharged from this hospital on 05/31/2024 Plan discussed with: Patient Date of Service: Jun 29, 2024 Billing Provider: KYLEE PERRY MD Common Visit Codes: [id number] CARE 30-74 MIN KYLEE PERRY MD Jun 29, 2024 13:22
--- NOTE | 2024-06-29 13:54 | DVHSR ---
APPROVED REPORT EXAM: LIMITED Two-dimensional and M-mode echocardiogram with Doppler and color Doppler. Blood Pressure: 99/66 mmHg INDICATION Shock RISK FACTORS Obesity: Height: 5' 10", Weight: 300 DIMENSIONS LVDd4.5 (3.8-5.7cm)LA (2D)5.9 (1.9-4.0cm)Aortic Root3.8 (2.0-3.7cm) LVDs3.3 (2.5-4.0cm)LA (MM) (1.9-4.0cm)Aortic Cusp Exc1.9 (1.5-2.0cm) EF (%) 60.0 (55-70%)Rt. Atrium7.4 (1.9-4.0cm)Asc. Aorta cm IVSd1.6 (0.7-1.1cm)RV (D) (1.8-2.4cm) PWd1.6 (0.7-1.1cm) Mitral Valve MitralMitral Stenosis E wave1.20m/sMV Mean GR.mmHg E/A ratio0.02D MVAcm2 Aortic Valve Aortic ValveAortic Stenosis V10.50m/Regina Mean GR.3mmHg V21.00m/Regina Peak GR.5mmHg LVOT Diameter2.6 (1.8-2.4cm)Doppler AVA2.65cm2 Pulmonic Valve V20.80m/s Tricuspid Valve TR Velocity3.80m/s [id number] Other Information Quality : Technically LimitedRhythm : Technically limited study due to body habitus. Conclusion lvef 55% mild LVH mild mitral regurg RV enlarged, not well seen RA enlarged at least moderate to severe tricsuspid regurg, RV failure noted
--- NOTE | 2024-06-29 18:07 | DVH ---
LEFT Upper Extremity Venous Duplex Clinical History: R/O DVT Comparison: US BILAT LOWER DVT on DOS: 02/01/24 Technique: Duplex Doppler evaluation of the venous system of the RIGHT lower neck and upper extremity including color Doppler and spectral/pulsed waveform analysis was performed. Findings: The internal jugular vein demonstrates appropriate compressibility and waveform variability. The subclavian vein is patent on color Doppler evaluation without intraluminal thrombus and demonstra nicola waveform variability. The visualized portion of the brachiocephalic vein is patent on color Doppler evaluation without intr aluminal thrombus and demonstrates waveform variability. The axillary vein demonstrates appropriate compressibility and waveform variability. The brachial veins demonstrate appropriate compressibility and patency on Doppler evaluation. The basilic vein demonstrates appropriate compressibility and patency on Doppler evaluation. The cephalic vein demonstrates appropriate compressibility and patency on Doppler evaluation. Impression: 1. No venous thrombus identified in the LEFT upper extremity vessels evaluated above. 2. If clinical concern/symptoms persist or worsen, short-interval follow-up study is suggested.
--- NOTE | 2024-06-29 21:02 | ED.PDOC ---
Was a procedure done? 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: Attending Physician Indication: Hypotension, Inability to obtain IV Room prepared for procedure: Yes Imaging Technologist performed hand hygien: Yes Maximal sterile barrier precau: Sterile gown, Sterlie gloves, Large sterlie drape Skin Preparation: Chlorhexidine gluconate Skin preparation completely dr: Yes Insertion site: Right, Internal jugular Central line catheter type: [id number] dialysis Number of lumens: 3 Central line exchanged over a: Yes Antiseptic ointment applied to: No Post Assessment: Chest X-Ray, Proper placement, No Pneumothorax Informed consent obtained: Yes Risks/benefits/alt described: Yes RAMA THORNTON MD Jun 29, 2024 21:02
--- NOTE | 2024-06-29 21:18 | DVH ---
CHEST RADIOGRAPH Indication: central line placement Technique: Single frontal view of the chest was obtained Comparison: XY CHEST PORTABLE on DOS: 06/28/24, XY CHEST PORTABLE on DOS: 05/28/24, XY CHEST PORTABLE on DOS: 02/15/24 FINDINGS: Lines and Tubes: Right IJ approach central venous catheter terminating over the superior cavoatrial j unction. Image rotation to the left. Lungs: Diffuse interstitial prominence with left lower lung zone opacification and obscuration of the left hemidiaphragm. Pleura: No effusion. No pneumothorax. Cardiomediastinal contours: [id number] cardiomegaly Bones: No acute osseous abnormality. IMPRESSION: Cardiomegaly with pulmonary vascular congestion and possible small left-sided pleural effusion with a ssociated atelectasis. Underlying left lower lung zone pneumonia can not be excluded.
[2024-06-29] MEDS: ATORVASTATIN 20 MG TAB PO SCH (23:04)
[2024-06-29] MEDS: ENOXAPARIN SOD 150 MG/1 ML SYRINGE SC SCH (23:05)
[2024-06-30 04:57] LABS: Basophils # (auto) 0.1 10 ^3/uL (0-0.2); Basophils % (auto) 0.3 % (0.0-2.0); Eosinophils # (auto) 0.3 10 ^3/uL (0-0.8); Eosinophils % (auto) 1.7 % (0.0-7.0); Hematocrit 38.8 % (41.0-53.0); Hemoglobin 12.8 g/dL (13.5-17.5); Lymphocytes # (auto) 2.2 10 ^3/uL (0.4-5.4); Lymphocytes % (auto) 13.3 % (10.0-50.0); Mean Corpuscular Hemoglobin 29.9 pg (28.0-32.0); Mean Corpuscular Hgb Conc. 32.9 g/dL (32.0-36.0); Mean Corpuscular Volume 90.9 fL (80.0-100.0); Monocytes # (auto) 1.2 10 ^3/uL (0-1.3); Monocytes % (auto) 7.4 % (0.0-12.0); Neutrophils # (auto) 12.6 10 ^3/uL (1.6-8.6); Neutrophils % (auto) 77.3 % (37.0-80.0); Nucleated Red Blood Cells % 0.1 %; Platelet Count (auto) 261 10^3/uL (140-450); Red Blood Cells 4.27 10^6/uL (4.5-5.90); Red Cell Distribution Width 15.6 % (11.8-14.3); White Blood Cell 16.3 10^3/uL (4.4-10.8)
[2024-06-30 05:12] LABS: Albumin 3.2 g/dL (3.2-4.8); Alkaline Phosphatase 78 U/L (46-116); Anion Gap 5 (5-15); BUN/Creatinine Ratio 24.7 (10.0-20.0); Calcium 9.4 mg/dL (8.7-10.4); Chloride 103 mmol/L (98-107); Potassium 4.9 mmol/L (3.5-5.1); Sodium 139 mmol/L (136-145)
[2024-06-30 05:13] LABS: Bilirubin, Total 1.1 mg/dL (0.2-1.0); Total Protein 6.7 g/dL (5.7-8.2)
[2024-06-30 05:14] LABS: Alanine Aminotransferase < 9 U/L (7-40); Aspartate Aminotransferase 10 U/L (13-40); Blood Urea Nitrogen 23 mg/dL (9-23); Carbon Dioxide 31 mmol/L (20-31); Glucose 150 mg/dL (74-106)
[2024-06-30 07:25] VITALS: PULSE 73; RESP 26; O2SAT 95
--- NOTE | 2024-06-30 09:13 | DVHPN2 ---
Progress Note Date Seen: Jun 30, 2024 Medical Necessity Reason Pt with a Central, PICC or Fol: No Subjective Patient reports: Feels better Other Systems: wbc iproved rate controlled afib good uop Objective vital signs Vital Sign Date Time Temp Pulse Resp B/P (MAP) Pulse Ox O2 Delivery O2 Flow Rate FiO2 06/30/24 08:48 123/46 06/30/24 08:06 73 06/30/24 07:25 26 95 Nasal Cannula* 3 32 06/30/24 00:30 97.8 97.8 Total Intake and Output 06/29/24 06/29/24 06/30/24 15:00 23:00 07:00 Intake Total 245.6875 ml 50 ml Output Total 2025 ml Balance 245.6875 ml -1975 ml medications Current Medications Medications Dose Ordered Sig/Lito Route Start Time Stop Time Status Last Admin Dose Admin Norepinephrine Bitartrate 250 ml @ 3.75 mls/hr Q24H IV 06/29/24 02:15 06/30/24 04:10 41.25 MLS/HR Piperacillin Sod/ Tazobactam Sod 100 ml @ 25 mls/hr Q8H IV 06/29/24 08:00 06/30/24 07:43 25 MLS/HR Famotidine 20 mg DAILY IV 06/29/24 10:00 06/29/24 10:08 20 MG Atorvastatin Calcium 10 mg HS PO 06/29/24 22:00 06/29/24 23:04 10 MG Aspirin 81 mg DAILY PO 06/29/24 10:00 06/29/24 10:08 81 MG Diagnostic Test (Pha) 1 strip ACHS 06/29/24 07:00 06/30/24 06:26 1 STRIP Insulin Human Regular ACHS SC 06/29/24 07:00 06/29/24 12:10 3 UNITS Dextrose 50 ml UD PRN IV 06/29/24 05:15 Sodium Chloride 10 ml Q8HR IV 06/29/24 06:00 06/30/24 05:36 10 ML Acetaminophen/ Hydrocodone Bitart 1 tab Q4HP PRN PO 06/29/24 05:15 Ondansetron HCl 4 mg Q4HP PRN IV 06/29/24 05:15 Docusate Sodium 100 mg BIDPRN PRN PO 06/29/24 05:15 Acetaminophen 650 mg Q6HP PRN PO 06/29/24 05:15 Nitroglycerin 0.4 mg Q5MINP PRN SL 06/29/24 05:15 Morphine Sulfate 2 mg Q30M PRN IV 06/29/24 05:15 Enoxaparin Sodium 140 mg Q12HR SC 06/29/24 22:00 06/29/24 23:05 140 MG Examination: GENERAL:Abnormal, HEENT:Abnormal, LUNGS:Abnormal, CVS:Abnormal, ABDOMEN:Abnormal laboratory and microbiology Laboratory Tests 06/30/24 03:50 Test 06/30/24 03:50 Range/Units Serum Glucose 150 H 74-106 mg/dL Microbiology Date/Time Source Procedure Growth Status 06/29/24 00:50 Blood Blood Culture - Preliminary NO GROWTH AFTER 24 HOURS OF INCUBATION. Resulted 06/29/24 00:15 Urine - Catheterized Urine Culture - Preliminary Resulted Problem List/Assessment/Plan Problem List/Assessment/Plan septic shock morbid obesity previous hospice afib rvr ckd cont abx per hospitalist cont pressors as needed, wean off as pt tolerates and improves pt is rate controlled on no meds now, HR 70s on lovenox, transition to his doac when feasible 40 mins critical care time spent Plan discussed with: Patient, Other (rn) Date of Service: Jun 30, 2024 Billing Provider: CHEYENNE PEARL MD Common Visit Codes: NOT BILLABLE CHEYENNE PEARL MD Jun 30, 2024 09:13
--- NOTE | 2024-06-30 09:14 | DVHPN2 ---
Reviewed: Care Plan, H&P, Labs, Medications, Previous Orders, Radiology Changes from previous H/P or p: No Changes Eyes: No Pain, No Vision change, No Conjunctivae inflammation, No Eyelid inflammation, No Other, No Redness ENT: No Ear pain, No Ear discharge, No Nose pain, No Nose discharge, No Nose congestion, No Mouth pain, No Mouth swelling, No Throat pain, No Throat swelling, No Other Cardiovascular: No Chest Pain, No Palpitations, No Orthopnea, No Paroxysmal Noc. Dyspnea, No Edema, No Lt Headedness, No Other Respiratory: No Cough, No Dry, No Shortness of breath, No SOB with excertion, No Wheezing, No Hemoptysis, No Pleuritic Pain, No Sputum, No Other Gastrointestinal: Nausea, Vomiting, Abdominal Pain; No Diarrhea, No Constipation, No Melena, No Hematochezia, No Other Genitourinary: No Dysuria, No Frequency, No Incontinence, No Hematuria, No Retention; Other (Flynn catheter in place.) Musculoskeletal: No other, No neck pain, No shoulder pain, No arm pain, No back pain, No hand pain, No leg pain, No foot pain Skin: No Rash, No Lesions, No Jaundice, No Bruising, No Other Objective Vitals Vital Signs Date Time Temp Pulse Resp B/P (MAP) Pulse Ox O2 Delivery O2 Flow Rate FiO2 06/30/24 08:48 123/46 06/30/24 08:06 73 06/30/24 07:25 26 95 Nasal Cannula* 3 32 06/30/24 00:30 97.8 97.8 Intake/Output Intake and Output 06/30/24 07:00 Intake Total 295.6875 ml Output Total 2025 ml Balance -1729.3125 ml Intake IV Total 295.6875 ml Output Urine Total 2025 ml Medications Current Medications Medications Dose Ordered Sig/Lito Route Start Time Stop Time Status Last Admin Dose Admin Norepinephrine Bitartrate 250 ml @ 3.75 mls/hr Q24H IV 06/29/24 02:15 06/30/24 04:10 41.25 MLS/HR Piperacillin Sod/ Tazobactam Sod 100 ml @ 25 mls/hr Q8H IV 06/29/24 08:00 06/30/24 07:43 25 MLS/HR Famotidine 20 mg DAILY IV 06/29/24 10:00 12/14/24 10:08 20 MG Atorvastatin Calcium 10 mg HS PO 06/29/24 22:00 06/29/24 23:04 10 MG Aspirin 81 mg DAILY PO 06/29/24 10:00 06/29/24 10:08 81 MG Diagnostic Test (Pha) 1 strip ACHS 06/29/24 07:00 06/30/24 06:26 1 STRIP Insulin Human Regular ACHS SC 06/29/24 07:00 06/29/24 12:10 3 UNITS Dextrose 50 ml UD PRN IV 06/29/24 05:15 Sodium Chloride 10 ml Q8HR IV 06/29/24 06:00 06/30/24 05:36 10 ML Acetaminophen/ Hydrocodone Bitart 1 tab Q4HP PRN PO 06/29/24 05:15 Ondansetron HCl 4 mg Q4HP PRN IV 06/29/24 05:15 Docusate Sodium 100 mg BIDPRN PRN PO 06/29/24 05:15 Acetaminophen 650 mg Q6HP PRN PO 06/29/24 05:15 Nitroglycerin 0.4 mg Q5MINP PRN SL 06/29/24 05:15 Morphine Sulfate 2 mg Q30M PRN IV 06/29/24 05:15 Enoxaparin Sodium 140 mg Q12HR SC 06/29/24 22:00 06/29/24 23:05 140 MG Laboratory Results Laboratory Tests 06/30/24 03:50 Chemistry Test 06/30/24 03:50 Albumin 3.2 g/dL (3.2-4.8) Calcium Level 9.4 mg/dL (8.7-10.4) Total Protein 6.7 g/dL (5.7-8.2) LFT Test 06/30/24 03:50 Alanine Aminotransferase (ALT) < 9 U/L (7-40) Alkaline Phosphatase 78 U/L (46-116) Aspartate Amino Transferase (AST) 10 U/L (13-40) L Total Bilirubin 1.1 mg/dL (0.2-1.0) H Urinalysis Test 06/29/24 00:15 Urine Color Light-orange (Yellow) Urine Clarity Ex.turbid (Clear) Urine pH 8.5 (5.0-9.0) Urine Specific [place] 1.019 (1.001-1.035) Urine Protein 3+ (Negative) H Urine Ketones Negative (Negative) Urine Blood Trace /uL (Negative) H Urine Nitrite Negative (Negative) Urine Bilirubin Negative (Negative) Urine Urobilinogen Normal mg/dL (Negative) Urine Leukocyte Esterase 3+ /uL (Negative) Urine RBC 107 /hpf (0 - 3) Urine WBC 70 /hpf (0 - 3) Urine WBC Clumps Present /hpf (None Seen) Urine Squamous Epithelial Cells None seen /hpf (<5) Urine Calcium Oxalate Crystals Many (None Seen) Urine Triple Phosphate Crystals Mod /hpf (None Seen) Urine Bacteria Many /hpf (None Seen) H Urine Mucus Few (None Seen) Urine Glucose Normal mg/dL (Normal) Microbiology Microbiology Date/Time Source Procedure Growth Status 06/29/24 00:50 Blood Blood Culture - Preliminary NO GROWTH AFTER 24 HOURS OF INCUBATION. Resulted 06/29/24 00:15 Urine - Catheterized Urine Culture - Preliminary Resulted Labs and/or images reviewed: Labs reviewed by me, Image(s) reviewed by me Assessment/Plan Assessment/Plan Acute hypoxic respiratory failure: Oxygen by nasal cannula Septic shock elevated white count 39 K secondary to community-acquired left lower lobe pneumonia: Blood cultures Zosyn Acute urinary tract infection: Rocephin blood culture negative, urine cultures growing Gram-negative rods Acute metabolic encephalopathy Hypercholesterolemia: Lipitor COVID test negative Flu test negative AFib with RVR: Continue Lovenox transition to Eliquis when appropriate History of stroke 2022 with left hemiplegia Chronically bed-bound Long-term indwelling catheter AK I Time taken 65 minutes Patient is full code Advanced care planning time 20 minutes Morbid obesity BMI of 43 Patient is hospice revoked Discharged from this hospital on 05/31/2024 Plan discussed with: Patient Date of Service: Jun 30, 2024 Billing Provider: KYLEE PERRY MD Common Visit Codes: [id number] CARE 30-74 MIN KYLEE PERRY MD Jun 30, 2024 09:14
[2024-06-30] MEDS: cefTRIAXone 1GM/50ML D5W 50 ML IV ONE (11:30)
[2024-06-30 21:46] VITALS: PULSE 70; RESP 19; O2SAT 99
--- NOTE | 2024-07-01 08:01 | DVHPN2 ---
Reviewed: Care Plan, H&P, Labs, Medications, Previous Orders, Radiology Changes from previous H/P or p: No Changes Eyes: No Pain, No Vision change, No Conjunctivae inflammation, No Eyelid in flammation, No Other, No Redness ENT: No Ear pain, No Ear discharge, No Nose pain, No Nose discharge, No Nose congestion, No Mouth pain, No Mouth swelling, No Throat pain, No Throat swelling, No Other Cardiovascular: No Chest Pain, No Palpitations, No Orthopnea, No Paroxysmal Noc. Dyspnea, No Edema, No Lt Headedness, No Other Respiratory: No Cough, No Dry, No Shortness of breath, No SOB with excertion, No Wheezing, No Hemoptysis, No Pleuritic Pain, No Sputum, No Other Gastrointestinal: Nausea, Vomiting, Abdominal Pain; No Diarrhea, No Constipation, No Melena, No Hematochezia, No Other Genitourinary: No Dysuria, No Frequency, No Incontinence, No Hematuria, No Retention; Other (Flynn catheter in place.) Musculoskeletal: No other, No neck pain, No shoulder pain, No arm pain, No back pain, No hand pain, No leg pain, No foot pain Skin: No Rash, No Lesions, No Jaundice, No Bruising, No Other Objective Vitals Vital Signs Date Time Temp Pulse Resp B/P (MAP) Pulse Ox O2 Delivery O2 Flow Rate FiO2 07/01/24 06:45 91 18 118/39 (65) 96 06/30/24 21:46 Nasal Cannula* 2 28 06/30/24 19:30 98.2 98.2 Intake/Output Intake and Output 07/01/24 07:00 Intake Total 442.275 ml Output Total 600 ml Balance -157.725 ml Intake IV Total 442.275 ml Output Urine Total 600 ml Medications Current Medications Medications Dose Ordered Sig/Lito Route Start Time Stop Time Status Last Admin Dose Admin Norepinephrine Bitartrate 250 ml @ 3.75 mls/hr Q24H IV 06/29/24 02:15 06/30/24 04:10 41.25 MLS/HR Piperacillin Sod/ Tazobactam Sod 100 ml @ 25 mls/hr Q8H IV 06/29/24 08:00 07/01/24 00:27 25 MLS/HR Famotidine 20 mg DAILY IV 06/29/24 10:00 06/30/24 09:51 20 MG Atorvastatin Calcium 10 mg HS PO 06/29/24 22:00 06/30/24 22:08 10 MG Aspirin 81 mg DAILY PO 06/29/24 10:00 06/30/24 09:43 81 MG Diagnostic Test (Pha) 1 strip ACHS 06/29/24 07:00 06/30/24 11:29 1 STRIP Insulin Human Regular ACHS SC 06/29/24 07:00 06/29/24 12:10 3 UNITS Dextrose 50 ml UD PRN IV 06/29/24 05:15 Sodium Chloride 10 ml Q8HR IV 06/29/24 06:00 07/01/24 06:05 10 ML Acetaminophen/ Hydrocodone Bitart 1 tab Q4HP PRN PO 06/29/24 05:15 Ondansetron HCl 4 mg Q4HP PRN IV 06/29/24 05:15 Docusate Sodium 100 mg BIDPRN PRN PO 06/29/24 05:15 Acetaminophen 650 mg Q6HP PRN PO 06/29/24 05:15 Nitroglycerin 0.4 mg Q5MINP PRN SL 06/29/24 05:15 Morphine Sulfate 2 mg Q30M PRN IV 06/29/24 05:15 Enoxaparin Sodium 140 mg Q12HR SC 06/29/24 22:00 06/30/24 22:08 140 MG Ceftriaxone Sodium 50 ml @ 100 mls/hr DAILY@09 IV 07/01/24 09:00 Laboratory Results Chemistry Test 07/01/24 07:20 Albumin Pending Calcium Level Pending Total Protein Pending LFT Test 07/01/24 07:20 Alanine Aminotransferase (ALT) Pending Alkaline Phosphatase Pending Aspartate Amino Transferase (AST) Pending Total Bilirubin Pending Urinalysis Test 06/29/24 00:15 Urine Color Light-orange (Yellow) Urine Clarity Ex.turbid (Clear) Urine pH 8.5 (5.0-9.0) Urine Specific [place] 1.019 (1.001-1.035) Urine Protein 3+ (Negative) H Urine Ketones Negative (Negative) Urine Blood Trace /uL (Negative) H Urine Nitrite Negative (Negative) Urine Bilirubin Negative (Negative) Urine Urobilinogen Normal mg/dL (Negative) Urine Leukocyte Esterase 3+ /uL (Negative) Urine RBC 107 /hpf (0 - 3) Urine WBC 70 /hpf (0 - 3) Urine WBC Clumps Present /hpf (None Seen) Urine Squamous Epithelial Cells None seen /hpf (<5) Urine Calcium Oxalate Crystals Many (None Seen) Urine Triple Phosphate Crystals Mod /hpf (None Seen) Urine Bacteria Many /hpf (None Seen) H Urine Mucus Few (None Seen) Urine Glucose Normal mg/dL (Normal) Microbiology Microbiology Date/Time Source Procedure Growth Status 06/29/24 00:50 Blood Blood Culture - Preliminary NO GROWTH AFTER 48 HOURS OF INCUBATION. Resulted 06/29/24 00:15 Urine - Catheterized Urine Culture - Preliminary Resulted Labs and/or images reviewed: Labs reviewed by me, Image(s) reviewed by me Assessment/Plan Assessment/Plan Acute hypoxic respiratory failure: Oxygen by nasal cannula Septic shock elevated white count 39 K secondary to community-acquired left lower lobe pneumonia: Blood cultures negative, continue Zosyn Acute urinary tract infection: continue Rocephin Acute metabolic encephalopathy Hypercholesterolemia: Lipitor COVID test negative Flu test negative AFib with RVR: Continue Lovenox transition to Eliquis when appropriate History of stroke 2022 with left hemiplegia Chronically bed-bound Long-term indwelling catheter MIGUEL Time taken 65 minutes Patient is full code Advanced care planning time 20 minutes Morbid obesity BMI of 43 General condition poor Patient is hospice revoked Discharged from this hospital on 05/31/2024 Plan discussed with: Patient My Orders Orders - KYLEE PERRY MD Procedure Category Date Status Time Ceftriaxone 1gm/50ml PHA 07/01/24 In Process D5w (Rocephin) 09:00 Date of Service: Jul 01, 2024 Billing Provider: KYLEE PERRY MD Common Visit Codes: [id number] CARE 30-74 MIN KYLEE PERRY MD Jul 01, 2024 08:01
[2024-07-01 08:03] LABS: Basophils # (auto) 0 10 ^3/uL (0-0.2); Basophils % (auto) 0.6 % (0.0-2.0); Eosinophils # (auto) 0.4 10 ^3/uL (0-0.8); Eosinophils % (auto) 4.9 % (0.0-7.0); Hemoglobin 11.2 g/dL (13.5-17.5); Lymphocytes # (auto) 1.2 10 ^3/uL (0.4-5.4); Lymphocytes % (auto) 16.3 % (10.0-50.0); Mean Corpuscular Hemoglobin 30.4 pg (28.0-32.0); Mean Corpuscular Volume 89.4 fL (80.0-100.0); Monocytes # (auto) 0.4 10 ^3/uL (0-1.3); Monocytes % (auto) 5.8 % (0.0-12.0); Neutrophils # (auto) 5.3 10 ^3/uL (1.6-8.6); Neutrophils % (auto) 72.4 % (37.0-80.0); Nucleated Red Blood Cells % 0.1 %; Platelet Count (auto) 170 10^3/uL (140-450); Red Cell Distribution Width 14.9 % (11.8-14.3); White Blood Cell 7.3 10^3/uL (4.4-10.8)
[2024-07-01 08:06] LABS: Alkaline Phosphatase 63 U/L (46-116); Anion Gap 2 (5-15); BUN/Creatinine Ratio 25.4 (10.0-20.0); Blood Urea Nitrogen 18 mg/dL (9-23); Calcium 9.2 mg/dL (8.7-10.4); Chloride 102 mmol/L (98-107); Glucose 83 mg/dL (74-106); Potassium 4.7 mmol/L (3.5-5.1); Sodium 139 mmol/L (136-145)
[2024-07-01 08:07] LABS: Bilirubin, Total 0.8 mg/dL (0.2-1.0)
[2024-07-01 08:18] LABS: Alanine Aminotransferase < 9 U/L (7-40); Aspartate Aminotransferase 12 U/L (13-40); Carbon Dioxide 35 mmol/L (20-31)
[2024-07-01 08:38] VITALS: PULSE 90; RESP 15; O2SAT 98
[2024-07-01] MEDS: cefTRIAXone 1GM/50ML D5W 50 ML IV SCH (09:25)
[2024-07-01 15:09] VITALS: BP 109/36; PULSE 104; PULSE 93; RESP 14; RESP 18; TEMP 98.1; O2SAT 96; O2SAT 97
[2024-07-01] MEDS: PIPERACILLIN-TAZOB 3.375GM 100 ML IV SCH (16:23)
[2024-07-01 17:00] VITALS: BP 109/36; PULSE 93; RESP 14; TEMP 98.1; O2SAT 96
[2024-07-01 20:00] VITALS: PULSE 107; PULSE 76; RESP 18
[2024-07-01 21:00] VITALS: BP_SYST 109; BP_SYST 110; BP_DIAS 46; BP_DIAS 53; PULSE 89; RESP 18; TEMP 97.5; O2SAT 92; O2SAT 97
[2024-07-02] VITALS (7 sets, daily range): BP systolic 118–145; BP diastolic 52–64; PULSE 90–99; RESP 17–20; TEMP 97.4–97.8; O2SAT 94–99
--- NOTE | 2024-07-02 10:18 | ECG ---
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
--- NOTE | 2024-07-02 10:53 | DVHPN2 ---
Reviewed: Care Plan, H&P, Labs, Medications, Previous Orders, Radiology Changes from previous H/P or p: No Changes Eyes: No Pain, No Vision change, No Conjunctivae inflammation, No Eyelid inflammation, No Other, No Redness ENT: No Ear pain, No Ear discharge, No Nose pain, No Nose discharge, No Nose congestion, No Mouth pain, No Mouth swelling, No Throat pain, No Throat swelling, No Other Cardiovascular: No Chest Pain, No Palpitations, No Orthopnea, No Paroxysmal Noc. Dyspnea, No Edema, No Lt Headedness, No Other Respiratory: No Cough, No Dry, No Shortness of breath, No SOB with excertion, No Wheezing, No Hemoptysis, No Pleuritic Pain, No Sputum, No Other Gastrointestinal: Nausea, Vomiting, Abdominal Pain; No Diarrhea, No Constipation, No Melena, No Hematochezia, No Other Genitourinary: No Dysuria, No Frequency, No Incontinence, No Hematuria, No Retention; Other (Flynn catheter in place.) Musculoskeletal: No other, No neck pain, No shoulder pain, No arm pain, No back pain, No hand pain, No leg pain, No foot pain Skin: No Rash, No Lesions, No Jaundice, No Bruising, No Other Objective Vitals Vital Signs Date Time Temp Pulse Resp B/P (MAP) Pulse Ox O2 Delivery O2 Flow Rate FiO2 07/02/24 08:41 97.7 92 18 137/64 (88) 99 97.7 07/01/24 20:00 Nasal Cannula* 2 28 Intake/Output Intake and Output 07/02/24 07:00 Intake Total 930 ml Output Total 1200 ml Balance -270 ml Intake Oral 630 ml IV Total 300 ml Output Urine Total 1200 ml Medications Current Medications Medications Dose Ordered Sig/Lito Route Start Time Stop Time Status Last Admin Dose Admin Norepinephrine Bitartrate 250 ml @ 3.75 mls/hr Q24H IV 06/29/24 02:15 06/30/24 04:10 41.25 MLS/HR Famotidine 20 mg DAILY IV 06/29/24 10:00 07/02/24 09:41 20 MG Atorvastatin Calcium 10 mg HS PO 06/29/24 22:00 07/01/24 22:04 10 MG Aspirin 81 mg DAILY PO 06/29/24 10:00 07/01/24 09:58 81 MG Diagnostic Test (Pha) 1 strip ACHS 06/29/24 07:00 07/02/24 05:50 1 STRIP Insulin Human Regular ACHS SC 06/29/24 07:00 06/29/24 12:10 3 UNITS Dextrose 50 ml UD PRN IV 06/29/24 05:15 Sodium Chloride 10 ml Q8HR IV 06/29/24 06:00 07/02/24 05:49 10 ML Acetaminophen/ Hydrocodone Bitart 1 tab Q4HP PRN PO 06/29/24 05:15 Ondansetron HCl 4 mg Q4HP PRN IV 06/29/24 05:15 Docusate Sodium 100 mg BIDPRN PRN PO 06/29/24 05:15 Acetaminophen 650 mg Q6HP PRN PO 06/29/24 05:15 Nitroglycerin 0.4 mg Q5MINP PRN SL 06/29/24 05:15 Morphine Sulfate 2 mg Q30M PRN IV 06/29/24 05:15 Enoxaparin Sodium 140 mg Q12HR SC 06/29/24 22:00 07/01/24 22:04 140 MG Ceftriaxone Sodium 50 ml @ 100 mls/hr DAILY@09 IV 07/01/24 09:00 07/02/24 08:41 100 MLS/HR Piperacillin Sod/ Tazobactam Sod 100 ml @ 25 mls/hr Q6H IV 07/01/24 14:00 07/02/24 08:09 25 MLS/HR Laboratory Results Laboratory Tests 07/01/24 07:20 Urinalysis Test 06/29/24 00:15 Urine Color Light-orange (Yellow) Urine Clarity Ex.turbid (Clear) Urine pH 8.5 (5.0-9.0) Urine Specific [place] 1.019 (1.001-1.035) Urine Protein 3+ (Negative) H Urine Ketones Negative (Negative) Urine Blood Trace /uL (Negative) H Urine Nitrite Negative (Negative) Urine Bilirubin Negative (Negative) Urine Urobilinogen Normal mg/dL (Negative) Urine Leukocyte Esterase 3+ /uL (Negative) Urine RBC 107 /hpf (0 - 3) Urine WBC 70 /hpf (0 - 3) Urine WBC Clumps Present /hpf (None Seen) Urine Squamous Epithelial Cells None seen /hpf (<5) Urine Calcium Oxalate Crystals Many (None Seen) Urine Triple Phosphate Crystals Mod /hpf (None Seen) Urine Bacteria Many /hpf (None Seen) H Urine Mucus Few (None Seen) Urine Glucose Normal mg/dL (Normal) Microbiology Microbiology Date/Time Source Procedure Growth Status 06/29/24 00:50 Blood Blood Culture - Preliminary NO GROWTH AFTER 72 HOURS OF INCUBATION. Resulted 06/29/24 00:15 Urine - Catheterized Urine Culture - Preliminary Resulted Labs and/or images reviewed: Labs reviewed by me, Image(s) reviewed by me Assessment/Plan Assessment/Plan Acute hypoxic respiratory failure: Oxygen by nasal cannula Septic shock elevated white count 39 K secondary to community-acquired left lower lobe pneumonia: Blood cultures negative, continue Zosyn Acute urinary tract infection: continue Rocephin urine cultures growing Enterococcus species, will change antibiotic after the final culture result Acute metabolic encephalopathy Hypercholesterolemia: Lipitor COVID test negative Flu test negative AFib with RVR: Continue Lovenox transition to Eliquis when appropriate History of stroke 2022 with left hemiplegia Chronically bed-bound Long-term indwelling catheter MIGUEL Time taken 65 minutes Patient is full code Morbid obesity BMI of 43 General condition poor Patient is hospice revoked Discharged from this hospital on 05/31/2024 Daughter : October [phone] Plan discussed with: Patient My Orders Orders - KYLEE PERRY MD Procedure Category Date Status Time * Wound Consult CONS 07/01/24 Transmitted Date of Service: Jul 02, 2024 Billing Provider: KYLEE PERRY MD Common Visit Codes: [id number] CARE 30-74 MIN KYLEE PERRY MD Jul 02, 2024 10:53
[2024-07-03] VITALS (8 sets, daily range): BP systolic 117–138; BP diastolic 47–61; PULSE 84–110; RESP 17–19; TEMP 97.7–98.8; O2SAT 91–96
--- NOTE | 2024-07-03 11:10 | DVHPN2 ---
Reviewed: Care Plan, H&P, Labs, Medications, Previous Orders, Radiology Changes from previous H/P or p: No Changes Eyes: No Pain, No Vision change, No Conjunctivae inflammation, No Eyelid inflammation, No Other, No Redness ENT: No Ear pain, No Ear discharge, No Nose pain, No Nose discharge, No Nose congestion, No Mouth pain, No Mouth swelling, No Throat pain, No Throat swelling, No Other Cardiovascular: No Chest Pain, No Palpitations, No Orthopnea, No Paroxysmal Noc. Dyspnea, No Edema, No Lt Headedness, No Other Respiratory: No Cough, No Dry, No Shortness of breath, No SOB with excertion, No Wheezing, No Hemoptysis, No Pleuritic Pain, No Sputum, No Other Gastrointestinal: Nausea, Vomiting, Abdominal Pain; No Diarrhea, No Constipation, No Melena, No Hematochezia, No Other Genitourinary: No Dysuria, No Frequency, No Incontinence, No Hematuria, No Retention; Other (Flynn catheter in place.) Musculoskeletal: No other, No neck pain, No shoulder pain, No arm pain, No back pain, No hand pain, No leg pain, No foot pain Skin: No Rash, No Lesions, No Jaundice, No Bruising, No Other Objective Vitals Vital Signs Date Time Temp Pulse Resp B/P (MAP) Pulse Ox O2 Delivery O2 Flow Rate FiO2 07/03/24 08:46 98.3 102 18 138/51 (80) 94 98.3 07/02/24 20:00 Nasal Cannula* 2 28 Intake/Output Intake and Output 07/03/24 07:00 Intake Total 2250 ml Output Total 1220 ml Balance 1030 ml Intake Oral 2000 ml IV Total 250 ml Output Urine Total 1220 ml Medications Current Medications Medications Dose Ordered Sig/Lito Route Start Time Stop Time Status Last Admin Dose Admin Norepinephrine Bitartrate 250 ml @ 3.75 mls/hr Q24H IV 06/29/24 02:15 06/30/24 04:10 41.25 MLS/HR Famotidine 20 mg DAILY IV 06/29/24 10:00 07/03/24 10:57 20 MG Atorvastatin Calcium 10 mg HS PO 06/29/24 22:00 07/02/24 21:21 10 MG Aspirin 81 mg DAILY PO 06/29/24 10:00 07/03/24 10:58 81 MG Sodium Chloride 10 ml Q8HR IV 06/29/24 06:00 07/03/24 06:14 10 ML Acetaminophen/ Hydrocodone Bitart 1 tab Q4HP PRN PO 06/29/24 05:15 Ondansetron HCl 4 mg Q4HP PRN IV 06/29/24 05:15 Docusate Sodium 100 mg BIDPRN PRN PO 06/29/24 05:15 Acetaminophen 650 mg Q6HP PRN PO 06/29/24 05:15 Nitroglycerin 0.4 mg Q5MINP PRN SL 06/29/24 05:15 Morphine Sulfate 2 mg Q30M PRN IV 06/29/24 05:15 Enoxaparin Sodium 140 mg Q12HR SC 06/29/24 22:00 07/03/24 10:58 140 MG Ceftriaxone Sodium 50 ml @ 100 mls/hr DAILY@09 IV 07/01/24 09:00 07/03/24 09:08 100 MLS/HR Piperacillin Sod/ Tazobactam Sod 100 ml @ 25 mls/hr Q6H IV 07/01/24 14:00 07/03/24 09:05 25 MLS/HR Laboratory Results Laboratory Tests 07/01/24 07:20 Urinalysis Test 06/29/24 00:15 Urine Color Light-orange (Yellow) Urine Clarity Ex.turbid (Clear) Urine pH 8.5 (5.0-9.0) Urine Specific [place] 1.019 (1.001-1.035) Urine Protein 3+ (Negative) H Urine Ketones Negative (Negative) Urine Blood Trace /uL (Negative) H Urine Nitrite Negative (Negative) Urine Bilirubin Negative (Negative) Urine Urobilinogen Normal mg/dL (Negative) Urine Leukocyte Esterase 3+ /uL (Negative) Urine RBC 107 /hpf (0 - 3) Urine WBC 70 /hpf (0 - 3) Urine WBC Clumps Present /hpf (None Seen) Urine Squamous Epithelial Cells None seen /hpf (<5) Urine Calcium Oxalate Crystals Many (None Seen) Urine Triple Phosphate Crystals Mod /hpf (None Seen) Urine Bacteria Many /hpf (None Seen) H Urine Mucus Few (None Seen) Urine Glucose Normal mg/dL (Normal) Microbiology Microbiology Date/Time Source Procedure Growth Status 06/29/24 00:50 Blood Blood Culture - Preliminary NO GROWTH AFTER 72 HOURS OF INCUBATION. Resulted 06/29/24 00:15 Urine - Catheterized Urine Culture - Final Proteus mirabilis Enterococcus faecalis Complete Labs and/or images reviewed: Labs reviewed by me, Image(s) reviewed by me Assessment/Plan Assessment/Plan Acute hypoxic respiratory failure: Oxygen by nasal cannula Septic shock elevated white count 39 K secondary to community-acquired left lower lobe pneumonia: Blood cultures negative, continue Zosyn Acute urinary tract infection with Proteus mirabilis, continue Rocephin, also growing E faecalis start Zyvox Acute metabolic encephalopathy Hypercholesterolemia: Lipitor COVID test negative Flu test negative AFib with RVR: Started on Lovenox transitioned to Eliquis History of stroke 2022 with left hemiplegia Chronically bed-bound Long-term indwelling catheter MIGUEL Stage 2 sacral decubitus ulcer present on admission Morbid obesity BMI 43 Patient is hospice revoked Discharged from this hospital on 05/31/2024 Spoke to Daughter : October [phone] on the phone and she is agreeable for the patient to be discharged to [facility] facility for three weeks of IV antibiotics for UTI Plan discussed with: Patient My Orders Orders - KYLEE PERRY MD Procedure Category Date Status Time Ok To Change Flynn ORDERS 07/02/24 Transmitted 11:05 Dietary NOTICE 07/02/24 Transmitted Recommendations 12:58 Pt Request For Service PT 07/03/24 Logged 10:48 Insert Midline ORDERS 07/03/24 Transmitted 10:56 Insert Midline ORDERS 07/03/24 Transmitted 11:02 * Cloth Finishing Range Back Tender CONS 07/03/24 Transmitted Consult Date of Service: Jul 03, 2024 Billing Provider: KYLEE PERRY MD Common Visit Codes: [id number] INP/OBS CARE(HIGH) KYLEE PERRY MD Jul 03, 2024 11:10
[2024-07-03] MEDS: METOPROLOL TARTRATE 25 MG TAB PO SCH (17:40)
[2024-07-03] MEDS: APIXABAN 5 MG TAB PO SCH (22:45)
[2024-07-03] MEDS: LINEZOLID 600MG/300ML 300 ML IV SCH (22:57)
[2024-07-04] VITALS (8 sets, daily range): BP systolic 109–124; BP diastolic 44–56; PULSE 80–90; RESP 18–21; TEMP 97.8–98.8; O2SAT 91–94
[2024-07-04 06:38] LABS: Basophils # (auto) 0 10 ^3/uL (0-0.2); Basophils % (auto) 0.6 % (0.0-2.0); Eosinophils # (auto) 0.1 10 ^3/uL (0-0.8); Eosinophils % (auto) 2.8 % (0.0-7.0); Hematocrit 34.1 % (41.0-53.0); Hemoglobin 11.6 g/dL (13.5-17.5); Lymphocytes # (auto) 0.5 10 ^3/uL (0.4-5.4); Lymphocytes % (auto) 11.4 % (10.0-50.0); Mean Corpuscular Hemoglobin 30.2 pg (28.0-32.0); Mean Corpuscular Hgb Conc. 33.9 g/dL (32.0-36.0); Mean Corpuscular Volume 88.9 fL (80.0-100.0); Monocytes # (auto) 0.5 10 ^3/uL (0-1.3); Monocytes % (auto) 10.5 % (0.0-12.0); Neutrophils # (auto) 3.6 10 ^3/uL (1.6-8.6); Neutrophils % (auto) 74.7 % (37.0-80.0); Nucleated Red Blood Cells % 0.1 %; Platelet Count (auto) 140 10^3/uL (140-450); Red Blood Cells 3.83 10^6/uL (4.5-5.90); Red Cell Distribution Width 14.7 % (11.8-14.3); White Blood Cell 4.8 10^3/uL (4.4-10.8)
[2024-07-04 06:47] LABS: Calcium 9.3 mg/dL (8.7-10.4); Chloride 100 mmol/L (98-107)
[2024-07-04 06:48] LABS: Anion Gap 2 (5-15); Carbon Dioxide 34 mmol/L (20-31); Sodium 136 mmol/L (136-145)
[2024-07-04 06:53] LABS: BUN/Creatinine Ratio 16.9 (10.0-20.0); Blood Urea Nitrogen 11 mg/dL (9-23)
[2024-07-04 06:57] LABS: Glucose 98 mg/dL (74-106)
--- NOTE | 2024-07-04 08:19 | DVHDS2 ---
Discharge Summary Date of Admission Jun 29, 2024 at 05:15 Date of Discharge: Jul 04, 2024 Admitting Diagnosis Shortness of breath Wounds: Stage III decubitus ulcer sacrum Labs/Diagnostic Data: Laboratory Results Test 07/04/24 04:52 07/03/24 17:39 07/01/24 07:20 06/29/24 05:48 White Blood Count 4.8 10^3/uL (4.4-10.8) Red Blood Count 3.83 10^6/uL (4.5-5.90) Hemoglobin 11.6 g/dL (13.5-17.5) Hematocrit 34.1 % (41.0-53.0) Mean Corpuscular Volume 88.9 fL (80.0-100.0) Mean Corpuscular Hemoglobin 30.2 pg (28.0-32.0) Mean Corpuscular Hemoglobin Concent 33.9 g/dL (32.0-36.0) Red Cell Distribution Width 14.7 % (11.8-14.3) Platelet Count 140 10^3/uL (140-450) Mean Platelet Volume 8.1 fL (6.9-10.8) Neutrophils (%) (Auto) 74.7 % (37.0-80.0) Lymphocytes (%) (Auto) 11.4 % (10.0-50.0) Monocytes (%) (Auto) 10.5 % (0.0-12.0) Eosinophils (%) (Auto) 2.8 % (0.0-7.0) Basophils (%) (Auto) 0.6 % (0.0-2.0) Neutrophils # (Auto) 3.6 10 ^3/uL (1.6-8.6) Lymphocytes # (Auto) 0.5 10 ^3/uL (0.4-5.4) Monocytes # (Auto) 0.5 10 ^3/uL (0-1.3) Eosinophils # (Auto) 0.1 10 ^3/uL (0-0.8) Basophils # (Auto) 0 10 ^3/uL (0-0.2) Nucleated Red Blood Cells 0.1 % Sodium Level 136 mmol/L (136-145) Potassium Level 4.0 mmol/L (3.5-5.1) Chloride Level 100 mmol/L (98-107) Carbon Dioxide Level 34 mmol/L (20-31) Anion Gap 2 (5-15) Blood Urea Nitrogen 11 mg/dL (9-23) Creatinine 0.65 mg/dL (0.700-1.30) Glomerular Filtration Rate Calc 102 mL/min (>90) BUN/Creatinine Ratio 16.9 (10.0-20.0) Serum Glucose 98 mg/dL (74-106) Calcium Level 9.3 mg/dL (8.7-10.4) POC Glucose 125 mg/dl (70-106) Lactic Acid Level 0.6 mmol/L (0.4-2.0) Total Bilirubin 0.8 mg/dL (0.2-1.0) Aspartate Amino Transferase (AST) 12 U/L (13-40) Alanine Aminotransferase (ALT) < 9 U/L (7-40) Alkaline Phosphatase 63 U/L (46-116) Total Protein 6.0 g/dL (5.7-8.2) Albumin 3.0 g/dL (3.2-4.8) Differential Total Cells Counted 100.0 (100) Neutrophils % (Manual) 93 (37.0-80.0) Band Neutrophils % (Manual) 3 Lymphocytes % (Manual) 2 (10.0-50.0) Monocytes % (Manual) 2 (0-12) Eosinophils % (Manual) 0 (0-7) Basophils % (Manual) 0 (0.0-2.0) Metamyelocytes % (manual) 0 Myelocytes % (Manual) 0 Promyelocytes % (Manual) 0 Blast Cells % (Manual) 0 Reactive Lymphocytes 0 Platelet Estimate Adequate Test 06/29/24 00:22 06/29/24 00:20 06/29/24 00:15 06/28/24 23:32 Influenza Type A Antigen Negative (Negative) Influenza Type B Antigen Negative (Negative) SARS-CoV-2 Antigen (Rapid) Negative (NEGATIVE) Troponin I High Sensitivity 5 ng/L (</=54) Urine Color Light-orange (Yellow) Urine Clarity Ex.turbid (Clear) Urine pH 8.5 (5.0-9.0) Urine Specific [place] 1.019 (1.001-1.035) Urine Protein 3+ (Negative) Urine Ketones Negative (Negative) Urine Blood Trace /uL (Negative) Urine Nitrite Negative (Negative) Urine Bilirubin Negative (Negative) Urine Urobilinogen Normal mg/dL (Negative) Urine Leukocyte Esterase 3+ /uL (Negative) Urine RBC 107 /hpf (0 - 3) Urine WBC 70 /hpf (0 - 3) Urine WBC Clumps Present /hpf (None Seen) Urine Squamous Epithelial Cells None seen /hpf (<5) Urine Calcium Oxalate Crystals Many (None Seen) Urine Triple Phosphate Crystals Mod /hpf (None Seen) Urine Bacteria Many /hpf (None Seen) Urine Mucus Few (None Seen) Urine Glucose Normal mg/dL (Normal) Prothrombin Time 12.7 sec (9.3-11.8) Prothrombin Time INR 1.22 (0.9-1.15) Activated Partial Thromboplast Time 30.8 SEC (24.5-34.5) Magnesium Level 1.6 mg/dL (1.6-2.6) B-Type Natriuretic Peptide 103.46 pg/mL (0-100) Other Laboratory Tests 07/04/24 04:52 Brief Hx & Hospital Course: 69-year-old morbidly obese with a BMI of 49 on hospice with multiple medical problems including hypertension hypercholesterolemia AFib with RVR history of stroke 2022 left hemiplegia chronically bed-bound long-term indwelling catheter stage II sacral decubitus ulcer present on admission came in for shortness of breath. Patient was not sepsis with the elevated white count of 39 K secondary to community-acquired left lower lobe pneumonia treated with the Zosyn blood cultures negative patient also had acute urinary tract infection 80 Proteus mirabilis placed on Rocephin also E faecalis started on Zyvox. AFib with a RVR seen by Cardiology Dr. Mclaughlin started on Lovenox therapeutic converted to Eliquis. Also placed on metoprolol. Echo 55 percent ejection fraction. DVT ruled out. Patient is hospice revoked discussed with the patient and his daughter October [phone] and they agreed the patient to go to long term facility for three weeks of IV antibiotics with Rocephin and Zyvox. General condition poor at the time of discharge but stable. Patient is hospice revoked Consults/Reason for consult Cardiology Dr. Mclaughlin Operations or Procedures None Condition at Discharge: Fair Final Diagnosis/Problems List Acute hypoxic respiratory failure: Oxygen by nasal cannula Septic shock elevated white count 39 K secondary to community-acquired left lower lobe pneumonia: Blood cultures negative, continue Rocephin Acute urinary tract infection with Proteus mirabilis, continue Rocephin, also growing E faecalis start Zyvox Acute metabolic encephalopathy Hypercholesterolemia: Lipitor COVID test negative Flu test negative AFib with RVR: Started on Lovenox transitioned to Eliquis History of stroke 2022 with left hemiplegia Chronically bed-bound Long-term indwelling catheter MIGUEL Stage 2 sacral decubitus ulcer present on admission Morbid obesity BMI 43 Discharge Disposition: [facility] Facility Discharge Instruct/Medications Diet: Cardiac 2g Na,low cholest Activity: Bed rest Follow Up/Referral: f/u with [facility] doctor Medications: Rocephin 1 gm iv daily for 3 weeks Zyvox 600 mg iv bid for 3 weeks see list for other meds 39 (Time taken for discharge summary 39 minutes) Discharge Statement: "Patient was advised to return to the ER or call 911 if any headaches, dizziness, shortness of breath, chest pain, abdominal pain, bleeding, fevers, or worsening of medical condition. Patient was counseled about treatment plan, medications, possible side effects, patientverbalized understanding. All questions were answered to the best of my ability. This discharge took greater then 30 minutes in planning, reviewing documentation, counseling the patient, and discussing with other team members." ASSESSMENT ASSESSMENT Hospital Course Marginal improvement Assessment Acute hypoxic respiratory failure: Oxygen by nasal cannula Septic shock elevated white count 39 K secondary to community-acquired left lower lobe pneumonia: Blood cultures negative, continue Rocephin Acute urinary tract infection with Proteus mirabilis, continue Rocephin, also growing E faecalis start Zyvox Acute metabolic encephalopathy Hypercholesterolemia: Lipitor COVID test negative Flu test negative AFib with RVR: Started on Lovenox transitioned to Eliquis History of stroke 2022 with left hemiplegia Chronically bed-bound Long-term indwelling catheter MIGUEL Stage 2 sacral decubitus ulcer present on admission Morbid obesity BMI 43 Date of Service: Jul 04, 2024 Billing Provider: KYLEE PERRY MD Common Visit Codes: [id number] DISCH DAY >30min KYLEE PERRY MD Jul 04, 2024 08:19
--- NOTE | 2024-07-04 11:33 | DVHPN2 ---
Reviewed: Care Plan, H&P, Labs, Medications, Previous Orders, Radiology Changes from previous H/P or p: No Changes Eyes: No Pain, No Vision change, No Conjunctivae inflammation, No Eyelid inflammation, No Other, No Redness ENT: No Ear pain, No Ear discharge, No Nose pain, No Nose discharge, No Nose congestion, No Mouth pain, No Mouth swelling, No Throat pain, No Throat swelling, No Other Cardiovascular: No Chest Pain, No Palpitations, No Orthopnea, No Paroxysmal Noc. Dyspnea, No Edema, No Lt Headedness, No Other Respiratory: No Cough, No Dry, No Shortness of breath, No SOB with excertion, No Wheezing, No Hemoptysis, No Pleuritic Pain, No Sputum, No Other Gastrointestinal: Nausea, Vomiting, Abdominal Pain; No Diarrhea, No Constipation, No Melena, No Hematochezia, No Other Genitourinary: No Dysuria, No Frequency, No Incontinence, No Hematuria, No Retention; Other (Flynn catheter in place.) Musculoskeletal: No other, No neck pain, No shoulder pain, No arm pain, No back pain, No hand pain, No leg pain, No foot pain Skin: No Rash, No Lesions, No Jaundice, No Bruising, No Other Objective Vitals Vital Signs Date Time Temp Pulse Resp B/P (MAP) Pulse Ox O2 Delivery O2 Flow Rate FiO2 07/04/24 10:57 80 07/04/24 10:21 110/52 07/04/24 08:49 98.8 18 92 98.8 07/04/24 08:00 Nasal Cannula* 2 28 Intake/Output Intake and Output 07/04/24 07:00 Intake Total 1190 ml Output Total 950 ml Balance 240 ml Intake Oral 840 ml IV Total 350 ml Output Urine Total 950 ml # Bowel Movements 1 Medications Current Medications Medications Dose Ordered Sig/Lito Route Start Time Stop Time Status Last Admin Dose Admin Famotidine 20 mg DAILY IV 06/29/24 10:00 07/04/24 10:17 20 MG Atorvastatin Calcium 10 mg HS PO 06/29/24 22:00 07/03/24 22:46 10 MG Aspirin 81 mg DAILY PO 06/29/24 10:00 07/04/24 10:21 81 MG Sodium Chloride 10 ml Q8HR IV 06/29/24 06:00 07/04/24 05:04 10 ML Acetaminophen/ Hydrocodone Bitart 1 tab Q4HP PRN PO 06/29/24 05:15 Ondansetron HCl 4 mg Q4HP PRN IV 06/29/24 05:15 Docusate Sodium 100 mg BIDPRN PRN PO 06/29/24 05:15 Acetaminophen 650 mg Q6HP PRN PO 06/29/24 05:15 Nitroglycerin 0.4 mg Q5MINP PRN SL 06/29/24 05:15 Morphine Sulfate 2 mg Q30M PRN IV 06/29/24 05:15 Ceftriaxone Sodium 50 ml @ 100 mls/hr DAILY@09 IV 07/01/24 09:00 07/04/24 10:13 100 MLS/HR Apixaban 10 mg BID PO 07/03/24 22:00 07/09/24 21:59 07/04/24 10:21 10 MG Apixaban 5 mg BID PO 07/09/24 22:00 Metoprolol Tartrate 25 mg BID PO 07/03/24 17:07 07/04/24 10:21 25 MG Linezolid 300 ml @ 150 mls/hr Q12HR IV 07/03/24 22:00 07/04/24 10:15 150 MLS/HR Laboratory Results Laboratory Tests 07/04/24 04:52 Chemistry Test 07/04/24 04:52 Calcium Level 9.3 mg/dL (8.7-10.4) Urinalysis Test 06/29/24 00:15 Urine Color Light-orange (Yellow) Urine Clarity Ex.turbid (Clear) Urine pH 8.5 (5.0-9.0) Urine Specific [place] 1.019 (1.001-1.035) Urine Protein 3+ (Negative) H Urine Ketones Negative (Negative) Urine Blood Trace /uL (Negative) H Urine Nitrite Negative (Negative) Urine Bilirubin Negative (Negative) Urine Urobilinogen Normal mg/dL (Negative) Urine Leukocyte Esterase 3+ /uL (Negative) Urine RBC 107 /hpf (0 - 3) Urine WBC 70 /hpf (0 - 3) Urine WBC Clumps Present /hpf (None Seen) Urine Squamous Epithelial Cells None seen /hpf (<5) Urine Calcium Oxalate Crystals Many (None Seen) Urine Triple Phosphate Crystals Mod /hpf (None Seen) Urine Bacteria Many /hpf (None Seen) H Urine Mucus Few (None Seen) Urine Glucose Normal mg/dL (Normal) Microbiology Microbiology Date/Time Source Procedure Growth Status 06/29/24 00:50 Blood Blood Culture - Final NO GROWTH AFTER 5 DAYS OF INCUBATION. Complete 06/29/24 00:15 Urine - Catheterized Urine Culture - Final Proteus mirabilis Enterococcus faecalis Complete Labs and/or images reviewed: Labs reviewed by me, Image(s) reviewed by me Assessment/Plan Assessment/Plan Acute hypoxic respiratory failure: Oxygen by nasal cannula Septic shock elevated white count 39 K secondary to community-acquired left lower lobe pneumonia: Blood cultures negative, continue Zosyn Acute urinary tract infection with Proteus mirabilis, continue Rocephin, also growing E faecalis start Zyvox Acute metabolic encephalopathy Hypercholesterolemia: Lipitor COVID test negative Flu test negative AFib with RVR: Started on Lovenox transitioned to Eliquis History of stroke 2022 with left hemiplegia Chronically bed-bound Long-term indwelling catheter MIGUEL Stage 2 sacral decubitus ulcer present on admission Morbid obesity BMI 43 Patient is hospice revoked Discharged from this hospital on 05/31/2024 Spoke to Daughter : October [phone] on the phone and she is agreeable for the patient to be discharged to custodial facility for three weeks of IV antibiotics for UTI Patient awaiting bed at [facility]. Plan discussed with: Patient My Orders Orders - KYLEE PERRY MD Procedure Category Date Status Time Apixaban (Eliquis) PHA 07/09/24 In Process 22:00 Linezolid 600mg/300ml PHA 07/03/24 In Process (Zyvox) 22:00 * Teacher'S Aide CONS 07/03/24 Transmitted Consult 20:25 * Teacher'S Aide CONS 07/03/24 Transmitted Consult Cleanse Wound With ZOE 07/03/24 In Process Mild Soap A 17:25 Discharge DISCHARGE 07/04/24 Transmitted 07:55 * Teacher'S Aide CONS 07/04/24 Transmitted Consult Date of Service: Jul 04, 2024 Billing Provider: KYLEE PERRY MD Common Visit Codes: [id number] INP/OBS CARE(HIGH) KYLEE PERRY MD Jul 04, 2024 11:33
[2024-07-05 01:00] VITALS: BP 110/54; PULSE 88; RESP 19; TEMP 98; O2SAT 94
[2024-07-05 04:44] VITALS: BP 112/42; PULSE 72; RESP 17; TEMP 98; O2SAT 92
[2024-07-05 09:00] VITALS: BP 103/41; PULSE 78; RESP 20; TEMP 97.9; O2SAT 90
--- NOTE | 2024-07-05 12:04 | DVHPN2 ---
Reviewed: Care Plan, H&P, Labs, Medications, Previous Orders, Radiology Changes from previous H/P or p: No Changes Eyes: No Pain, No Vision change, No Conjunctivae inflammation, No Eyelid inflammation, No Other, No Redness ENT: No Ear pain, No Ear discharge, No Nose pain, No Nose discharge, No Nose congestion, No Mouth pain, No Mouth swelling, No Throat pain, No Throat swelling, No Other Cardiovascular: No Chest Pain, No Palpitations, No Orthopnea, No Paroxysmal Noc. Dyspnea, No Edema, No Lt Headedness, No Other Respiratory: No Cough, No Dry, No Shortness of breath, No SOB with excertion, No Wheezing, No Hemoptysis, No Pleuritic Pain, No Sputum, No Other Gastrointestinal: Nausea, Vomiting, Abdominal Pain; No Diarrhea, No Constipation, No Melena, No Hematochezia, No Other Genitourinary: No Dysuria, No Frequency, No Incontinence, No Hematuria, No Retention; Other (Flynn catheter in place.) Musculoskeletal: No other, No neck pain, No shoulder pain, No arm pain, No back pain, No hand pain, No leg pain, No foot pain Skin: No Rash, No Lesions, No Jaundice, No Bruising, No Other Objective Vitals Vital Signs Date Time Temp Pulse Resp B/P (MAP) Pulse Ox O2 Delivery O2 Flow Rate FiO2 07/05/24 10:00 78 103/41 07/05/24 09:00 97.9 20 90 97.9 07/05/24 08:00 Nasal Cannula* 2 28 Intake/Output Intake and Output 07/05/24 07:00 Intake Total 1600 ml Output Total 1200 ml Balance 400 ml Intake Oral 950 ml IV Total 650 ml Output Urine Total 1200 ml # Bowel Movements 1 Medications Current Medications Medications Dose Ordered Sig/Lito Route Start Time Stop Time Status Last Admin Dose Admin Famotidine 20 mg DAILY IV 06/29/24 10:00 07/05/24 10:13 20 MG Atorvastatin Calcium 10 mg HS PO 06/29/24 22:00 07/04/24 23:12 10 MG Aspirin 81 mg DAILY PO 06/29/24 10:00 07/05/24 10:14 81 MG Sodium Chloride 10 ml Q8HR IV 06/29/24 06:00 07/05/24 05:47 10 ML Acetaminophen/ Hydrocodone Bitart 1 tab Q4HP PRN PO 06/29/24 05:15 Ondansetron HCl 4 mg Q4HP PRN IV 06/29/24 05:15 Docusate Sodium 100 mg BIDPRN PRN PO 06/29/24 05:15 Acetaminophen 650 mg Q6HP PRN PO 06/29/24 05:15 Nitroglycerin 0.4 mg Q5MINP PRN SL 06/29/24 05:15 Morphine Sulfate 2 mg Q30M PRN IV 06/29/24 05:15 Ceftriaxone Sodium 50 ml @ 100 mls/hr DAILY@09 IV 07/01/24 09:00 07/05/24 10:13 100 MLS/HR Apixaban 10 mg BID PO 07/03/24 22:00 07/09/24 21:59 07/05/24 10:14 10 MG Apixaban 5 mg BID PO 07/09/24 22:00 Metoprolol Tartrate 25 mg BID PO 07/03/24 17:07 07/04/24 23:13 25 MG Linezolid 300 ml @ 150 mls/hr Q12HR IV 07/03/24 22:00 07/05/24 11:29 150 MLS/HR Laboratory Results Laboratory Tests 07/04/24 04:52 Urinalysis Test 06/29/24 00:15 Urine Color Light-orange (Yellow) Urine Clarity Ex.turbid (Clear) Urine pH 8.5 (5.0-9.0) Urine Specific [place] 1.019 (1.001-1.035) Urine Protein 3+ (Negative) H Urine Ketones Negative (Negative) Urine Blood Trace /uL (Negative) H Urine Nitrite Negative (Negative) Urine Bilirubin Negative (Negative) Urine Urobilinogen Normal mg/dL (Negative) Urine Leukocyte Esterase 3+ /uL (Negative) Urine RBC 107 /hpf (0 - 3) Urine WBC 70 /hpf (0 - 3) Urine WBC Clumps Present /hpf (None Seen) Urine Squamous Epithelial Cells None seen /hpf (<5) Urine Calcium Oxalate Crystals Many (None Seen) Urine Triple Phosphate Crystals Mod /hpf (None Seen) Urine Bacteria Many /hpf (None Seen) H Urine Mucus Few (None Seen) Urine Glucose Normal mg/dL (Normal) Microbiology Microbiology Date/Time Source Procedure Growth Status 07/03/24 12:00 Nose MRSA Screen - Final Complete 06/29/24 00:50 Blood Blood Culture - Final NO GROWTH AFTER 5 DAYS OF INCUBATION. Complete 06/29/24 00:15 Urine - Catheterized Urine Culture - Final Proteus mirabilis Enterococcus faecalis Complete Labs and/or images reviewed: Labs reviewed by me, Image(s) reviewed by me Assessment/Plan Assessment/Plan Acute hypoxic respiratory failure: Oxygen by nasal cannula Septic shock elevated white count 39 K secondary to community-acquired left lower lobe pneumonia: Blood cultures negative, continue Zosyn Acute urinary tract infection with Proteus mirabilis, continue Rocephin, also growing E faecalis start Zyvox Acute metabolic encephalopathy Hypercholesterolemia: Lipitor COVID test negative Flu test negative AFib with RVR: Started on Lovenox transitioned to Eliquis History of stroke 2022 with left hemiplegia Chronically bed-bound Long-term indwelling catheter MIGUEL Stage 2 sacral decubitus ulcer present on admission Morbid obesity BMI 43 Patient is hospice revoked Discharged from this hospital on 05/31/2024 Spoke to Daughter : October [phone] on the phone and she is agreeable for the patient to be discharged to care home facility for three weeks of IV antibiotics for UTI Patient awaiting transportation by bariatric transport [facility] Plan discussed with: Patient Date of Service: Jul 05, 2024 Billing Provider: KYLEE PERRY MD Common Visit Codes: [id number] INP/OBS CARE(HIGH) KYLEE PERRY MD Jul 05, 2024 12:04
[2024-07-09] MEDS ORDERED: APIXABAN 5 MG TAB PO SCH (22:00)
== END 2024-07-05 14:14 | DRG 871 ==
LOC: ER 22:50 → EDBD 22:50 → OVERFLOW 06-29 05:15 → TELE-WESTW 07-01 15:08
PROVIDERS: ADMIT Nurse Practitioner Family; ATTEND Family Medicine
PROC: 02HV33Z Insertion of Infusion Device into Superior Vena Cava, Percutaneous Approach (ICD-10-PCS; 2024-06-29)
PROC: 05HD33Z Insertion of Infusion Device into Right Cephalic Vein, Percutaneous Approach (ICD-10-PCS; principal; 2024-07-03)
PROC: B54MZZA Ultrasonography of Right Upper Extremity Veins, Guidance (ICD-10-PCS; 2024-07-03)
DX: A41.9 Sepsis, unspecified organism (principal); G93.41 Metabolic encephalopathy; J96.01 Acute respiratory failure with hypoxia; J96.02 Acute respiratory failure with hypercapnia; R65.21 Severe sepsis with septic shock; J18.9 Pneumonia, unspecified organism; T83.511A Infection and inflammatory reaction due to indwelling urethral catheter, initial encounter; L03.114 Cellulitis of left upper limb; N17.9 Acute kidney failure, unspecified; I13.0 Hypertensive heart and chronic kidney disease with heart failure and stage 1 through stage 4 chronic kidney disease, or unspecified chronic kidney disease; I69.354 Hemiplegia and hemiparesis following cerebral infarction affecting left non-dominant side; Z68.41 Body mass index [BMI] 40.0-44.9, adult; Z20.822 Contact with and (suspected) exposure to COVID-19; E66.01 Morbid (severe) obesity due to excess calories; E78.00 Pure hypercholesterolemia, unspecified; I48.91 Unspecified atrial fibrillation; N30.90 Cystitis, unspecified without hematuria; N18.9 Chronic kidney disease, unspecified; I50.9 Heart failure, unspecified; E11.22 Type 2 diabetes mellitus with diabetic chronic kidney disease; L89.152 Pressure ulcer of sacral region, stage 2; Z74.01 Bed confinement status; Z79.01 Long term (current) use of anticoagulants; Y84.8 Other medical procedures as the cause of abnormal reaction of the patient, or of later complication, without mention of misadventure at the time of the procedure; Y92.89 Other specified places as the place of occurrence of the external cause
CPT/HCPCS: 36415; 36556; 71045; 80048; 80053; 81001; 82962; 83605; 83735; 83880; 84484; 85007; 85025; 85027; 85610; 85730; 87040; 87081; 87086; 87088; 87186; 87426; 87804; 93306; 93971; 97110; 97163; 97530; 99291; G0378; J1815; J2543; J3490

== ENCOUNTER 2024-10-25 10:42 | Emergency (ER) | payer MEDICARE, MEDICAID ==
[~2024-10-25] VITALS: Ht 167.6 cm; Wt 181.9 kg
--- NOTE | 2024-10-25 11:12 | ED.PDOC ---
History of Present Illness HPI Comments 69M BIBA w/ no prior Hx associated to the c/c of Cough. EMS report that they were called out from Dr. 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 EMS state that the pt is currently on 2L NC of O2, and is bed written due from the weight. PMHx of Skin Cancer on the Nose, CVA, CHF, AFIB, High Lipids, UTI, MIGUEL, PNA, GERD, HTN and DM. Denies chills, fever, N/V/D, SOB, CP or no other associated symptoms, modifiers, recent injuries or sick contacts at this time. Chief Complaint: Cough Time Seen by MD: 10:55 Primary Care Provider: UNKNOWN Reviewed Notes: Nurses Notes, Supervisor Money Room Notes, Medications, Allergies Allergies: Uncoded Allergies: orang peel (Adverse Reaction, Intermediate, rash, lip breaks, 06/29/24) Home Meds Active Scripts Cefpodoxime Proxetil (Cefpodoxime Proxetil) 200 Mg Tab, 1 TAB PO BID for 21 Days, #42 TAB Prov:JULIANO GOMEZ RESIDENT 02/13/24 Carvedilol (COREG) 3.125 Mg Tab, 3.125 MG PO Q12HR for 30 Days, #60 TAB Prov:JULIANO GOMEZ RESIDENT 02/13/24 Atorvastatin Calcium (ATORVASTATIN CALCIUM) 20 Mg Tab, 40 MG PO HS for 30 Days, #60 TAB 2 Refills Prov:JULIANO GOMEZ [facility] 02/13/24 Aspirin (Aspirin Low Dose) 81 Mg Tab, 81 MG PO DAILY for 30 Days, #30 TAB 2 Refills Prov:JULIANO GOMEZ RESIDENT 02/13/24 Information Source: Patient, Emergency Med Personnel Mode of Arrival: EMS Severity: Moderate Timing: Hours Duration: Since onset, Hours Prehospital treatment: None Past Medical History PAST MEDICAL HISTORY: AFIB, CHF, CVA, DM, GERD, High Lipids, HTN, UTI'S Past Medical History (Other): MIGUEL, PNA Surgical History: Denies all surgeries Family History Family History: Reviewed,noncontributory to illness, Unknown Social History Smoker: Non-Smoker Alcohol: Denies ETOH Use Drugs: Denies Drug Use Lives In: Assisted Care Constitutional: denies: chills, diaphoresis, fatigue, fever, malaise, sweats, weakness, others EENTM: denies: blurred vision, double vision, ear bleeding, ear discharge, ear drainage, ear pain, ear ringing, eye pain, eye redness, hearing loss, mouth pain, mouth swelling, nasal discharge, nose bleeding, nose congestion, nose pain, photophobia, tearing, throat pain, throat swelling, voice changes, others Respiratory: reports: cough; denies: hemoptysis, orthopnea, SOB at rest, shortness of breath, SOB with excertion, stridor, wheezing, others Cardiovascular: denies: chest pain, dizzy spells, diaphoresis, Dyspnea on exertion, edema, irregular heart beat, left arm pain, lightheadedness, palpitations, PND, syncope, others Gastrointestinal: denies: abdomen distended, abdominal pain, blood streaked bowels, constipated, diarrhea, dysphagia, difficulty swallowing, hematemesis, melena, nausea, poor appetite, poor fluid intake, rectal bleeding, rectal pain, vomiting, others Genitourinary: denies: burning, dysuria, flank pain, frequency, hematuria, incontinence, penile discharge, penile sore, pain, testicle pain, testicle swelling, urgency, others Neurological: denies: dizziness, fainting, headache, left sided numbness, left sided weakness, numbness, paresthesia, pre-existing deficit, right sided numbness, right sided weakness, seizure, speech problems, tingling, tremors, weakness, others Musculoskeletal: denies: back pain, gout, joint pain, joint swelling, muscle pain, muscle stiffness, neck pain, others Integumetry: denies: bruises, change in color, change in hair/nails, dryness, laceration, lesions, lumps, rash, wounds, others Allergic/Immunocompromised: denies: Difficulty Healing, Frequent Infections, Hives, Itching, others Hematologic/Lymphatic: denies: anemia, blood clots, easy bleeding, easy bruising, swollen glands, others Endocrine: denies: excessive hunger, excessive sweating, excessive thirst, excessive urination, flushing, intolerance to cold, intolerance to heat, unexplained weight gain, unexplained weight loss, others Psychiatric: denies: anxiety, bipolar disorder, depression, hopeless, panic disorder, schizophrenia, sleepless, suicidal, others All Other Systems: Reviewed and Negative Physical Exam General Appearance: Moderate Distress, Obese HEENT: Normal ENT Inspection, Pharynx Normal, TMs Normal Neck: Full Range of Motion, Non-Tender, Normal, Normal Inspection Respiratory: Chest Non-Tender, Lungs Clear, No Accessory Muscle Use, No Respiratory Distress, Normal Breath Sounds Cardiovascular: No Edema, No JVD, No Murmur, No Gallop, Normal Peripheral Pulses, Regular Rate/Rhythm Breast Exam: Deferred Gastrointestinal: No Organomegaly, Non Tender, No Pulsatile Mass, Normal Bowel Sounds, Soft Genitalia: Deferred Pelvic: Deferred Rectal: Deferred Extremities: No calf tenderness, Normal capillary refill, Non-tender, Pedal edema Musculoskeletal : Apperance: Normal Neurologic: sewing demonstrator II-XII nml as Tested, Disoriented (Answering simple questions), No Motor Deficits, Normal Affect, Normal Mood, No Sensory Deficits Cerebellar Function: NOT DONE Reflexes: NOT DONE Skin: Dry, Normal Color, Warm, Wounds (Left nostril) Peripheral Pulses: 3+ Radial (R), 3+ Radial (L) Lymphatic: No Adenopathy Was a procedure done? Was a procedure done?: No EKG EKG : Pulse Rate (adult): 71 [place]: Normal Cardiac Rhythm: Afib Differential Dx Considerations may include: Anemia Electrolyte imbalance X-Ray, Labs, Meds, VS Vital Signs Date Time Temp Pulse Resp B/P (MAP) Pulse Ox O2 Delivery O2 Flow Rate FiO2 10/25/24 12:58 61 17 141/39 (73) 98 10/25/24 12:24 71 10/25/24 12:21 71 10/25/24 10:48 97.7 70 20 106/75 (85) 97 97.7 10/25/24 10:48 20 97 Nasal Cannula* 2 28 Lab Test 10/25/24 12:24 10/25/24 11:17 Range/Units Urine Color Yellow Yellow Urine Clarity Clear Clear Urine pH 6.5 5.0-9.0 Urine Specific [place] 1.020 1.001-1.035 Urine Protein Negative Negative Urine Ketones Negative Negative Urine Blood 1+ H Negative /uL Urine Nitrite Negative Negative Urine Bilirubin Negative Negative Urine Urobilinogen Normal Negative mg/dL Urine Leukocyte Esterase 2+ Negative /uL Urine RBC 90 0 - 3 /hpf Urine Microscopic WBC 39 H 0-3 /HPF Urine Squamous Epithelial Cells Few <5 /hpf Urine Bacteria None seen None Seen /hpf Urine Glucose Normal Normal mg/dL White Blood Count 8.5 4.4-10.8 10^3/uL Red Blood Count 4.93 4.5-5.90 10^6/uL Hemoglobin 13.5 13.5-17.5 g/dL Hematocrit 41.4 41.0-53.0 % Mean Corpuscular Volume 83.9 80.0-100.0 fL Mean Corpuscular Hemoglobin 27.4 L 28.0-32.0 pg Mean Corpuscular Hemoglobin Concent 32.7 32.0-36.0 g/dL Red Cell Distribution Width 16.5 H 11.8-14.3 % Platelet Count 218 140-450 10^3/uL Mean Platelet Volume 7.3 6.9-10.8 fL Neutrophils (%) (Auto) 78.2 37.0-80.0 % Lymphocytes (%) (Auto) 12.0 10.0-50.0 % Monocytes (%) (Auto) 8.0 0.0-12.0 % Eosinophils (%) (Auto) 1.5 0.0-7.0 % Basophils (%) (Auto) 0.3 0.0-2.0 % Neutrophils # (Auto) 6.6 1.6-8.6 10 ^3/uL Lymphocytes # (Auto) 1.0 0.4-5.4 10 ^3/uL Monocytes # (Auto) 0.7 0-1.3 10 ^3/uL Eosinophils # (Auto) 0.1 0-0.8 10 ^3/uL Basophils # (Auto) 0 0-0.2 10 ^3/uL Nucleated Red Blood Cells 0.3 % Sodium Level 138 136-145 mmol/L Potassium Level 4.2 3.5-5.1 mmol/L Chloride Level 103 98-107 mmol/L Carbon Dioxide Level 31 20-31 mmol/L Anion Gap 4 L 5-15 Blood Urea Nitrogen 14 9-23 mg/dL Creatinine 0.63 L 0.700-1.30 mg/dL Glomerular Filtration Rate Calc 103 >90 mL/min BUN/Creatinine Ratio 22.2 H 10.0-20.0 Serum Glucose 118 H 74-106 mg/dL Calcium Level 9.3 8.7-10.4 mg/dL Troponin I High Sensitivity 5 </=54 ng/L B-Type Natriuretic Peptide 134.03 0-100 pg/mL EXAM: CT HEAD WITHOUT CONTRAST INDICATION: altered TECHNIQUE: CT of the head without intravenous contrast. Radiation Dose : 1. Head: CT Dose: CTDI volume is 48.53 mGy. Dose-length product is 987.29 mGy*cm The dose indicators for CT are the volume Computed Tomography (CT) Dose Index (CTDIvol) and the Dose Length Product (DLP), and are measured in units of mGy and mGy-cm, respectively. These indicators are not patient dose, but values generated from the CT scanner acquisition factors. The report includes radiation exposure data for exposures received during this examination. COMPARISON: CT HEAD WITHOUT CONTRAST on DOS: 05/28/24, CT HEAD WITHOUT CONTRAST on DOS: 02/02/24 FINDINGS: 3.7 cm region of hypoattenuation in the right internal capsule with punctate foci of hyperattenuation. There is mild mass effect with partial effacement of the right lateral ventricle. There is approximately 0.2 cm of leftward midline shift. The sierra-white differentiation is intact. Patchy periventricular and subcortical white matter hypoattenuation is nonspecific but may be related to small vessel ischemic disease. The visualized paranasal sinuses and mastoid air cells are clear. The surrounding soft tissues and osseous structures are unremarkable. IMPRESSION: 3.7 region of hypoattenuation in the right internal capsule region with punctate foci of hyperattenuation. There is mild mass effect with partial effacement of the right lateral ventricle and approximately 0.2 cm of leftward midline shift. Differential consideration could include evolving infarct or mass. Clinical correlation advised. This can be further evaluated with MRI without and with intravenous contrast if clinically indicated. Critical Result: Infarct Findings discussed with Dr. Schumacher, at 10/25/2024 12:24 PM, and acknowledged receipt and understanding of the findings. Radiation optimization: All CT scans at this facility use at least one of these dose optimization techniques: automated exposure control mA and/or kV adjustment per patient size (includes targeted exams where dose is matched to clinical indication) or iterative reconstruction. T RADIOGRAPH Indication: sob Technique: Single frontal view of the chest was obtained Comparison: XY CHEST XRAY 1 VIEW on DOS: 06/29/24, XY CHEST PORTABLE on DOS: 06/28/24, XY CHEST PORTABLE on DOS: 05/28/24, XY CHEST PORTABLE on DOS: 02/15/24, XY CHEST PORTABLE on DOS: 02/14/24 FINDINGS: Lines and Tubes: None Lungs: Near-complete whiteout of the left lung, underlying neoplastic process can not be excluded. A large pleural effusion is felt to be less likely due to ipsilateral shift of the trachea. Pleura: Near-complete whiteout of the left lung, underlying neoplastic process can not be excluded. A large pleural effusion is felt to be less likely due to ipsilateral shift of the trachea. No pneumothorax. Cardiomediastinal contours: Unremarkable Bones: No acute osseous abnormality. IMPRESSION: Near-complete whiteout of the left lung, underlying neoplastic process can not be excluded. A large pleural effusion is felt to be less likely due to ipsilateral shift of the trachea. Patient does answer simple questions. He is obese. Not able to hold a conversation. Saturation 97% on nasal cannula. Blood pressure on the low side. Establish intravenous access. Was given fluids. Possible CHF. He has been bed ridden. Does not answer questions completely. Unable to get a good history. Reviewed his previous visit. Contacted his primary care physician. WBC within normal limits. Possible aspiration pneumonia. Was given clindamycin. Waiting for family. Continue cardiac monitoring. Time of 1ST Reevaluation: 11:25 Reevaluation 1ST: Unchanged Patient Education/Counseling: Diagnosis, Treatment, Prognosis Family Education/Counseling: No Family Present Departure 1 Departure Time of Disposition: 11:44 Impression: Primary Impression: Metabolic encephalopathy Additional Impression: Aspiration pneumonia Qualified Codes: J69.0 - Pneumonitis due to inhalation of food and vomit Disposition: ADMITTED INPATIENT Admit to: Med Surg Condition: Guarded Critical Care Note Critical Care Time?: No Stability Stability form required: No Heart Score Heart Score: Heart Score Response (Comments) Value History Slightly Suspicious 0 EKG Normal 0 Age >65 2 Risk Factors >3 or Hx ASHD 2 Troponin Normal limit 0 Total 4 I personally scribed for CHELO SCHUMACHER MD ([email or web address]) on 10/25/24 at 11:12. Electronically submitted by Tai Renae ([email or web address]). I personally scribed for CHELO SCHUMACHER MD ([email or web address]) on 10/25/24 at 13:01. Electronically submitted by Tai Renae ([email or web address]). CHELO SCHUMACHER MD Oct 25, 2024 11:12
[2024-10-25 11:34] LABS: Basophils # (auto) 0 10 ^3/uL (0-0.2); Basophils % (auto) 0.3 % (0.0-2.0); Eosinophils # (auto) 0.1 10 ^3/uL (0-0.8); Eosinophils % (auto) 1.5 % (0.0-7.0); Hematocrit 41.4 % (41.0-53.0); Hemoglobin 13.5 g/dL (13.5-17.5); Mean Corpuscular Hemoglobin 27.4 pg (28.0-32.0); Mean Corpuscular Hgb Conc. 32.7 g/dL (32.0-36.0); Mean Corpuscular Volume 83.9 fL (80.0-100.0); Monocytes # (auto) 0.7 10 ^3/uL (0-1.3); Neutrophils # (auto) 6.6 10 ^3/uL (1.6-8.6); Neutrophils % (auto) 78.2 % (37.0-80.0); Nucleated Red Blood Cells % 0.3 %; Platelet Count (auto) 218 10^3/uL (140-450); Red Blood Cells 4.93 10^6/uL (4.5-5.90); Red Cell Distribution Width 16.5 % (11.8-14.3); White Blood Cell 8.5 10^3/uL (4.4-10.8)
[2024-10-25 11:42] LABS: Chloride 103 mmol/L (98-107); Potassium 4.2 mmol/L (3.5-5.1); Sodium 138 mmol/L (136-145)
[2024-10-25 11:43] LABS: Calcium 9.3 mg/dL (8.7-10.4)
[2024-10-25 11:44] LABS: Anion Gap 4 (5-15); Carbon Dioxide 31 mmol/L (20-31)
[2024-10-25 11:48] LABS: BUN/Creatinine Ratio 22.2 (10.0-20.0); Blood Urea Nitrogen 14 mg/dL (9-23)
[2024-10-25 11:49] LABS: Glucose 118 mg/dL (74-106)
--- NOTE | 2024-10-25 12:27 | DVH ---
EXAM: CT HEAD WITHOUT CONTRAST INDICATION: altered TECHNIQUE: CT of the head without intravenous contrast. Radiation Dose : 1. Head: CT Dose: CTDI volume is 48.53 mGy. Dose-length product is 987.29 mGy*cm The dose indicators for CT are the volume Computed Tomography (CT) Dose Index (CTDIvol) and the Dose Length Product (DLP), and are measured in units of mGy and mGy-cm, respectively. These indicators are not patient dose, but values generated from the CT scanner acquisition factors. The report includes radiation exposure data for exposures received during this examination. COMPARISON: CT HEAD WITHOUT CONTRAST on DOS: 05/28/24, CT HEAD WITHOUT CONTRAST on DOS: 02/02/24 FINDINGS: 3.7 cm region of hypoattenuation in the right internal capsule with punctate foci of hyperattenuation . There is mild mass effect with partial effacement of the right lateral ventricle. There is approximat volodymyr 0.2 cm of leftward midline shift. The sierra-white differentiation is intact. Patchy periventricular and subcortical white matter hypoattenuation is nonspecific but may be related to small vessel ischemic disease. The visualized paranasal sinuses and mastoid air cells are clear. The surrounding soft tissues and osseous structures are unremarkable. IMPRESSION: 3.7 region of hypoattenuation in the right internal capsule region with punctate foci of hyperattenua tion. There is mild mass effect with partial effacement of the right lateral ventricle and approxima tely 0.2 cm of leftward midline shift. Differential consideration could include evolving infarct or m ass. Clinical correlation advised. This can be further evaluated with MRI without and with intraveno us contrast if clinically indicated. Critical Result: Infarct Findings discussed with Dr. Laura, at 10/25/2024 12:24 PM, and acknowledged receipt and understandi ng of the findings. Radiation optimization: All CT scans at this facility use at least one of these dose optimization dahiana hniques: automated exposure control mA and/or kV adjustment per patient size (includes targeted exam s where dose is matched to clinical indication) or iterative reconstruction.
--- NOTE | 2024-10-25 12:31 | DVH ---
CHEST RADIOGRAPH Indication: sob Technique: Single frontal view of the chest was obtained Comparison: XY CHEST XRAY 1 VIEW on DOS: 06/29/24, XY CHEST PORTABLE on DOS: 06/28/24, XY CHEST RAMIRO BLE on DOS: 05/28/24, XY CHEST PORTABLE on DOS: 02/15/24, XY CHEST PORTABLE on DOS: 02/14/24 FINDINGS: Lines and Tubes: None Lungs: Near-complete whiteout of the left lung, underlying neoplastic process can not be excluded. A large pleural effusion is felt to be less likely due to ipsilateral shift of the trachea. Pleura: Near-complete whiteout of the left lung, underlying neoplastic process can not be excluded. A large pleural effusion is felt to be less likely due to ipsilateral shift of the trachea. No pneumothorax. Cardiomediastinal contours: Unremarkable Bones: No acute osseous abnormality. IMPRESSION: Near-complete whiteout of the left lung, underlying neoplastic process can not be excluded. A large p leural effusion is felt to be less likely due to ipsilateral shift of the trachea.
[2024-10-25 12:36] LABS: Urine Bacteria None Seen /hpf (None Seen)
[2024-10-25 12:42] LABS: Urine Blood 1+ /uL (Negative); Urine Clarity Clear (Clear); Urine Color Yellow (Yellow); Urine Protein, UAD Negative (Negative); Urine Squamous Epithelial Cell FEW /hpf (<5); Urine Urobilinogen Normal (Negative); Urine WBC 39 /HPF (0-3); Urine pH 6.5 (5.0-9.0)
[2024-10-25 13:10] VITALS: PULSE 68; RESP 18; O2SAT 95
[2024-10-25 13:42] VITALS: BP 111/53; PULSE 61; RESP 17; TEMP 98.5; O2SAT 97
--- NOTE | 2024-10-25 18:27 | ECG ---
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
== END 2024-10-25 12:23 | disposition short-term general hospital (02) ==
LOC: ER 10:42 → EDBD 10:42 → ER 12:23
DX: G93.41 Metabolic encephalopathy (principal); J69.0 Pneumonitis due to inhalation of food and vomit; I48.91 Unspecified atrial fibrillation; I11.0 Hypertensive heart disease with heart failure; I50.9 Heart failure, unspecified; E11.9 Type 2 diabetes mellitus without complications; Z79.82 Long term (current) use of aspirin; Z79.899 Other long term (current) drug therapy
CPT/HCPCS: 36415; 70450; 71045; 80048; 81001; 82947; 83880; 84484; 85025; 93005